=== PATIENT | female | born 1945 | race Caucasian/White ===

== ENCOUNTER → 2018-05-16 15:55 | Outpatient (REF) | payer OTHER, SELFPAY ==
[2018-05-16 20:14] LABS: HCT 38.5 % (36.0-46.0); HGB 12.4 g/dL (12.0-15.5); Mean Corp. HGB Concentration 32.2 g/dL (32.0-36.0); Mean Platelet Volume 11.5 fL (8.0-11.0); Platelet Count 198 x1000/uL (130-400); RBC 4.28 m/cumm (4.00-5.20); RBC Distribution Width 13.3 % (11.7-14.6); White Blood Cell Count 7.28 k/cumm (4.4-10.8)
[2018-05-16 22:05] LABS: ALT 19 U/L (12-78); AST 14 U/L (15-37); Albumin 3.7 g/dL (3.4-5.0); Alkaline Phosphatase 62 U/L (46-116); Anion Gap 9.3 mmol/L (3-11); BUN 13 mg/dL (7-18); Bilirubin, Total 0.4 mg/dL (0.2-1.0); CO2 27.7 mmol/L (21.0-32.0); CREATININE 0.88 mg/dL (0.55-1.02); Calcium 8.8 mg/dL (8.5-10.1); Chloride 105 mmol/L (98-107); Glucose 81 mg/dL (70-100); Potassium 3.8 mmol/L (3.5-5.1); Sodium 142 mmol/L (136-145); TSH (W/Ref FT4) 1.99 uIU/mL (0.358-3.74); Total Protein 6.8 g/dL (6.4-8.2); Vitamin B12 597 pg/mL (193-986)
== END ==
LOC: NCHCN 15:55
PROVIDERS: PCP Family Medicine; Visit Provider Family Medicine
DX: R41.3 Other amnesia (principal)
CPT/HCPCS: 80053; 85027; 82607; 82746; 84443

== ENCOUNTER → 2018-12-18 13:50 | Outpatient (BNVA) | payer OTHER, SELFPAY | PROVIDERS: PCP Family Medicine; Referring Provider Family Medicine; Visit Provider Nurse Practitioner Adult Health | DX: G31.84 Mild cognitive impairment of uncertain or unknown etiology (principal); I10 Essential (primary) hypertension | CPT/HCPCS: 99204; 99215 ==

== ENCOUNTER 2018-12-25 00:42 | Outpatient (CLI) | payer OTHER, SELFPAY ==
--- NOTE | 2018-12-25 15:30 | DI.MRI_ITS ---
SYMPTOM/DIAGNOSIS: NEW MEMORY PROBLEMS, R41.3, OTHER AMNESIA BRAIN MRI: The study was conducted according to the usual protocol. T 2 sagittal, T 2 axial, diffusion weighted axial, T 2 axial hemo, T 1 axial and T 2 FLAIR blade sequences were performed. A few scattered small regions of increased signal are noted in the frontoparietal white matter bilaterally, most consistent with small vessel disease. There is no evidence of a hemorrhage or mass. The ventricles are normal. The normal flow void is demonstrated in the [place] and visualized segments of the cerebral arteries. SUMMARY: No significant interval change when compared with the prior study of 05/18/2012. No evidence of a hemorrhage or mass. There are findings consistent with small vessel disease, nil else.
[2018-12-25 17:28] LABS: TSH 2.38 uIU/mL (0.358-3.74); Vitamin B12 1442 pg/mL (193-986)
== END 2018-12-25 01:02 ==
PROVIDERS: PCP Family Medicine; Visit Provider Nurse Practitioner Adult Health
DX: R41.3 Other amnesia (principal); R41.89 Other symptoms and signs involving cognitive functions and awareness; I67.9 Cerebrovascular disease, unspecified
CPT/HCPCS: 36415; 70551; 82607; 84443

== ENCOUNTER 2019-04-15 16:50 | Outpatient (REF) | payer OTHER, SELFPAY ==
[2019-04-15 18:25] LABS: HCT 38.2 % (36.0-46.0); HGB 12.3 g/dL (12.0-15.5); Mean Corp. HGB Concentration 32.2 g/dL (32.0-36.0); Mean Corpuscular Hemoglobin 29.1 pg (27.0-33.0); Mean Corpuscular Volume 90.5 fL (80-95); Mean Platelet Volume 11.2 fL (8.0-11.0); Platelet Count 196 x1000/uL (130-400); RBC 4.22 m/cumm (4.00-5.20); RBC Distribution Width 13.8 % (11.7-14.6); White Blood Cell Count 7.46 k/cumm (4.4-10.8)
[2019-04-15 18:47] LABS: Anion Gap 8.7 mmol/L (3-11); BUN 18 mg/dL (7-18); CO2 32.3 mmol/L (21.0-32.0); CREATININE 0.96 mg/dL (0.55-1.02); Calcium 9.1 mg/dL (8.5-10.1); Chloride 103 mmol/L (98-107); Estimated GFR 56.66 (mL/min/1.73m2); Ferritin 271 ng/mL (8-388); Glucose 82 mg/dL (70-100); Potassium 3.9 mmol/L (3.5-5.1); Sodium 144 mmol/L (136-145)
== END 2019-04-15 17:10 ==
LOC: NCHCN 16:50
PROVIDERS: PCP Family Medicine; Visit Provider Family Medicine
DX: I10 Essential (primary) hypertension (principal); D64.9 Anemia, unspecified
CPT/HCPCS: 80048; 85027; 82728

== ENCOUNTER 2019-05-08 00:56 | Outpatient (CLI) | payer OTHER, SELFPAY ==
--- NOTE | 2019-05-08 15:50 | DI.MAMMO_ITS ---
SYMPTOM/DIAGNOSIS: [facility] Z00.00 MAMMOGRAM: Mammograms were interpreted according to the usual protocol including computer analysis with CAD system, tomosynthesis and C view imaging. Comparison is made with prior examinations. Breast density category B. No suspicious microcalcifications are seen. No suspicious masses are present. There is a well circumscribed nodule in the lower inner quadrant of the left breast. It has shown slight interval increase in size compared to the prior examination. A spot compression and left breast ultrasound are requested for re-evaluation. IMPRESSION: Additional views of the left breast as described above. Category 0. Breast density category B. MQSA ASSESSMENT OF FINDINGS: Incomplete: Needs additional imaging evaluation. Category 0. Patient will receive a letter notifying them of these results. BI-RADS category B. There are scattered areas of fibroglandular density.
== END 2019-05-08 01:16 ==
PROVIDERS: PCP Family Medicine; Visit Provider Family Medicine
DX: Z12.31 Encounter for screening mammogram for malignant neoplasm of breast (principal); R92.8 Other abnormal and inconclusive findings on diagnostic imaging of breast
CPT/HCPCS: 77063; 77067

== ENCOUNTER 2019-05-24 02:22 | Outpatient (CLI) | payer OTHER, SELFPAY ==
--- NOTE | 2019-05-24 14:53 | DI.COMBO_ITS ---
SYMPTOMS/DIAGNOSIS: F/U ABNORMAL MAMMO, NODULE LEFT LOWER INNER QUADRANT ADDITIONAL MAMMOGRAPHIC VIEWS, LEFT BREAST, AND LEFT BREAST ULTRASOUND: Additional images are interpreted according to the usual protocol including tomosynthesis and 2D imaging. Additional mammographic views of the left breast and left breast ultrasound are interpreted in conjunction. These examinations were obtained to evaluate an enlarging mass of the left breast in approximately the 8 o'clock position. This mass was previously noted on examination of 08/25/2017 and ultrasound at that time showed the mass to be cystic and measuring about 8 mm in greatest diameter. On today's examination, the cystic mass is again identified with well- circumscribed borders and very low level internal echogenicity. No internal vascular flow. Dimensions are about 13 x 9 x 7 mm. CONCLUSION: Findings consistent with benign breast cyst, possibly with high protein content or internal hemorrhage. Follow-up ultrasound and left breast mammogram recommended in six months. Category 3, breast density category B. MQSA ASSESSMENT OF FINDINGS: Probably benign. Six month follow-up recommended. Category 3. Patient will receive a letter notifying them of these results. BI-RADS category B. There are scattered areas of fibroglandular density.
== END 2019-05-24 02:42 ==
PROVIDERS: PCP Family Medicine; Visit Provider Family Medicine
DX: N60.02 Solitary cyst of left breast (principal)
CPT/HCPCS: 76642; 77063; 77067

== ENCOUNTER 2019-10-03 11:27 | Observation (INO) | payer OTHER, SELFPAY ==
[2019-10-03] VITALS (34 sets, daily range): BP systolic 127–154; BP diastolic 41–62; PULSE 43–66; RESP 8–18; TEMP 36.8–37.2; O2SAT 95–99
--- NOTE | 2019-10-03 12:10 | DI.CT_ITS ---
EXAM: CT HEAD - STROKE PROTOCOL CT HEAD - STROKE PROTOCOL CLINICAL HISTORY: L-sided facial droop, L hand weakness.resolved. L-sided facial droop, L hand weakness.resolved TECHNIQUE: Imaging Protocol: Axial computed tomography images with coronal and sagittal reformatted images were created and reviewed COMPARISON: No exams were available for comparison FINDINGS: The ventricular system is normal in appearance. No evidence of acute intracranial hemorrhage, mass effect, or midline shift. The orbital structures are unremarkable. The temporal bone structures appear intact. Calvarium: Normal. Visualized Paranasal sinuses/Mastoids: Clear. IMPRESSION: Normal cranial CT. DATA REPOSITORY: All CT scans at this facility are submitted to the National Radiology Data Registry (NRDR) Dose Index Registry (DIR) with the [employer] (ACR). RADIATION OPTIMIZATION: All CT scans at this facility use at least one of these dose optimization te chniques: automated exposure control; mA and/or kV adjustment per patient size (includes targeted exa ms where dose is matched to clinical indication); or iterative reconstruction.
--- NOTE | 2019-10-03 12:11 | W.ED.GENAD ---
Discharge Plan Disposition Patient Disposition: [facility] INPATIENT Discharge Details Chief Complaint: CVA/TIA Clinical Impression: TIA (transient ischemic attack), Bradycardia Primary Care Provider: Cristiane Rodriguez ED Provider: Iker Muñiz Home Meds and New Rx's Prescriptions: No Action pantoprazole 40 mg tablet,delayed release (DR/EC) 40 mg PO QAM RF: 0 cyanocobalamin (vitamin B-12) 1,000 mcg capsule 1,000 mcg PO DAILY RF: 0 ascorbic acid (vitamin C) 1,000 mg tablet 1 gm PO DAILY RF: 0 calcium carbonate [Calcium 600] 600 mg calcium (1,500 mg) tablet 600 mg PO TID RF: 0 aspirin [Aspir-81] 81 MG tablet,delayed release (DR/EC) 81 mg PO DAILY RF: 0 atenolol 50 MG tablet 50 mg PO DAILY RF: 0 Mina-Citrate 1 EACH tablet 1 ea PO DAILY RF: 0 citalopram [Celexa] 40 MG tablet 40 mg PO DAILY RF: 0 sertraline 100 mg Tablet 100 mg PO DAILY RF: 0 chlorthalidone 50 mg Tablet 50 mg PO DAILY RF: 0 famotidine 20 mg Tablet 40 mg PO DAILY RF: 0 PreserVision AREDS [id number] Tablet 1 tab PO DAILY RF: 0 Tumeric 1,000 mg PO DAILY RF: 0 Medical Decision Making This is a nontoxic-appearing 74-year-old female who presents to the emergency department with symptoms concerning for TIA earlier this morning. She shows sinus bradycardia on the monitor with a pulse rate as low as 45 bpm. Has had a stable blood pressure with systolics in the 150 range. No heart block on EKG. Her labs are negative for anything acute at this time. Head CT read as normal. Case discussed with neurology who also agrees that TIA most likely. Plan is to admit with MRI/MRA head neck possible cardiac echo and prolonged telemetry Leung. Aspirin 81 mg p.o. already given in the field. Case discussed with Dr. Pedor who will admit. HPI General Date/Time Provider Initiated Documentation: 10/03/19 11:38. HPI Narrative: Patient is a 74-year-old female with significant past medical history for hypertension, GERD depression and anxiety who presents to the emergency department with reported left-sided facial droop and left arm weakness most notable at 930 this morning witnessed by her daughter whom she lives with. Symptoms have completely resolved since the onset at 9:30 AM. She states that she was having difficulty with word finding along with weakness in her left hand which resulted in her dropping her cell phone roughly 6-8 times. She denies any symptoms similar to this in the past. She denies any recent chest pain however has had intermittent episodes of a racing heart sensation with lightheadedness. She denies any recent illness. No head or neck trauma. She has full recollection of the event preceding. She does state that over the last several months she has been under substantial stress secondary to having to take care of her who is been ill. She also reports intermittent bouts of word finding/word searching events. Related Data Home Medications Medication Instructions Recorded Confirmed Mina-Citrate 1 ea PO DAILY 01/22/16 10/03/19 aspirin [Aspir-81] 81 mg PO DAILY tab-cap 01/22/16 10/03/19 atenolol 50 mg PO DAILY tab-cap 01/22/16 10/03/19 citalopram [Celexa] 40 mg PO DAILY tab-cap 01/22/16 10/03/19 ascorbic acid (vitamin C) 1,000 mg 1 gm PO DAILY tab 12/18/18 10/03/19 tablet calcium carbonate 600 mg calcium 600 mg PO TID tab 12/18/18 10/03/19 (1,500 mg) tablet cyanocobalamin (vitamin B-12) 1,000 mcg PO DAILY 12/18/18 10/03/19 1,000 mcg capsule pantoprazole 40 mg tablet,delayed 40 mg PO QAM tab 12/18/18 10/03/19 release Tumeric 1,000 mg PO DAILY 10/03/19 10/03/19 chlorthalidone 50 mg PO DAILY 10/03/19 10/03/19 famotidine 40 mg PO DAILY 10/03/19 10/03/19 sertraline 100 mg PO DAILY 10/03/19 10/03/19 vitamins A,C,F-brdr-dgnzxs 1 tab PO DAILY 10/03/19 10/03/19 [PreserVision AREDS] Allergies Allergy/AdvReac Type Severity Reaction Status Date / Time Fish Containing Products Allergy Intermediate Verified 10/03/19 11:43 Penicillins Allergy Intermediate Verified 10/03/19 11:43 lactose AdvReac Intermediate Diarrhea Unverified 10/03/19 11:43 General Stated Complaint: CVA/TIA KYLEE: 2 Review of Systems Constitutional Constitutional: Denies body ache(s), Denies chills, Denies fatigue, Denies frequent falls, Denies headache(s) and Denies lethargy Eyes Eyes: Denies blind spots, Denies blurry vision, Denies change in vision, Denies diplopia, Denies loss of peripheral vision and Denies loss of vision ENT Ears, Nose, Mouth, and Throat: Denies vertigo, Denies dizziness, Denies headache(s) and Denies disequilibrium Cardiovascular Cardiovascular: Denies chest pain, Denies diaphoresis, Denies syncope, Reports rapid heart rate, Denies edema, Denies irregular heart rhythm, Denies claudication, Denies leg edema, Reports lightheadedness, Denies palpitations, Denies dyspnea and Denies orthopnea Respiratory Respiratory: Denies dyspnea Gastrointestinal Gastrointestinal: Denies diarrhea, Denies nausea and Denies vomiting Musculoskeletal Musculoskeletal: Denies abnormal gait, Denies back pain, Denies arthralgias and Denies numbness Integumentary/Breasts Skin/Breast: Denies rash Neurologic Neurologic: Denies abnormal gait, Denies behavioral changes, Denies confusion, Denies vertigo, Denies dizziness, Denies syncope, Denies frequent falls, Denies headache(s), Reports lack of coordination, Reports focal weakness, Denies loss of vision, Denies numbness, Denies convulsions, Denies seizure-like activity, Denies sensory deficit, Denies paresthesias and Denies disequilibrium Psychiatric Psychiatric: Denies behavioral changes and Denies confusion Endocrine Endocrine: Denies fatigue and Denies palpitations Hematologic/Lymphatic Hematologic/Lymphatic: Denies easy bleeding and Denies easy bruising [facility] Medical History Anxiety (Chronic) Depression (Chronic) GERD (gastroesophageal reflux disease) Heart burn Hypertension (Chronic) Surgical History Bladder Surgery Cholecystectomy EGD - MAC (07/12/17) pubovaginal sling Vaginal hysterectomy Family History Mother Colon cancer Social History Smoking/Tobacco Use Status: Former Tobacco Use Drug use: Never Exam Const General: cooperative, healthy appearing, comfortable, no acute distress and well developed Orientation: alert, awake and oriented x3 HENMT Head: normal to inspection, no palpable skull fracture, normocephalic and atraumatic Ears: hearing grossly normal bilaterally General nose exam: external nose normal Face and sinus: normal facial exam Mouth: oral mucosae normal Teeth and gingiva: dentition normal Throat: posterior oropharynx normal Eyes General: appearance normal, both eyes and all related structures Visual Mendoza: normal visual mendoza by confrontation Alignment and Position: alignment normal Periorbital: periorbital findings normal Eyelids: eyelids normal Conjunctivae: conjunctivae normal Pupils: PERRL EOM: EOM intact bilaterally Neck Neck: normal visual inspection, full ROM and no meningeal signs Chest Chest: normal inspection of the chest and normal palpation of entire chest wall Resp Effort & Inspection: normal respiratory effort and able to speak in complete sentences Auscultation: clear to auscultation bilaterally Cardio Rate: regular rate Rhythm: regular rhythm Heart Sounds: S1 normal and S2 normal Bruits: no carotid bruits Pulses: normal peripheral pulses GI Inspection: normal to inspection Palpation: soft Skin General skin exam: no rashes or lesions noted Neuro Cranial Nerves: CN's II-XI intact bilaterally Cognition: normal cognition Speech: speech normal Gait: normal gait Motor: muscle tone normal throughout Sensory Exam: no sensory deficits noted Extrem General: normal to inspection Course Vital Signs Vital signs: Vital Signs Temperature 37 C 10/03/19 11:38 Pulse 54 L 10/03/19 11:38 Respiratory Rate 13 10/03/19 11:38 Blood Pressure 154/58 H 10/03/19 11:38 Pulse Oximetry 97 10/03/19 11:38 Temperature 37 C 10/03/19 11:38 Temperature Source Skin 10/03/19 11:38 Pulse 54 L 10/03/19 11:38 Respiratory Rate 13 10/03/19 11:38 Respiratory Effort Non-Labored 10/03/19 11:38 Blood Pressure 154/58 H 10/03/19 11:38 Blood Pressure Position Sitting 10/03/19 11:38 Pulse Oximetry 97 10/03/19 11:38 Oxygen Delivery Method Room Air 10/03/19 11:38 Oxygen Flow Rate 0 10/03/19 11:38 Pain Level 0 10/03/19 11:38
--- NOTE | 2019-10-03 12:16 | DI.RAD_ITS ---
EXAM: XR CHEST 2V PA LATERAL CLINICAL HISTORY: Left hand/facial weakness TECHNIQUE: COMPARISON: BARIUM SWALLOW UGI 2V CXR from 09/01/2010 FINDINGS: The heart is mildly enlarged. There is a large retrocardiac hiatus hernia. Lungs appear grossly michelle ar and well expanded. No pleural effusion seen. IMPRESSION: No evidence of acute process.
[2019-10-03 13:06] LABS: Abs Immature Grans 0.02 k/cumm (0.0-0.09); Absolute Basophil Count 0.03 k/cumm (0.0-0.2); Absolute Eosinophil Count 0.16 k/cumm (0.0-0.7); Absolute Lymphocyte Count 2.07 k/cumm (1.2-3.4); Absolute Neutrophil Count 3.76 k/cumm (1.2-6.7); Basophils % 0.5; Eosinophils % 2.4; HCT 39.1 % (36.0-46.0); HGB 12.4 g/dL (12.0-15.5); Immature Grans % 0.3; Lymphocytes % 31.2; Mean Corp. HGB Concentration 31.7 g/dL (32.0-36.0); Mean Corpuscular Hemoglobin 28.6 pg (27.0-33.0); Mean Corpuscular Volume 90.3 fL (80-95); Mean Platelet Volume 10.5 fL (8.0-11.0); Neutrophils % 56.6; Platelet Count 209 x1000/uL (130-400); RBC 4.33 m/cumm (4.00-5.20); RBC Distribution Width 13.8 % (11.7-14.6); White Blood Cell Count 6.64 k/cumm (4.4-10.8)
[2019-10-03 13:22] LABS: ALT 13 U/L (14-59); AST 12 U/L (15-37); Albumin 3.6 g/dL (3.4-5.0); Alkaline Phosphatase 52 U/L (46-116); Anion Gap 8.9 mmol/L (3-11); BUN 18 mg/dL (7-18); Bilirubin, Total 0.5 mg/dL (0.2-1.0); CO2 30.1 mmol/L (21.0-32.0); Calcium 8.9 mg/dL (8.5-10.1); Chloride 106 mmol/L (98-107); Glucose 95 mg/dL (74-106); Potassium 3.3 mmol/L (3.5-5.1); Sodium 145 mmol/L (136-145); Total Protein 6.9 g/dL (6.4-8.2)
[2019-10-03 13:27] LABS: Troponin I < 0.05 ng/Ml (<0.06)
--- NOTE | 2019-10-03 14:23 | HPE_ITS ---
Date of service: 10/03/19 Time of Service: 14:23 Assessment and Plan Assessment and plan (1) TIA (transient ischemic attack): Status: Acute Assessment and plan: presentation of L sided facial droop is concerning for TIA, however patient is currently without neuro defictis. Her expressive aphasia is not noticeable on exam and more likely chronic and her baseline. will admit for TIA/stroke workup. will monitor on tele. MRI pending. will cont aspirin and begin empiric statin. lipid panel and tsh pending. (2) Bradycardia: Status: Acute Assessment and plan: mild, and likely secondary to beta gaby. EKG with sinus bradycardia no heart block, arrythmia, or acute ischemia. BP stable. will hold atenolol (3) Hypertension: Status: Chronic Assessment and plan: BP controlled below goal. would allow permissive hypertension for first 24 hrs in case this is acute stroke. will hold atenolol as above. will also hold chlorthalidone (4) GERD (gastroesophageal reflux disease): Status: None Assessment and plan: with hiatal hernia, will cont R[employer] SCI[employer]IST h2 gaby and ppi (5) DVT prophylaxis: Status: Acute Assessment and plan: sub q lovenox History of Present Illness History of Present Illness Chief Complaint: L sided facial droop Narrative: 74 y/o F with cognitive impairment (followed by neurology), GERD, HTN, depression who presents with L sided facial droop beginning around 9:30 am the day of admission. According to patients daughter she has had more word finding difficulty than usual recently however it is unclear how acute this is. patient has no vision change, weakness, change in strength or sensation. She has some chronic dysphagia from her GERD/hiatel hernia but has been eating and drinking and swallowing pills today. Upon arrival to the ED she was bradycardic to the 40s. EKG showed . Troponin was negative. CT head showed no acute abnormalities. CXR mild cardiomegaly and known hiatal hernia. Labs notable only for mild hypokalemia. Glucose normal. TSH pending but was normal in December. Patient has no focal neurologic defictis on arrival. Case discussed between ED and neurology. MRI head/neck recommended. 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 She is under stress because his health is declining. Her daugther Ksenia is present at the time of exam as well. COUNT INCLUDES THE [facility] Medical History Anxiety (Chronic) Depression (Chronic) GERD (gastroesophageal reflux disease) Heart burn Hypertension (Chronic) Surgical History Bladder Surgery Cholecystectomy EGD - MAC (07/12/17) pubovaginal sling Vaginal hysterectomy Family History Mother Colon cancer Social History Smoking/Tobacco Use Status: Former Tobacco Use Drug use: Never Meds Home Medications and Allergies Home Medications Medication Instructions Recorded Confirmed Type Mina-Citrate 1 ea PO DAILY 01/22/16 10/03/19 History aspirin [Aspir-81] 81 mg PO DAILY tab-cap 01/22/16 10/03/19 History atenolol 50 mg PO DAILY tab-cap 01/22/16 10/03/19 History citalopram [Celexa] 40 mg PO DAILY tab-cap 01/22/16 10/03/19 History ascorbic acid (vitamin C) 1,000 mg 1 gm PO DAILY tab 12/18/18 10/03/19 History tablet calcium carbonate 600 mg calcium 600 mg PO TID tab 12/18/18 10/03/19 History (1,500 mg) tablet cyanocobalamin (vitamin B-12) 1,000 mcg PO DAILY 12/18/18 10/03/19 History 1,000 mcg capsule pantoprazole 40 mg tablet,delayed 40 mg PO QAM tab 12/18/18 10/03/19 History release Tumeric 1,000 mg PO DAILY 10/03/19 10/03/19 History chlorthalidone 50 mg PO DAILY 10/03/19 10/03/19 History famotidine 40 mg PO DAILY 10/03/19 10/03/19 History sertraline 100 mg PO DAILY 10/03/19 10/03/19 History vitamins A,C,B-dgtz-tngdak 1 tab PO DAILY 10/03/19 10/03/19 History [PreserVision AREDS] Allergies Allergy/AdvReac Type Severity Reaction Status Date / Time Fish Containing Products Allergy Intermediate Verified 10/03/19 11:43 Penicillins Allergy Intermediate Verified 10/03/19 11:43 lactose AdvReac Intermediate Diarrhea Unverified 10/03/19 11:43 Exam Narrative Exam Narrative: GEN: NAD, appears younger than stated HEENT: NCAT, MMM NECK: no carotid bruits CV: bradycardic, regular, no murmur LUNGS: CTAB. no w/r/r ABS: soft, NT, ND NEURO: CNII-XII intact, EOMI, PERRL, AAOX3, strength 5/5 in bl UE and LE, sensation in UE and LE equal and intact, cerebellar testing is normal Results Labs Result diagrams: 10/03/19 12:59 10/03/19 12:59 Labs: Laboratory Results - last 24 hr 10/03/19 10/03/19 12:59 12:59 WBC 6.64 RBC 4.33 Hgb 12.4 Hct 39.1 MCV 90.3 MCH 28.6 MCHC 31.7 L RDW 13.8 Plt Count 209 MPV 10.5 Immature Gran % 0.3 Neutrophils % 56.6 Lymphocytes % 31.2 Monocytes % 9.0 Eosinophils % 2.4 Basophils % 0.5 Absolute Neutrophils 3.76 Absolute Lymphocytes 2.07 Absolute Monocytes 0.60 Absolute Eosinophils 0.16 Absolute Basophils 0.03 Sodium 145 Potassium 3.3 L Chloride 106 Carbon Dioxide 30.1 Anion Gap 8.9 BUN 18 Creatinine 0.90 Estimated GFR/1.73 m2 >= 60.00 Glucose 95 Calcium 8.9 Magnesium 2.0 Total Bilirubin 0.5 AST 12 L ALT 13 L Alkaline Phosphatase 52 Troponin I < 0.05 Total Protein 6.9 Albumin 3.6 Last Vital Signs Temp 37 C 10/03/19 11:38 Pulse 47 L 10/03/19 13:46 Resp 17 10/03/19 13:50 BP 145/47 H 10/03/19 13:46 Pulse Ox 96 10/03/19 13:50
[2019-10-03 14:26] LABS: Bilirubin Negative (Negative); Blood Trace-intact (Negative); Clarity Clear (Clear); Glucose Negative (Negative); Ketones Negative (Negative); Leukocyte Esterase Negative (Negative); Nitrite Negative (Negative); Specific Gravity 1.015 (1.005-1.025); Urobilinogen 0.2 EU/dL (Up TO 0.2)
[2019-10-03 14:47] LABS: RBC 0-2 HPF (0-2); WBC 0-2 HPF (0-5)
[2019-10-03 14:48] LABS: Bacteria Rare HPF (Negative); C & S Indicated? No; Casts Negative LPF (Negative); Crystals Negative HPF (Negative); Epithelial Cells Rare HPF (Negative); Mucus Trace (Negative)
[2019-10-03 15:17] LABS: TSH 1.43 uIU/mL (0.36-3.74)
--- NOTE | 2019-10-03 15:17 | DI.MRI_ITS ---
EXAM: MR BRAIN WO CLINICAL HISTORY: tia vs stroke,cognitive impairment, r41.3 TECHNIQUE: Multiplanar multisequence MRI was performed. COMPARISON: MR ANGIO BRAIN WO from 10/03/2019 CT HEAD - STROKE PROTOCOL from 10/03/2019 MR ANGIO NECK WO from 10/03/2019 FINDINGS: MR examination of the brain was performed according to the usual protocol. Ventricular system is nor mal in appearance. The orbital and temporal bone structures appear intact. No significant signal ab normality identified on FLAIR images, however there is a small focal area of high signal seen in the temporal lobe cortex of the high sylvian fissure. This corresponds to a focus of ADC map decreased s ignal. The findings are suggestive of a small focal cortical infarction. Susceptibility weighted eagle ges show abnormal signal at this site as well, presumably representing microhemorrhage. 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
--- NOTE | 2019-10-03 15:17 | DI.MRI_ITS ---
EXAM: MR ANGIO NECK WO CLINICAL HISTORY: tia. TECHNIQUE: Multiplanar multisequence MRI was performed. COMPARISON: No exams were available for comparison FINDINGS: MR angiography of the cervical region was performed according to the usual protocol utilizing 2D and 3D imaging. Proximal common carotid arteries not well visualized. Distal common carotid, internal c arotid, and external carotid arteries are unremarkable in appearance with no evidence of aneurysm dis section or stenosis. IMPRESSION: Negative MRA carotid region.
--- NOTE | 2019-10-03 15:17 | DI.MRI_ITS ---
EXAM: MR ANGIO BRAIN WO CLINICAL HISTORY: tia. TECHNIQUE: Multiplanar multisequence MRI was performed. COMPARISON: No exams were available for comparison FINDINGS: MR angiography the [id number] region was performed according to protocol utilizing 2D and 3D im aging. The vertebral and basilar arteries are unremarkable with no evidence of aneurysm stenosis or dissecti on. Internal carotid arteries are unremarkable bilaterally with no evidence of aneurysm stenosis or disse ction. Middle cerebral anterior cerebral and posterior cerebral arteries are unremarkable in appeara nce with no evidence of aneurysm dissection or stenosis. The right anterior cerebral artery is suppl ied across anterior communicating artery. IMPRESSION: Negative MR angiography [id number] region
--- NOTE | 2019-10-03 16:17 | DI.VRAD_ITS ---
PROCEDURE INFORMATION: Exam: MR Angiography Neck Without Contrast Exam date and time: 10/03/2019 4:02 PM Age: 74 years old Clinical indication: Cognitive deficit; Type not specified TECHNIQUE: Imaging protocol: Magnetic resonance angiography of the neck without contrast. 3D rendering: MIP and/or 3D reconstructed images were created by the technologist. COMPARISON: No relevant prior studies available. FINDINGS: Right common carotid artery: Unremarkable. No stenosis. No dissection or occlusion. Right internal carotid artery: Unremarkable extracranial segment. No stenosis. No dissection or occlusion. Right external carotid artery: Unremarkable. No stenosis. No dissection or occlusion of the origin. Right vertebral artery: Unremarkable. No stenosis. No dissection or occlusion. Left common carotid artery: Unremarkable. No stenosis. No dissection or occlusion. Left internal carotid artery: Unremarkable extracranial segment. No stenosis. No dissection or occlusion. Left external carotid artery: Unremarkable. No stenosis. No dissection or occlusion of the origin. Left vertebral artery: Unremarkable. No stenosis. No dissection or occlusion. IMPRESSION: No acute abnormality. COMMENT: Reference per NASCET criteria for degree of stenosis: Mild: less than 50% stenosis. Moderate: 50-69% stenosis. Severe: 70-94% stenosis. Near occlusion: 95-99% stenosis. Dictated and Authenticated by: Juan Rodgers MD. Ordering:BEATRIZ Mathur MD
--- NOTE | 2019-10-03 16:22 | DI.VRAD_ITS ---
PROCEDURE INFORMATION: Exam: MR Angiogram Head Without and With Contrast, Arteries Exam date and time: 10/03/2019 4:02 PM Age: 74 years old Clinical indication: Cognitive deficit; Type not specified TECHNIQUE: Imaging protocol: MR angiogram head without and with intravenous contrast. Exam focused on the arteries. 3D rendering: MIP and/or 3D reconstructed images were created by the technologist. COMPARISON: MR brain wo 12/25/2018 4:59 PM FINDINGS: Right internal carotid artery: Unremarkable. Intracranial segment is patent with no significant stenosis. No aneurysm. Right anterior cerebral artery: Unremarkable. No occlusion or significant stenosis. No aneurysm. Right middle cerebral artery: Unremarkable. No occlusion or significant stenosis. No aneurysm. Right posterior cerebral artery: Unremarkable. No occlusion or significant stenosis. No aneurysm. Right vertebral artery: Unremarkable. No occlusion or significant stenosis. No aneurysm. Left internal carotid artery: Unremarkable. Intracranial segment is patent with no significant stenosis. No aneurysm. Left anterior cerebral artery: Unremarkable. No occlusion or significant stenosis. No aneurysm. Left middle cerebral artery: Unremarkable. No occlusion or significant stenosis. No aneurysm. Left posterior cerebral artery: Unremarkable. No occlusion or significant stenosis. No aneurysm. Left vertebral artery: Unremarkable. No occlusion or significant stenosis. No aneurysm. Basilar artery: Unremarkable. No occlusion or significant stenosis. No aneurysm. IMPRESSION: No acute abnormality. Dictated and Authenticated by: Juan Rodgers MD. Ordering:BEATRIZ Mathur MD
--- NOTE | 2019-10-03 16:30 | DI.VRAD_ITS ---
PROCEDURE INFORMATION: Exam: MR Head Without Contrast Exam date and time: 10/03/2019 4:07 PM Age: 74 years old Clinical indication: Other: Cognitive impairment TECHNIQUE: Imaging protocol: MR of the head without contrast. 3D rendering: MIP and/or 3D reconstructed images were created by the technologist. COMPARISON: MR brain wo 12/25/2018 4:59 PM FINDINGS: Brain: Mild chronic microvascular ischemic changes. Small rounded GRE signal in the right parietal lobe, likely representing chronic microhemorrhage. Ventricles: Normal. No ventriculomegaly. Bones/joints: Unremarkable. Soft tissues: Unremarkable. Sinuses: Normal as visualized. No acute sinusitis. Mastoid air cells: Normal as visualized. No mastoid effusion. Orbits: Unremarkable. IMPRESSION: No acute intracranial abnormality. Dictated and Authenticated by: Juan Rodgers MD. Ordering:BEATRIZ Mathur MD
[2019-10-03] MEDS: Pravastatin 20 MG TAB 80 MG PO (19:46)
[2019-10-03] MEDS: Calcium Carbonate 1.5 GM TAB PO (19:46)
[2019-10-04] VITALS (7 sets, daily range): BP systolic 124–145; BP diastolic 57–73; PULSE 44–54; RESP 16–18; TEMP 36.1–36.6; O2SAT 93–97
[2019-10-04 07:12] LABS: Abs Immature Grans 0.01 k/cumm (0.0-0.09); Absolute Basophil Count 0.04 k/cumm (0.0-0.2); Absolute Eosinophil Count 0.22 k/cumm (0.0-0.7); Absolute Lymphocyte Count 2.79 k/cumm (1.2-3.4); Absolute Monocyte Count 0.68 k/cumm (0.11-0.7); Absolute Neutrophil Count 2.93 k/cumm (1.2-6.7); Basophils % 0.6; Eosinophils % 3.3; HCT 38.5 % (36.0-46.0); HGB 12.2 g/dL (12.0-15.5); Immature Grans % 0.1; Lymphocytes % 41.8; Mean Corp. HGB Concentration 31.7 g/dL (32.0-36.0); Mean Corpuscular Hemoglobin 28.6 pg (27.0-33.0); Mean Corpuscular Volume 90.2 fL (80-95); Mean Platelet Volume 10.6 fL (8.0-11.0); Monocytes % 10.2; Platelet Count 203 x1000/uL (130-400); RBC 4.27 m/cumm (4.00-5.20); RBC Distribution Width 13.8 % (11.7-14.6); White Blood Cell Count 6.67 k/cumm (4.4-10.8)
[2019-10-04 07:20] LABS: Anion Gap 7.3 mmol/L (3-11); BUN 18 mg/dL (7-18); CO2 31.7 mmol/L (21.0-32.0); CREATININE 0.84 mg/dL (0.55-1.02); Calcium 9.3 mg/dL (8.5-10.1); Chloride 104 mmol/L (98-107); Glucose 104 mg/dL (74-106); Potassium 3.1 mmol/L (3.5-5.1); Sodium 143 mmol/L (136-145)
[2019-10-04] MEDS: Chlorthalidone 25 MG TAB 50 MG PO (07:49)
[2019-10-04] MEDS: Cyanocobalamin 500 MCG TAB 1000 MCG PO (07:49)
[2019-10-04] MEDS: Aspirin E.C. 81 MG TABEC PO (07:49)
[2019-10-04] MEDS: Calcium Carbonate 1.5 GM TAB PO ×2 (07:49→14:00)
[2019-10-04] MEDS: Famotidine 20 MG TAB 40 MG PO (07:50)
[2019-10-04] MEDS: Sertraline 50 MG TAB 100 MG PO (07:50)
[2019-10-04] MEDS: Ascorbic Acid 500 MG TAB 1000 MG PO (07:50)
[2019-10-04] MEDS: Pantoprazole 40 MG TABCR PO (07:50)
[2019-10-04] MEDS: Enoxaparin 40 MG/0.4 ML SYR SC (07:51)
[2019-10-04 08:12] LABS: Calculated LDL 131 mg/dL; Cholesterol 212 mg/dL (<200); HDL Cholesterol 42 mg/dL (40-60); Triglyceride 195 mg/dL (<150)
--- NOTE | 2019-10-04 09:48 | IN_ITS ---
Date of service: 10/04/19 Time of Service: 09:04 PT Notes Visit Reasons: TIA VS STROKE Physical Therapy Inpatient Initial Evaluation Date: 10/04/2019 Referring Doctor: Kareen Pedro MD PT Orders: PT CONSULT: Limited ability Precautions: Fall. Standard. Activity as tolerated. Patient Profile/Admitting Diagnosis: Patient is a 74-year-old female who presented to the ED i on 10/03/2019 with chief presentation of left-sided facial droop and left arm weakness with associated word finding difficulties. Patient is diagnosed with transient ischemic attack, bradycardia, hypertension, and GERD. Per update from Dr. 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 PMHX: Medical History Anxiety (Chronic) Depression (Chronic) GERD (gastroesophageal reflux disease) Heart burn Hypertension (Chronic) Surgical History Bladder Surgery Cholecystectomy EGD - MAC (07/12/17) pubovaginal sling Vaginal hysterectomy Social History/Home Situation: Marjorie lives with and a daughter in a 2 floor house with 4 steps to enter with a wide rails on both sides. She has 3 steps onto a landing with 8 steps that leads to another landing and then finally another 3 steps that leads onto the second floor of the house were their bedroom is. Patient is independent with all aspects of mobility ADL performance without the use of an assistive ambulatory device nor adaptive equipment. 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 Although she says that home health aides come twice a week for 45 minutes each time to provide assistance with bathing her , she continues to do all the other chores in the house as well as bringing in wood from outside to maintain heat in the house. Equipment Owned/DME: Patient has a walker but she emphasizes that she has not used this Subjective: Patient is agreeable to a PT consult. She expresses how her caregiving duties for her are beginning to take its toll on her. She says that she has decided to be more accepting of [facility] and that her daughter Ksenia would make sure that this happens. She denies headache, chest pain, and dizziness throughout physical therapy consult and treatment today. Objective: General Observation: Telemetry monitoring in place. IV access still in place in the right UE. Mental Status: Alert and oriented x 4 Pain: 0/10 ROM: Right Upper Extremity: Shoulder Flexion WFL. Shoulder abduction WFL. Elbow flexion WFL. Wrist flexion WFL. Opening and closing of hand WFL. Left Upper Extremity: Shoulder Flexion WFL. Shoulder abduction WFL. Elbow flexion WFL. Wrist flexion WFL. Opening and closing of hand WFL. Right Lower Extremity: Hip flexion WFL. Hip abduction WFL. Knee flexion WFL. Ankle dorsiflexion WFL. Ankle plantarflexion WFL. Left Lower Extremity: Hip flexion WFL. Hip abduction WFL. Knee flexion WFL. Ankle dorsiflexion WFL. Ankle plantarflexion WFL. Strength: Right Upper Extremity: Shoulder flexors 5/5. Shoulder abductors 5/5. Elbow flexors 5/5. Elbow extensors 5/5. [employer] Mitigation Officer strong. Left Upper Extremity: Shoulder flexors 5/5. Shoulder abductors 5/5. Elbow flexors 5/5. Elbow extensors 5/5. Hazard Mitigation Officer not as strong as the right. Right Lower Extremity: Hip flexors 5/5. Hip abductors 5/5. Knee flexors 5/5. Knee extensors 5/5. Ankle dorsiflexors 5/5. Ankle plantarflexors 5/5. Left Lower Extremity:Hip flexors 5/5. Hip abductors 5/5. Knee flexors 5/5. Knee extensors 5/5. Ankle dorsiflexors 5/5. Ankle plantarflexors 5/5. Sensation: Intact as to pain and pressure on bilateral lower extremities. Bed Mobility/Transfers: Rolling independent independent Supine to sit independent Sit to supine independent Sit to stand independent Stand to sit independent Bed to chair independent Chair to bed independent Gait: Patient was able to tolerate level surface ambulation of 270 feet without an assistive ambulatory device with reciprocal gait pattern. No loss of balance seen. No complaints of headache, chest pain, and dizziness throughout activity. Patient states that her victorino has stayed the same as before hospital admission. Balance: Static Sitting: Normal Dynamic Sitting: Normal Static Standing: Normal Dynamic Standing: Good Special Tests: Mobility Limitations Standardized Measure [facility] 6 clicks Basic Mobility Inpatient Short Form: Raw Score: 24 CMS Score: 0% deficit 4-Stage Balance Test: Patient was able to assume and maintain all 4 positions of putting feet together, semi-tandem, full-time tandem, and one-legged stance. She initially had difficulty with semi-tandem with the left foot leading but she was able to safely do so after the second try. Informed Consent/Education: Patient instructed in purpose of PT consult and plan of care. Assessment: Patient is a 74-year-old female who presented to the ED i on 10/03/2019 with chief presentation of left-sided facial droop and left arm weakness with associated word finding difficulties. Patient is diagnosed with transient ischemic attack, bradycardia, hypertension, and GERD. Per update from Dr. 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 Patient has a good support system in place among her two daughters and son. She may need supervision to manage steps at home to ensure safety. Patient presents with clinical signs and symptoms consistent with current/admitting diagnoses that have resulted to mobility limitations, gait instability, generalized weakness, and impairment of motor control as demonstrated by the following impairment level findings: 1. Asymmetric roller hand with the left mildly weak but remains functional 2. Impaired activity tolerance Impairments are contributing to the following functional limitations: 1. Supervision with stair negotiation Patient is [place] a 87445 moderate complexity based on the following: History: Patient is a 74-year-old female who presented to the ED i on 10/03/2019 with chief presentation of left-sided facial droop and left arm weakness with associated word finding difficulties. Patient is diagnosed with transient ischemic attack, bradycardia, hypertension, and GERD. Per update from Dr. 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 Examination: Demonstrable impairment in strength, balance, and range of motion with underlying impairments and functional limitations as documented above Presentation:Evolving Decision Makin moderate complexity Goals: N/A. PT consult only. Plan of Care/Treatment Plan: N/A. PT consult only. DISCHARGE RECOMMENDATIONS: Patient will benefit from increased frequency and duration of help by HH aides for her in order to decrease burden of care for patient. May be worth doing just a HH PT evaluation for home safety recommendations, family/caregiver education and training for safety, and reassessment to manage 14 steps to the second floor. TREATMENT CODE/TIME: 76412 x 32 minutes beginning at 9:04 AM. Thank you very much for this referral. Dior Jackson PT, DPT, CLT [facility] [place], [place]
--- NOTE | 2019-10-04 11:00 | PGE_ITS ---
Date of Service Date of service: 10/04/19 Time of Service: 11:00 Subjective Subjective Interval history since last seen: The patient was NOT seen by me. This is a chart note only! Ms. Orellana is a 74 year-old woman with hypertension, depression, and increased stress who is anti-platelet naive and admitted with transient L face and arm weakness x1 hour. She has undergone the following work-up: -CT: no acute findings. I reviewed this personally. -MRI brain: small linear area of acute ischemia in the awa-medial right temporal lobe. Mild chronic small vessel disease. I reviewed this personally. -MRA head and neck: no major findings though I note athero in the bilateral sigmoid carotids, L>R. I reviewed this personally. -LDL 131 Stroke etiology likely small vessel disease, however, cardiac embolus remains in the differential. She has been started on aspirin. Given small stroke size and resolution of symptoms. I recommend: -Plavix 300mg now and 75mg daily x30 days along with aspirin 81mg daily for secondary stroke prevention. At 30 days, continue aspirin alone. -Agree with atorvastatin 40mg HS for stroke prevention. -Needs TTE, 30 extended heart monitor, and A1c. Please call with any questions or concerns. She should follow-up in the neurology clinic. Objective Objective Clinical Data: Abnormal lab results 10/03/19 10/03/19 10/03/19 Range/Units 12:59 12:59 14:05 MCHC 31.7 L (32.0-36.0) g/dL Potassium 3.3 L (3.5-5.1) mmol/L AST 12 L (15-37) U/L ALT 13 L (14-59) U/L Urine Blood Trace-intact H (Negative) 10/04/19 10/04/19 Range/Units 06:22 06:22 MCHC 31.7 L (32.0-36.0) g/dL Potassium 3.1 L (3.5-5.1) mmol/L AST (15-37) U/L ALT (14-59) U/L Urine Blood (Negative) Vital Signs Temperature 36.3 C L 10/04/19 07:35 Temperature Source Tympanic 10/04/19 07:35 Pulse 44 L 10/04/19 08:18 Pulse Rhythm Regular 10/04/19 08:42 Pulse 49 L 10/03/19 15:01 Respiratory Rate 18 10/04/19 07:35 Respiratory Effort Non-Labored 10/04/19 08:42 Respiratory Depth Normal 10/04/19 08:42 Respiratory Pattern Normal 10/04/19 08:42 Blood Pressure 128/57 L 10/04/19 07:35 Blood Pressure Mean 74 10/03/19 15:01 Blood Pressure Position Sitting 10/03/19 11:38 Pulse Oximetry 95 10/04/19 07:35 Oxygen Delivery Method Room Air 10/04/19 07:35 Oxygen Flow Rate 0 10/04/19 07:35 Pain Level 0 10/04/19 02:38 Intake & Output 10/03/19 10/03/19 10/04/19 11:59 23:59 11:59 Intake Total 720 / 720 Output Total 350 / 350 Balance 720 / 720 -350 / -350 Weight 63.6 kg 63.6 kg Intake: Oral 720 / 720 Output: Urine 350 / 350 Other: Urine Color Yellow Yellow Urine Appearance Clear Urine Odor None None Comment took hat out of toilet, unable to ascertain volume. Voiding Methods Toilet Laboratory Results WBC 6.67 k/cumm (4.4-10.8) 10/04/19 06:22 RBC 4.27 m/cumm (4.00-5.20) 10/04/19 06:22 Hgb 12.2 g/dL (12.0-15.5) 10/04/19 06:22 Hct 38.5 % (36.0-46.0) 10/04/19 06:22 MCV 90.2 fL (80-95) 10/04/19 06:22 MCH 28.6 pg (27.0-33.0) 10/04/19 06:22 MCHC 31.7 g/dL (32.0-36.0) L 10/04/19 06:22 RDW 13.8 % (11.7-14.6) 10/04/19 06:22 Plt Count 203 x1000/uL (130-400) 10/04/19 06:22 MPV 10.6 fL (8.0-11.0) 10/04/19 06:22 Immature Gran % 0.1 10/04/19 06:22 Neutrophils % 44.0 10/04/19 06:22 Lymphocytes % 41.8 10/04/19 06:22 Monocytes % 10.2 10/04/19 06:22 Eosinophils % 3.3 10/04/19 06:22 Basophils % 0.6 10/04/19 06:22 Absolute Neutrophils 2.93 k/cumm (1.2-6.7) 10/04/19 06:22 Absolute Lymphocytes 2.79 k/cumm (1.2-3.4) 10/04/19 06:22 Absolute Monocytes 0.68 k/cumm (0.11-0.7) 10/04/19 06:22 Absolute Eosinophils 0.22 k/cumm (0.0-0.7) 10/04/19 06:22 Absolute Basophils 0.04 k/cumm (0.0-0.2) 10/04/19 06:22 Sodium 143 mmol/L (136-145) 10/04/19 06:22 Potassium 3.1 mmol/L (3.5-5.1) L 10/04/19 06:22 Chloride 104 mmol/L (98-107) 10/04/19 06:22 Carbon Dioxide 31.7 mmol/L (21.0-32.0) 10/04/19 06:22 Anion Gap 7.3 mmol/L (3-11) 10/04/19 06:22 BUN 18 mg/dL (7-18) 10/04/19 06:22 Creatinine 0.84 mg/dL (0.55-1.02) 10/04/19 06:22 Estimated GFR/1.73 m2 >= 60.00 (mL/min/1.73m2) 10/04/19 06:22 Glucose 104 mg/dL (74-106) 10/04/19 06:22 Calcium 9.3 mg/dL (8.5-10.1) 10/04/19 06:22 Magnesium 2.0 mg/dL (1.8-2.4) 10/03/19 12:59 Total Bilirubin 0.5 mg/dL (0.2-1.0) 10/03/19 12:59 AST 12 U/L (15-37) L 10/03/19 12:59 ALT 13 U/L (14-59) L 10/03/19 12:59 Alkaline Phosphatase 52 U/L (46-116) 10/03/19 12:59 Troponin I < 0.05 ng/Ml (<0.06) 10/03/19 12:59 Total Protein 6.9 g/dL (6.4-8.2) 10/03/19 12:59 Albumin 3.6 g/dL (3.4-5.0) 10/03/19 12:59 Triglycerides 195 mg/dL (<150) 10/04/19 06:22 Total Cholesterol 212 mg/dL (<200) 10/04/19 06:22 LDL Cholesterol, Calc 131 mg/dL 10/04/19 06:22 HDL Cholesterol 42 mg/dL (40-60) 10/04/19 06:22 TSH 1.43 uIU/mL (0.36-3.74) 10/03/19 12:59 Urine Color Yellow (Yellow) 10/03/19 14:05 Urine Clarity Clear (Clear) 10/03/19 14:05 Urine pH 7.0 (5-8) 10/03/19 14:05 Ur Specific [place] 1.015 (1.005-1.025) 10/03/19 14:05 Urine Protein Negative mg/dL (Negative) 10/03/19 14:05 Urine Ketones Negative mg/dL (Negative) 10/03/19 14:05 Urine Blood Trace-intact (Negative) H 10/03/19 14:05 Urine Nitrite Negative (Negative) 10/03/19 14:05 Urine Bilirubin Negative (Negative) 10/03/19 14:05 Urine Urobilinogen 0.2 EU/dL (Up TO 0.2) 10/03/19 14:05 Ur Leukocyte Esterase Negative (Negative) 10/03/19 14:05 Urine RBC 0-2 HPF (0-2) 10/03/19 14:05 Urine WBC 0-2 HPF (0-5) 10/03/19 14:05 Ur Epithelial Cells Rare HPF (Negative) 10/03/19 14:05 Urine Crystals Negative HPF (Negative) 10/03/19 14:05 Urine Bacteria Rare HPF (Negative) 10/03/19 14:05 Urine Casts Negative LPF (Negative) 10/03/19 14:05 Urine Mucus Trace (Negative) 10/03/19 14:05 Ur Culture Indicated? No 10/03/19 14:05 Urine Glucose Negative mg/dL (Negative) 10/03/19 14:05
[2019-10-04] MEDS: Clopidogrel 300 MG TAB PO (11:39)
--- NOTE | 2019-10-04 12:23 | W.NUTCONSULT ---
Date of service: 10/04/19 Time of Service: 12:23 Nutritional Consult ASSESSMENT: 74 year old female admitted in ER with Left sided facial droop s/p stroke. PMH: dysphagia from GERD, HTN, cog impairment. Following and tolerating Regular Diet at this time and meeting nutrient/fluid needs. BMI indicates overweight status. Not considered at nutritiona risk at this time. MONITORING AND EVALUATION: will monitor po intake and weight trends and intervene as warranted. Time Spent in Nutritional Counseling and Treatment: 0 time spent face to face
--- NOTE | 2019-10-04 12:25 | DI.US_ITS ---
APPROVED REPORT EXAM: Comprehensive 2D, Doppler, and color-flow Echocardiogram Patient Location: In-Patient Armhole Presser: Bernarda Siddiqui RDCS (AE) Rhythm: Bradycardia Indications: CVA possibly cardioembolic Conclusion Normal LV size and wall motion EF is 55-60% Moderately dilated left atrium Mild aortic valve sclerosis with mild to moderate oertic regurgitation Moderate to severe mitral and tricuspid regurgitation Wall motion Left Ventricle The left ventricle is normal size. The left ventricular systolic function is normal. There is normal left ventricular wall thickness. Regional wall motion is normal. elevated filling pressures. LVEF is estimated to be 55-60%. Right Ventricle The right ventricle is normal size. Right ventricular systolic function is grossly normal. Atria Left atrium is moderately dilated. The right atrium size is normal. Aortic Valve Aortic valve is trileaflet. Mild aortic valve sclerosis. There is sclerosis without stenosis. Mild to moderate aortic regurgitation. 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 mitral annular calcification. Mode rate to severe mitral regurgitation directed eccentrically posterior Tricuspid Valve The tricuspid valve leaflets are thickened , but open well. Moderate to severe tricuspid regurgitatio n. Pulmonic Valve Pulmonic valve is grossly normal in structure. Moderate pulmonic regurgitation. Great Vessels Aortic root is normal in size. IVC is normal in size and collapses >50% with inspiration. Pericardium No pericardial effusion. 2D Dimensions IVSd 1.00 cm F: 0.6-1.0 LV EDV A2C 54.70 mL PWd 0.90 cm F: 0.6 - 1.0 LV EDV A4C 72.70 mL LVDd 4.70 cm F: 3.8 - 5.2 LA Volume Index A2C 34.89 mL/m2 LVDs 2.90 cm F: 2.2 - 3.5 LA Volume Index A4C 59.61 mL/m2 Aortic Root 2.75 cm F: 2.7 - 3.3 LA Volume Index Biplane 46.09 mL/m2 RA Area A4C 15.89 cm2 LA Area A4C 26.35 cm2 LVOT 1.90 cm (M/F) 1.5-2.5 LA Area A2C 19.95 cm2 Ascending Aorta 2.69 cm F: 2.3 - 3.1 EF AP4 68.09 % LVEF (Teich) 68.04 % EF AP2 53.38 % LVEF (Mendoza's) 56.63 % F: 54 - 74 EF BP 56.63 % LV Volume 51.24 mL F: 46 - 106 LV Volume Index 31.62 mL/m2 F: 29 - 61 FS 37.90 % LV Diastology E/A Ratio 2.2 MED E' 0.06 (>0.07 m/s) LV E/e MED 15.95 (<14) LAT E' 0.08 (>0.1 m/s) LV E/e LAT 13.25 (<14) Pulm Vein s 0.43 m/s PV S/D Ratio 0.40 Pulm Vein d 1.08 m/s Pulm Vein a 0.27 m/s Aortic Valve LVOT Area 2.88 cm2 LVOT Vmax 0.91 m/s LVOT Mean Bj. 0.72 m/s LVOT Peak Gr. 3.3 mmHg AoV Area Vmax 0.00 m/s LVOT Mean Gr. 2.2 mmHg AoV Area/ BSA (Vmax) 0.90 cm2/m2 LVOT VTI 0.233 m GINA Mean Bj. 0.00 m/s AoV Vmax 1.78 (0.5-1.3 m/s) GINA Mean Bj. Index 1.06 cm2/m2 AoV Mean Bj. 1.20 m/s AoV Peak Grad 12.7 mmHg AI PHT 455.65 msec AoV Mean Grad 6.3 (<5 mmHg) AoV VTI 0.433 (0.18-0.25 m) VTI Ratio 0.56 AV Regurg Decel. 1571.22 msec AoV Area VTI 1.67 (2.5-4.5 cm2) AoV Area/ BSA (VTI) 1.03 cm/m2 Mitral Valve MV E Max Bj. 1.01 (0.4-1.3 m/s) MV A Velocity 0.45 (0.4-1.3 m/s) E/A Ratio 2.16 Pulmonary Valve PV Peak Velocity 0.99 (0.5-1.5 m/s) AL End VMAX 122.22 cm/s Tricuspid Valve TR P. Velocity 3.03 m/s TV Regurg Vmax 3.03 m/s RAP Estimate 3.00 mmHg RVSP 39.75 mmHg TR P. Gradient 36.75 mmHg
[2019-10-04] MEDS: Normal Saline Flush 10 ML SYR IVP (14:01)
--- NOTE | 2019-10-04 15:50 | CMPROGNOTE_ITS ---
Care Management Progress Note Marjorie was preparing for discharge when CM met with her. CM reviewed referrals for discharge including orders for PT through [facility]: Zoey Allred, and [facility]: Robyn Cadet. Marjorie reported that she did not require a FWW at this time, but PT encouraged a safety eval for her home and ongoing PT due to having 13 steps to enter her home. CM faxed referral to [facility] and will fax orders when available.
--- NOTE | 2019-10-04 16:19 | CHAPLAIN ---
Marjorie, was sitting up in a chair and said she is from [place], originally from [place], and expects to be going home later today. She's waiting to call her to pick her up. Marjorie was pleasant and easily engaged in a conversation.
--- NOTE | 2019-10-04 17:29 | DSE_ITS ---
Date of service: 10/04/19 Time of Service: 17:30 DS: Diagnosis Discharge Diagnosis (1) Cerebrovascular accident: Status: Chronic Asessment and Plan: Right temporal lobe infarct, 2 x 8 mm. No neurologic sequelae. Will be on Plavix x1 month with aspirin, then aspirin alone. Started on statin therapy. (2) Bradycardia: Status: Acute Asessment and Plan: Bradycardic down to the 40s. She was not symptomatic with this. We held her atenolol and discontinued atenolol at discharge. She will be on a 30-day event recorder. (3) Hypertension: Status: Chronic Asessment and Plan: Continue on chlorthalidone. (4) GERD (gastroesophageal reflux disease): Status: None Asessment and Plan: Continue present meds. Discharge Plan Disposition Patient Disposition: HOME Condition: Good Discharge Details Chief Complaint: CVA/TIA Clinical Impression: TIA (transient ischemic attack), Bradycardia Reason For Visit: Right temporal lobe infarct Admit Date/Time: 10/03/19 14:20 Admit Provider: Kareen Pedro Attending Provider: Kareen Pedro Primary Care Provider: Cristiane Rodriguez ED Provider: Iker Muñiz Hospital Course Hospital Course: This is a 74-year-old woman who presented with sudden onset of left facial droop at 9:30 AM on the day of admission. She describes having difficulty with ambulation and balance. She said she could not hang onto her cell phone with her right hand. By the time her daughter got to her side she thought most of the deficits had resolved. In the emergency room she was bradycardic in the 40s, troponin was negative, head CT normal, chest x-ray cardiomegaly. She had no focal neurologic deficits. She was admitted to [facility] on telemetry. Patient displayed no further signs of a stroke. She underwent MRI of the head MRA of the head and neck. She was found to have a 2 x 8 mm infarct in the temporal lobe on the right. Dr. Hannah Daley was consulted by phone. She was able to review the films. She recommended Plavix 300 mg x 1 followed by Plavix 75 mg daily for 1 month. Continue aspirin therapy. She started on a statin. She has an echocardiogram result pending. She is discharged with a 30- day event monitor. Further follow-up as an outpatient with Dr. Daley. Home Meds and New Rx's Prescriptions: New clopidogrel [Plavix] 75 mg Tablet 75 mg PO DAILY Qty: 30 RF: 0 pravastatin 20 mg Tablet 40 mg PO QPM Qty: 60 RF: 3 potassium chloride 20 mEq tablet extended release 20 meq PO DAILY Qty: 30 RF: 0 Continued pantoprazole 40 mg tablet,delayed release (DR/EC) 40 mg PO QAM RF: 0 cyanocobalamin (vitamin B-12) 1,000 mcg capsule 1,000 mcg PO DAILY RF: 0 ascorbic acid (vitamin C) 1,000 mg tablet 1 gm PO DAILY RF: 0 calcium carbonate [Calcium 600] 600 mg calcium (1,500 mg) tablet 600 mg PO TID RF: 0 aspirin [Aspir-81] 81 MG tablet,delayed release (DR/EC) 81 mg PO DAILY RF: 0 Mina-Citrate 1 EACH tablet 1 ea PO DAILY RF: 0 citalopram [Celexa] 40 MG tablet 40 mg PO DAILY RF: 0 sertraline 100 mg Tablet 100 mg PO DAILY RF: 0 chlorthalidone 50 mg Tablet 50 mg PO DAILY RF: 0 famotidine 20 mg Tablet 40 mg PO DAILY RF: 0 PreserVision AREDS [id number] flix-xu-mebr Tablet 1 tab PO DAILY RF: 0 Tumeric 1,000 mg PO DAILY RF: 0 Discontinued atenolol 50 MG tablet 50 mg PO DAILY RF: 0 Discharge Instructions Instructions: Right Hemispheric Stroke (DC), Effects of a Stroke (DC) Stand Alone Forms: Nursing Discharge Form Activity:: Activity as Tolerated Equipment/Supplies:: No Equipment Needed Diet:: As Tolerated Discharge Orders Discharge Orders: Discharge Order (Routine); Ordered 10/04/19 Ordered By: Kaden Silva Discharge Data Discharge Date/Time-TO BE ENTERED AT DEPARTURE: 10/04/19 17:34 DS: Summary Status at Discharge Functional status at discharge: independent ambulation Overall status at discharge: patient is back to baseline Mental Status: mental status grossly normal Speech and Movement: speech and movement normal Mood: congruent mood Affect: normal affect Time Spent with Patient providing and/or coordinating discharge services: Greater than 30 minutes Exam Narrative Exam Narrative: On exam she is sitting up in the chair in no apparent distress. She showed no facial asymmetry. Her speech was clear and coherent. She can move upper and lower extremities without apparent decrement of function. Manual dexterity appeared to be good. Psych Mental Status: mental status grossly normal Speech and Movement: speech and movement normal Mood: congruent mood Affect: normal affect DS: Data Vitals/I&O Vitals and I&O: Vital Signs Temperature 36.4 C L 10/04/19 15:40 Temperature Source Temporal Artery Scan 10/04/19 15:40 Pulse 54 L 10/04/19 16:57 Pulse Rhythm Regular 10/04/19 08:42 Pulse 49 L 10/03/19 15:01 Respiratory Rate 17 10/04/19 15:40 Respiratory Effort Non-Labored 10/04/19 08:42 Respiratory Depth Normal 10/04/19 08:42 Respiratory Pattern Normal 10/04/19 08:42 Blood Pressure 132/59 L 10/04/19 15:40 Blood Pressure Mean 74 10/03/19 15:01 Blood Pressure Position Sitting 10/03/19 11:38 Pulse Oximetry 96 10/04/19 15:40 Oxygen Delivery Method Room Air 10/04/19 15:40 Oxygen Flow Rate 0 10/04/19 15:40 Pain Level 0 10/04/19 15:40 Intake & Output 10/03/19 10/04/19 10/04/19 23:59 11:59 23:59 Intake Total 720 / 720 10 Output Total 350 / 350 Balance 720 / 720 -350 / -340 10 / -340 Weight 63.6 kg Intake: IV Oral 720 / 720 Output: Urine 350 / 350 Other: Urine Color Yellow Yellow Urine Appearance Clear Urine Odor None None Comment took hat out of toilet, unable to ascertain volume. pt voiding independently in the toilet Voiding Methods Toilet Data Completed and Pending Labs on day of discharge: Labs from last 24 hours 10/04/19 10/04/19 06:22 06:22 WBC 6.67 RBC 4.27 Hgb 12.2 Hct 38.5 MCV 90.2 MCH 28.6 MCHC 31.7 L RDW 13.8 Plt Count 203 MPV 10.6 Immature Gran % 0.1 Neutrophils % 44.0 Lymphocytes % 41.8 Monocytes % 10.2 Eosinophils % 3.3 Basophils % 0.6 Absolute Neutrophils 2.93 Absolute Lymphocytes 2.79 Absolute Monocytes 0.68 Absolute Eosinophils 0.22 Absolute Basophils 0.04 Sodium 143 Potassium 3.1 L Chloride 104 Carbon Dioxide 31.7 Anion Gap 7.3 BUN 18 Creatinine 0.84 Estimated GFR/1.73 m2 >= 60.00 Glucose 104 Calcium 9.3 Triglycerides 195 Total Cholesterol 212 LDL Cholesterol, Calc 131 HDL Cholesterol 42 EXAM: MR BRAIN WO CLINICAL HISTORY: tia vs stroke,cognitive impairment, r41.3 TECHNIQUE: Multiplanar multisequence MRI was performed. COMPARISON: MR ANGIO BRAIN WO from 10/03/2019 CT HEAD - STROKE PROTOCOL from 10/03/2019 MR ANGIO NECK WO from 10/03/2019 FINDINGS: MR examination of the brain was performed according to the usual protocol. Ventricular system is normal in appearance. The orbital and temporal bone structures appear intact. No significant signal abnormality identified on FLAIR images, however there is a small focal area of high signal seen in the temporal lobe cortex of the high sylvian fissure. This corresponds to a focus of ADC map decreased signal. The findings are suggestive of a small focal cortical infarction. Susceptibility weighted images show abnormal signal at this site as well, presumably representing microhemorrhage. IMPRESSION: Findings suggesting tiny cortical infarction of temporal lobe medial cortex in the high sylvian fissure on the right. Ordered By: Kareen Pedro M.D. CC: EXAM: MR ANGIO BRAIN WO CLINICAL HISTORY: tia. TECHNIQUE: Multiplanar multisequence MRI was performed. COMPARISON: No exams were available for comparison FINDINGS: MR angiography the [id number]-[id number]-[id number] region was performed according to protocol utilizing 2D and 3D imaging. The vertebral and basilar arteries are unremarkable with no evidence of aneurysm stenosis or dissection. Internal carotid arteries are unremarkable bilaterally with no evidence of aneurysm stenosis or dissection. Middle cerebral anterior cerebral and rails developer ior cerebral arteries are unremarkable in appearance with no evidence of aneurysm dissection or stenosis. The right anterior cerebral artery is supplied across anterior communicating artery. IMPRESSION: Negative MR angiography [id number] region [facility] Medical History Anxiety (Chronic) Depression (Chronic) GERD (gastroesophageal reflux disease) Heart burn Hypertension (Chronic) Surgical History Bladder Surgery Cholecystectomy EGD - MAC (07/12/17) pubovaginal sling Vaginal hysterectomy Family History Mother Colon cancer Social History Smoking/Tobacco Use Status: Former Tobacco Use Drug use: Never
--- NOTE | 2019-10-07 14:24 | PDOC.HHF2F ---
Home Health Certification Home Health Certification: 1. Encounter Date and Reason I certify that PARVEEN CEDENO was seen by Kaden Silva on 10/07/19 and that I had a [id number] encounter with this patient that meets the physician face to face encounter requirements. 2. Clinical Findings Supporting Skilled Need and Homebound Status I certify that home health services are medically necessary, include either intermittent mcfp and/or physical/speech therapy, and that this patient is homebound in that absences from the home require considerable and taxing effort and are infrequent or of short duration, or are attributable to the need to receive medical care. [X] (a) Attached documentation from encounter provides clinical findings supporting skilled need and homebound status (including what assistance patient requires to leave the home). The encounter with the patient was in whole, or in part, for the following medical condition, which is the primary reason for home health care: Right temporal lobe infarct Care Home: Started on new medication, Plavix, in addition to aspirin therapy. Monitor for signs and symptoms of bleeding. Physical Therapy: Right-sided CVA. Symptoms included clumsiness and difficulty walking which have improved. Continue to monitor for gait instability. Speech Therapy: Homebound: Patient requires assistance to leave the home. 3. Certification and Authentication I certify that I composed the above information based on my clinical judgement relating to this patient's medical condition and, if applicable, clinical findings communicated to me by the NPP or inpatient physician who performed the Home Health Referral. All further orders will be obtained through Dr. Rodriguez (Community Based Physician - PCP)
--- NOTE | 2019-11-05 08:17 | W.CARDEVENT ---
Date of service: 11/05/19 Time of Service: 08:17 Cardiac Event Recorder Cardiac Event Note: There is a 2-day Holter monitor ordered for the indication of chest twinges no this is a 1 month cardiac event recorder ordered for the indication of TIA. ?The patient was in normal sinus rhythm for 88% of the recording. ?The patient had multiple episodes of atrial fibrillation as well as atrial flutter. Maximal heart rate while in atrial fibrillation was 160. ?There was one episode of supraventricular tachycardia. ?There were rare (less than 1%) single ventricular ectopic beats. ?There were no episodes of ventricular tachycardia, pauses greater than 3 seconds or evidence of high degree heart block. ?Patient triggered events were associated with sinus rhythm and sinus bradycardia.
== END 2019-10-04 17:34 | disposition home or self-care (01) ==
LOC: ER 15:21 → MS 16:29
PROVIDERS: Admitting Provider Internal Medicine; Emergency Provider Physician Assistant; PCP Family Medicine; Visit Provider Family Medicine
DX: I63.89 Other cerebral infarction (principal); R29.810 Facial weakness; G81.94 Hemiplegia, unspecified affecting left nondominant side; R00.1 Bradycardia, unspecified; I08.3 Combined rheumatic disorders of mitral, aortic and tricuspid valves; F41.8 Other specified anxiety disorders; I10 Essential (primary) hypertension; Z23 Encounter for immunization
CPT/HCPCS: 36415; 70544; 70547; 80048; 80053; 80061; 93005; 93270; 93306; 97162; 99221; 99239; 99285; J1650; NC; 70450; 70551; 71046; 81003; 81015; 83735; 84443; 84484; 85025; 93010; 99217; 99218; G0378

== ENCOUNTER 2019-11-05 08:17 | Outpatient (CLI) | payer OTHER, SELFPAY | END 2019-11-05 08:37 | PROVIDERS: PCP Family Medicine; Referring Provider Family Medicine; Visit Provider Internal Medicine Cardiovascular Disease | DX: I48.91 Unspecified atrial fibrillation (principal) | CPT/HCPCS: 93228 ==

== ENCOUNTER 2019-11-06 10:30 | Emergency (ER) | payer OTHER, SELFPAY ==
[2019-11-06] VITALS (30 sets, daily range): BP systolic 106–143; BP diastolic 44–96; PULSE 56–99; RESP 11–30; TEMP 37.1; O2SAT 81–100
--- NOTE | 2019-11-06 10:47 | W.ED.GENAD ---
Discharge Plan Disposition Patient Disposition: HOME Condition: Stable Discharge Details Chief Complaint: Chest Pain Clinical Impression: Numbness, Thyroid nodule, CVA (cerebral vascular accident), Hypokalemia, Dyspnea Primary Care Provider: Cristiane Rodriguez ED Provider: Bhavna Uribe Home Meds and New Rx's Prescriptions: New Xarelto 20 mg tablet 20 mg PO QPM Qty: 6 RF: 0 Continued pantoprazole 40 mg tablet,delayed release (DR/EC) 40 mg PO QAM RF: 0 cyanocobalamin (vitamin B-12) 1,000 mcg capsule 1,000 mcg PO DAILY RF: 0 ascorbic acid (vitamin C) 1,000 mg tablet 1 gm PO DAILY RF: 0 calcium carbonate [Calcium 600] 600 mg calcium (1,500 mg) tablet 600 mg PO DAILY RF: 0 aspirin [Aspir-81] 81 MG tablet,delayed release (DR/EC) 81 mg PO DAILY RF: 0 ferrous sulfate [Feosol] 325 mg (65 mg iron) tablet 650 mg PO DAILY RF: 0 nitroglycerin [Nitrostat] 0.4 mg tablet, sublingual 0.4 mg SL Q5M PRNRF: 0 sertraline 100 mg Tablet 100 mg PO DAILY RF: 0 chlorthalidone 50 mg Tablet 50 mg PO DAILY RF: 0 PreserVision AREDS [id number] [id number]-[id number] Tablet 1 tab PO DAILY RF: 0 pravastatin 20 mg Tablet 40 mg PO QPM Qty: 60 RF: 3 Discontinued clopidogrel [Plavix] 75 mg Tablet 75 mg PO DAILY Qty: 30 RF: 0 No Action potassium chloride 20 mEq tablet extended release 20 meq PO DAILY RF: 0 turmeric 400 mg capsule 400 mg PO DAILY RF: 0 atenolol 50 mg tablet 50 mg PO DAILY Qty: 90 RF: 5 famotidine 20 mg tablet 20 mg PO DAILY RF: 0 Discharge Instructions Instructions: Rivaroxaban (By mouth), Hypokalemia (ED), Thyroid Nodules (ED), Paresthesia (ED), Dyspnea (ED), Stroke (GEN) Additional Instructions: Please return immediately to the emergency department if you develop any new or worsening symptoms, if your condition does not improve as expected, or if you become otherwise concerned. It is extremely important that you call soon as possible to make an appointment to be seen in follow-up for this visit by your primary care doctor, your neurologist, and a filament maker. Referrals: Cristiane Rodriguez MD [Primary Care Provider] - Winston Rajput MD [MD CONSULTING PHYSICIAN] - Hannah Daley MD [ [facility] STAFF PHYSICIAN] - Discharge Data Discharge Date/Time-TO BE ENTERED AT DEPARTURE: 11/06/19 16:26 Medical Decision Making Marjorie Bird is a 74 y/o woman with history of hypertension, GERD, CVA 10/04/2019 who presented to the emergency department with sensation of heart racing, left hand tingling, shortness of breath/chest tightness, and vertigo that began at 9: 40 this morning. On exam patient appears anxious but not in pain. There is no respiratory distress. Lungs are clear to auscultation bilaterally. No posterior calf tenderness or lower extremity edema. Patient reporting sensation of heart fluttering/racing with sinus rhythm 70s-80s on the monitor, intermittent episodes of ectopy. Concern for CVA, PE, ACS, metabolic/lyte disturbance, other. I discussed patient presentation with Dr. Daley, who previously had consulted on patient in September 2019. Dr. Daley recommended MRI brain without contrast, if negative, no indication for admission for neurologic pathology, recommends beginning Eliquis in case of negative MRI for A. fib/flutter diagnosed recently with Holter monitor. Plan for EKG, screening labs, MRI brain, telemetry. Will monitor and reassess. Labs reviewed, positive for hypokalemia, elevated d-dimer, elevated BNP. MRI brain shows possible new infarct. I discussed these new results with Dr. Daley, who reviewed images, states that she abnormality on MRI likely represents artifact, she recommends to continue with plan for anticoagulation. Patient with elevated d-dimer, plan for CTA chest. CT chest shows thyroid nodule, no acute emergent process. Patient reports feeling much better on reassessment. She does not feel anxious any longer, has no symptoms, feels very well and states that she is ready for discharge home. Patient no longer appears anxious. Unclear etiology of her earlier symptoms at this time, but given her report of no symptoms at this time, her diagnostic results, and her benign exam, plan for discharge home with outpatient follow-up at this time. I discussed patient presentation results with patient's PCP Dr. Rosas, who was very familiar with patient and has plans for patient to be anticoagulated for A. fib/flutter found on Holter monitor recently. Barrier to anticoagulation up to this point has been cost, Dr. Rosas requests that patient be prescribed 7 days of rivaroxaban from the emergency department, patient to sign up with [facility] pharmacy, where she will then receive her anticoagulation from. Dr. Rosas will follow as an outpatient. Potassium and rivaroxaban given, patient to continue taking her potassium at home as usual. I had a lengthy discussion with the patient and her family regarding this plan, which they are amenable to. I also discussed with patient and family abnormal lab results, possible new CVA on MRI, incidental finding of thyroid nodule, need for outpatient follow-up. I had a lengthy discussion with Patient regarding return to emergency department precautions, home care, and importance of outpatient follow-up. Pt verbalizes understanding of the plan and is amenable. Patient discharged to home with clear plan for outpatient follow-up. All questions were answered. Disposition decision was made weighing the risks and benefits of hospitalization versus outpatient treatment, the risk for further decompensation, and the patient's wishes. Medical Records Medical records reviewed: Yes I reviewed the patient's medical records. Imaging Data Radiologic Study: Attestation: I personally reviewed and interpreted this imaging study as follows: Radiologist's impression: EXAM: MR BRAIN WO CLINICAL HISTORY: vertigo, left hand weakness. TECHNIQUE: Multiplanar multisequence MRI was performed. COMPARISON: MR ANGIO BRAIN WO from 10/03/2019 MR BRAIN WO from 10/03/2019 MR ANGIO NECK WO from 10/03/2019 FINDINGS: There is a focus of restricted diffusion on the right at the junction between the temporal and occipital lobes lateral to the atria of the right lateral ventricle. This may represent a subacute/acute infarct. No acute intracranial hemorrhage is seen. The ventricles and sulci are consistent with the patient's age. There are scattered areas of T2 hyperintense signal in the brain consistent with small vessel ischemic disease. There is a flow void in the [id number]. There is no acute midline shift or mass effect. Visualized paranasal sinuses are clear. IMPRESSION: Small focus of restricted diffusion on the right lateral to the atria of the lateral ventricle. This may represent a subacute/acute infarct. EXAM: CT CHEST PE CTA CLINICAL HISTORY: SOB, CHEST TIGHTNESS. TECHNIQUE: Imaging Protocol: Axial CT angiography was performed with multislice acquisition and multiplanar and/or 3D reconstructions. CONTRAST MATERIAL: Intravenous: Omnipaque 350 Contrast volume:61 mL COMPARISON: No exams were available for comparison FINDINGS: Pulmonary Arteries: No evidence of filling defect to suggest pulmonary emboli. Tracheobronchial tree: Patent where visualized. Mediastinum and Marnie: No dominant adenopathy or fluid collection. There is a 2 cm hypodense nodule posterior and to the right of the trachea at the level of the thyroid gland. This may represent a thyroid nodule. It does appear to exert a mass effect on the trachea. Pulmonary parenchyma: No consolidation or dominant measurable mass. No architectural distortion. Bilateral dependent atelectasis. Pleura: No effusion or pneumothorax. Heart: The heart is not dilated. Marked coronary artery calcification. No significant pericardial effusion. No evidence of right heart strain. Aorta: Atherosclerosis. No aneurysm or dissection. Upper abdomen: Large hiatal hernia. Bones: Degenerative changes in the spine. IMPRESSION: 1. No evidence of pulmonary embolus, thoracic aortic dissection or aneurysm. 2. 2 cm hypodense nodule, which appears to arise from the right thyroid gland and appears to have a mass effect on the trachea. Thyroid ultrasound should be considered for further evaluation. 3. Findings were discussed with the Emergency Department on the date of the examination. Lab Data Lab results reviewed: Yes I reviewed the patient's lab results. Labs: Laboratory Tests Range/Units 11/06/19 11/06/19 11/06/19 10:47 10:47 10:47 WBC (4.4-10.8) k/cumm 7.44 RBC (4.00-5.20) m/cumm 5.10 Hgb (12.0-15.5) g/dL 14.7 Hct (36.0-46.0) % 45.2 MCV (80-95) fL 88.6 MCH (27.0-33.0) pg 28.8 MCHC (32.0-36.0) g/dL 32.5 RDW (11.7-14.6) % 13.4 Plt Count (130-400) x1000/uL 261 MPV (8.0-11.0) fL 10.2 Immature Gran % % 0.1 Neutrophils % 50.3 Lymphocytes % 39.8 Monocytes % 7.8 Eosinophils % 1.5 Basophils % 0.5 Absolute Neutrophils (1.2-6.7) k/cumm 3.74 Absolute Lymphocytes (1.2-3.4) k/cumm 2.96 Absolute Monocytes (0.11-0.7) k/cumm 0.58 Absolute Eosinophils (0.0-0.7) k/cumm 0.11 Absolute Basophils (0.0-0.2) k/cumm 0.04 D-Dimer (<500) ng/mlFEU 786 H Sodium (136-145) mmol/L 143 Potassium (3.5-5.1) mmol/L 3.0 L Chloride (98-107) mmol/L 102 Carbon Dioxide (21.0-32.0) mmol/L 31.3 Anion Gap (3-11) mmol/L 9.7 BUN (7-18) mg/dL 15 Creatinine (0.55-1.02) mg/dL 0.92 Estimated GFR/1.73 m2 (mL/min/1.73m2) 59.51 Glucose (74-106) mg/dL 100 Calcium (8.5-10.1) mg/dL 9.3 Magnesium (1.8-2.4) mg/dL 1.8 Total Bilirubin (0.2-1.0) mg/dL 0.6 AST (15-37) U/L 19 ALT (14-59) U/L 17 Alkaline Phosphatase (46-116) U/L 69 Troponin I (<0.06) ng/Ml < 0.05 NT-Pro-B Natriuret Pep (<300) pg/mL 1965 H Total Protein (6.4-8.2) g/dL 7.7 Albumin (3.4-5.0) g/dL 4.0 TSH (0.36-3.74) uIU/mL Range/Units 11/06/19 11/06/19 10:47 14:20 WBC (4.4-10.8) k/cumm RBC (4.00-5.20) m/cumm Hgb (12.0-15.5) g/dL Hct (36.0-46.0) % MCV (80-95) fL MCH (27.0-33.0) pg MCHC (32.0-36.0) g/dL RDW (11.7-14.6) % Plt Count (130-400) x1000/uL MPV (8.0-11.0) fL Immature Gran % % Neutrophils % Lymphocytes % Monocytes % Eosinophils % Basophils % Absolute Neutrophils (1.2-6.7) k/cumm Absolute Lymphocytes (1.2-3.4) k/cumm Absolute Monocytes (0.11-0.7) k/cumm Absolute Eosinophils (0.0-0.7) k/cumm Absolute Basophils (0.0-0.2) k/cumm D-Dimer (<500) ng/mlFEU Sodium (136-145) mmol/L Potassium (3.5-5.1) mmol/L Chloride (98-107) mmol/L Carbon Dioxide (21.0-32.0) mmol/L Anion Gap (3-11) mmol/L BUN (7-18) mg/dL Creatinine (0.55-1.02) mg/dL Estimated GFR/1.73 m2 (mL/min/1.73m2) Glucose (74-106) mg/dL Calcium (8.5-10.1) mg/dL Magnesium (1.8-2.4) mg/dL Total Bilirubin (0.2-1.0) mg/dL AST (15-37) U/L ALT (14-59) U/L Alkaline Phosphatase (46-116) U/L Troponin I (<0.06) ng/Ml < 0.05 NT-Pro-B Natriuret Pep (<300) pg/mL Total Protein (6.4-8.2) g/dL Albumin (3.4-5.0) g/dL TSH (0.36-3.74) uIU/mL 3.07 ECG Data Attestation: I personally reviewed and interpreted this ECG (s) as follows: Interpretation: EKG shows sinus rhythm at 78, frequent PACs, normal axis, nonspecific ST changes, no STEMI, nondiagnostic EKG HPI General Mode of arrival: ambulatory. Date/Time Provider Initiated Documentation: 11/06/19 10:44. Limitations to Documentation: no limitations. Information obtained by: patient, family, RN notes reviewed and old records reviewed. HPI Narrative: Marjorie Bird is a 74-year-old woman with a history of GERD, hypertension, CVA presenting to the emergency department with palpitations. Per patient and record review, she was seen here in September with similar symptoms. In September patient presented with dysarthria, left hand weakness that had resolved also with palpitations, she was found to have tiny chronic infarct with small hemorrhagic conversion on MRI. Patient was discharged home in September with cardiac monitoring. She was found to have atrial flutter on cardiac monitor technician recently. Patient was discharged home from her CVA hospitalization on aspirin and Plavix. Patient reports that she stopped taking her Plavix 11/04 for dental procedure that she had yesterday, and did not take her aspirin yesterday for dental procedure. Patient is accompanied by her daughter who also provide the history: They report that this morning patient had a sensation that her heart was racing. She also noticed that her left hand was tingly. Patient reports that she has felt dizzy since onset of her symptoms, which began at approximately 9: 40. Patient describes a sensation of motion when she describes her dizziness, as opposed to a sensation of feeling as if she is going to faint. Patient reports that she has also had associated feeling of shortness of breath/chest tightness since onset of her symptoms. Per patient's daughter, patient has been intermittently having very mild similar symptoms intermittently over the past month since diagnosis of CVA, but this is worse today. Patient denies any recent illness, no fevers, cough, vomiting, rash. Patient reports intermittent diarrhea that is chronic and unchanged. She has been eating and drinking as usual. Related Data Home Medications Medication Instructions Recorded Confirmed aspirin [Aspir-81] 81 mg PO DAILY tab-cap 01/22/16 11/08/19 ascorbic acid (vitamin C) 1,000 mg 1 gm PO DAILY tab 12/18/18 11/08/19 tablet calcium carbonate 600 mg calcium 600 mg PO DAILY tab 12/18/18 11/08/19 (1,500 mg) tablet cyanocobalamin (vitamin B-12) 1,000 mcg PO DAILY 12/18/18 11/08/19 1,000 mcg capsule pantoprazole 40 mg tablet,delayed 40 mg PO QAM tab 12/18/18 11/08/19 release PreserVision AREDS 1 tab PO DAILY 10/03/19 11/08/19 chlorthalidone 50 mg PO DAILY 10/03/19 11/08/19 sertraline 100 mg PO DAILY 10/03/19 11/08/19 pravastatin 40 mg PO QPM #60 tab 10/04/19 11/08/19 ferrous sulfate 325 mg (65 mg 650 mg PO DAILY tab 11/05/19 11/08/19 iron) tablet nitroglycerin 0.4 mg sublingual 0.4 mg SL Q5M PRN 11/05/19 11/08/19 tablet rivaroxaban [Xarelto] 20 mg PO QPM #6 tab 11/06/19 11/08/19 atenolol 50 mg tablet 50 mg PO DAILY #90 tab 11/08/19 11/08/19 famotidine 20 mg tablet 20 mg PO DAILY tab 11/08/19 11/08/19 potassium chloride 20 mEq 20 meq PO DAILY tab 11/08/19 tablet,extended release turmeric 400 mg capsule 400 mg PO DAILY cap 11/08/19 11/08/19 Previous Rx's Medication Instructions Recorded pravastatin 40 mg PO QPM #60 tab 10/04/19 rivaroxaban [Xarelto] 20 mg PO QPM #6 tab 11/06/19 atenolol 50 mg tablet 50 mg PO DAILY #90 tab 11/08/19 Allergies Allergy/AdvReac Type Severity Reaction Status Date / Time Fish Containing Products Allergy Intermediate Verified 11/08/19 10:56 Penicillins Allergy Intermediate Verified 11/08/19 10:56 lactose AdvReac Intermediate Diarrhea Unverified 11/08/19 10:56 seafood Allergy Severe Uncoded 11/08/19 10:56 General Stated Complaint: Chest Pain KYLEE: 2 Review of Systems Narrative: Constitutional: denies fevers Eyes: denies eye pain ENT: denies ear pain, dental pain, sore throat Cardiovascular: denies chest pain, edema, reports chest tightness Respiratory: denies cough, reports shortness of breath GI: denies abdominal pain, vomiting, diarrhea : denies flank pain MSK: denies back pain, neck pain, arthralgias, myalgias Skin: denies rash Neuro: denies headaches, weakness, reports vertigo, paresthesias left hand [facility] Medical History Anemia (Chronic) Anxiety (Chronic) Aortic valve regurgitation (Acute) Depression (Chronic) GERD (gastroesophageal reflux disease) Heart burn History of dysthymic disorder (Acute) Hyperplastic colonic polyp (Acute) Hypertension (Chronic) Lactose intolerance (Acute) Memory impairment (Acute) Mitral valve regurgitation (Chronic) Pulmonary valve regurgitation (Acute) Restless leg syndrome (Acute) Social History Smoking/Tobacco Use Status: Former Tobacco Use Quit Date: 10/16/99 Tobacco: How many years used: 30 Drug use: Never What type of physical activity do you participate in: none Exam Narrative Exam Narrative: Constitutional: well and [id number], pleasant, conversing normally HENT: head atraumatic/normocephalic/normal inspection, mucous membranes moist, TMs normal bilaterally Eyes: conjunctiva normal, sclera normal, pupils 3mm b/l equal round reactive to light and accommodation, extraocular movements intact without nystagmus Neck: no stridor, normal ROM, trachea midline Chest: normal inspection Resp: normal work of breathing, LCTAB Cardio: normal rate, normal rhythm, no murmur appreciated GI: abdomen soft, non-tender, non-distended Back: normal inspection, no rash Skin: warm, dry, normal color, no rash Neuro: alert, not altered, cranial nerves II through XII intact, motor 5 out of 5 throughout, normal sensation throughout, slowed but otherwise normal [id number] bilaterally, normal [id number] bilaterally, normal tone, no pronator drift Ext: No lower extremity edema, no posterior calf tenderness to palpation Psych: Mildly anxious mood, normal affect, normal behavior Course Vital Signs Vital signs: Vital Signs Temperature 37.1 C 11/06/19 10:32 Pulse 78 11/06/19 10:32 Respiratory Rate 11/06/19 10:32 Pulse Oximetry 100 11/06/19 10:32 Temperature 37.1 C 11/06/19 10:32 Temperature Source Skin 11/06/19 10:32 Pulse 78 11/06/19 10:32 Respiratory Rate 20 11/06/19 10:32 Respiratory Effort 11/06/19 10:38 Respiratory Depth Normal 11/06/19 10:38 Respiratory Pattern Normal 11/06/19 10:38 Blood Pressure Position Supine 11/06/19 10:32 Pulse Oximetry 100 11/06/19 10:32 Oxygen Delivery Method Room Air 01/22/20 10:32 Oxygen Flow Rate 0 11/06/19 10:32 Pain Level 0 11/06/19 10:32 Comment 11/06/19 10:32
[2019-11-06 10:57] LABS: Abs Immature Grans 0.01 k/cumm (0.0-0.09); Absolute Basophil Count 0.04 k/cumm (0.0-0.2); Absolute Eosinophil Count 0.11 k/cumm (0.0-0.7); Absolute Lymphocyte Count 2.96 k/cumm (1.2-3.4); Absolute Monocyte Count 0.58 k/cumm (0.11-0.7); Absolute Neutrophil Count 3.74 k/cumm (1.2-6.7); Basophils % 0.5; Eosinophils % 1.5; HCT 45.2 % (36.0-46.0); HGB 14.7 g/dL (12.0-15.5); Immature Grans % 0.1 %; Lymphocytes % 39.8; Mean Corp. HGB Concentration 32.5 g/dL (32.0-36.0); Mean Corpuscular Hemoglobin 28.8 pg (27.0-33.0); Mean Corpuscular Volume 88.6 fL (80-95); Mean Platelet Volume 10.2 fL (8.0-11.0); Monocytes % 7.8; Neutrophils % 50.3; Platelet Count 261 x1000/uL (130-400); RBC Distribution Width 13.4 % (11.7-14.6); White Blood Cell Count 7.44 k/cumm (4.4-10.8)
--- NOTE | 2019-11-06 10:58 | DI.RAD_ITS ---
EXAM: XR PORTABLE CHEST AP INDICATION: SOB. COMPARISON: XR CHEST 2V PA LATERAL from 10/03/2019 TECHNIQUE: 2D digital imaging was performed. FINDINGS: The heart size is within normal limits. Pulmonary vasculature is within normal limits. There is aga in seen a large hiatal hernia. Lungs are clear. No pleural effusion or pneumothorax is present. Th ere is again seen a right convex scoliosis of the spine. IMPRESSION: No acute pulmonary process.
[2019-11-06 11:17] LABS: ALT 17 U/L (14-59); AST 19 U/L (15-37); Alkaline Phosphatase 69 U/L (46-116); Anion Gap 9.7 mmol/L (3-11); BUN 15 mg/dL (7-18); Bilirubin, Total 0.6 mg/dL (0.2-1.0); CO2 31.3 mmol/L (21.0-32.0); CREATININE 0.92 mg/dL (0.55-1.02); Calcium 9.3 mg/dL (8.5-10.1); Chloride 102 mmol/L (98-107); Estimated GFR 59.51 (mL/min/1.73m2); Glucose 100 mg/dL (74-106); Magnesium 1.8 mg/dL (1.8-2.4); NT-proBNP 1965 pg/mL (<300); Sodium 143 mmol/L (136-145); Total Protein 7.7 g/dL (6.4-8.2)
[2019-11-06 11:18] LABS: TSH (W/Ref FT4) 3.07 uIU/mL (0.36-3.74); Troponin I < 0.05 ng/Ml (<0.06)
[2019-11-06 11:29] LABS: D-Dimer 786 ng/mlFEU (<500)
--- NOTE | 2019-11-06 12:09 | DI.MRI_ITS ---
EXAM: MR BRAIN WO CLINICAL HISTORY: vertigo, left hand weakness. TECHNIQUE: Multiplanar multisequence MRI was performed. COMPARISON: MR ANGIO BRAIN WO from 10/03/2019 MR BRAIN WO from 10/03/2019 MR ANGIO NECK WO from 10/03/2019 FINDINGS: There is a focus of restricted diffusion on the right at the junction between the temporal and occipi kiel lobes lateral to the atria of the right lateral ventricle. This may represent a subacute/acute i nfarct. No acute intracranial hemorrhage is seen. The ventricles and sulci are consistent with the patient's age. There are scattered areas of T2 hyperintense signal in the brain consistent with smal l vessel ischemic disease. There is a flow void in the Rjujhc-xf-Lrffxi. There is no acute midline shift or mass effect. Visualized paranasal sinuses are clear. IMPRESSION: Small focus of restricted diffusion on the right lateral to the atria of the lateral ventricle. This may represent a subacute/acute infarct. Findings were discussed with the emergency department on the date of the examination.
--- NOTE | 2019-11-06 13:45 | DI.CT_ITS ---
EXAM: CT CHEST PE CTA CLINICAL HISTORY: SOB, CHEST TIGHTNESS. TECHNIQUE: Imaging Protocol: Axial CT angiography was performed with multislice acquisition and mul tiplanar and/or 3D reconstructions. CONTRAST MATERIAL: Intravenous: Omnipaque 350 Contrast volume:61 mL COMPARISON: No exams were available for comparison FINDINGS: Pulmonary Arteries: No evidence of filling defect to suggest pulmonary emboli. Tracheobronchial tree: Patent where visualized. Mediastinum and Marnie: No dominant adenopathy or fluid collection. There is a 2 cm hypodense nodule po sterior and to the right of the trachea at the level of the thyroid gland. This may represent a thyr oid nodule. It does appear to exert a mass effect on the trachea. Pulmonary parenchyma: No consolidation or dominant measurable mass. No architectural distortion. Bila teral dependent atelectasis. Pleura: No effusion or pneumothorax. Heart: The heart is not dilated. Marked coronary artery calcification. No significant pericardial ef fusion. No evidence of right heart strain. Aorta: Atherosclerosis. No aneurysm or dissection. Upper abdomen: Large hiatal hernia. Bones: Degenerative changes in the spine. IMPRESSION: 1. No evidence of pulmonary embolus, thoracic aortic dissection or aneurysm. 2. 2 cm hypodense nodule, which appears to arise from the right thyroid gland and appears to have a m ass effect on the trachea. Thyroid ultrasound should be considered for further evaluation. 3. Findings were discussed with the Emergency Department on the date of the examination. DATA REPOSITORY: All CT scans at this facility are submitted to the National Radiology Data Registry (NRDR) Dose Index Registry (DIR) with the [employer] (A[employer]). RADIATION OPTIMIZATION: All CT scans at this facility use at least one of these dose optimization te chniques: automated exposure control; mA and/or kV adjustment per patient size (includes targeted exa ms where dose is matched to clinical indication); or iterative reconstruction.
[2019-11-06] MEDS: Omnipaque 350 MG/ML 100 ML BTL 61 ML IJ (13:55)
[2019-11-06] MEDS: Normal Saline - Diluent 50 ML VIAL IV (13:57)
[2019-11-06 14:58] LABS: Troponin I < 0.05 ng/Ml (<0.06)
[2019-11-06] MEDS: Potassium Chloride 20 MEQ TABCR 40 MEQ PO (16:13)
[2019-11-06] MEDS: Rivaroxaban 10 MG TABLET 20 MG PO (16:14)
== END 2019-11-06 16:26 | disposition home or self-care (01) ==
PROVIDERS: Emergency Provider Student in an Organized Health Care Education/Training Program; PCP Family Medicine
DX: E04.1 Nontoxic single thyroid nodule (principal); R20.0 Anesthesia of skin; I63.9 Cerebral infarction, unspecified; E87.6 Hypokalemia; I10 Essential (primary) hypertension
CPT/HCPCS: 71275; 80053; 93005; 99285; 70551; 71045; 83735; 83880; 84443; 84484; 85025; 85379; 93010; J3490

== ENCOUNTER 2019-11-08 09:10 | Outpatient (CLI) | payer OTHER, SELFPAY | END 2019-11-08 09:30 | PROVIDERS: PCP Family Medicine; Visit Provider Internal Medicine Cardiovascular Disease | DX: I08.0 Rheumatic disorders of both mitral and aortic valves (principal); I48.0 Paroxysmal atrial fibrillation; I63.9 Cerebral infarction, unspecified; I10 Essential (primary) hypertension | CPT/HCPCS: 99205; 99215; 93005; 93010 ==

== ENCOUNTER → 2019-11-19 12:43 | Outpatient (BNVA) | payer OTHER, SELFPAY | PROVIDERS: PCP Family Medicine; Referring Provider Family Medicine; Visit Provider Psychiatry & Neurology Neurology | DX: I63.9 Cerebral infarction, unspecified (principal); I48.91 Unspecified atrial fibrillation; R19.5 Other fecal abnormalities | CPT/HCPCS: 99215 ==

== ENCOUNTER 2019-12-04 02:13 | Outpatient (CLI) | payer OTHER, SELFPAY ==
--- NOTE | 2019-12-04 14:59 | DI.MAMMO_ITS ---
EXAM: MG MAMMO DIAGNOSTIC UNI AND US BREAST LT COMPLETE CLINICAL HISTORY: ABNORMAL MAMMO R92.8, 6 MO FU. TECHNIQUE: Craniocaudal and mediolateral oblique Full Field Digital Mammography views of the left br east with Computer Aided Diagnosis followed by Tomosynthesis and left breast ultrasound. COMPARISON: Priors available for comparison. FINDINGS: Mammography/Tomosynthesis: Masses/Architectural Distortion: Stable 8 mm nodule in the lower inner quadrant of the left breast. Microcalcifictions: No suspicious pleomorphic-type are seen. Skin Thickening/Nipple Retraction: None. Left breast US: Echotexture: Normal appearance of the glandular tissue. Shadowing: No suspicious foci. Cyst: Stable 1.3 x 0.6 x 1.3 cm cyst at the 8 o'clock position of the left breast. Solid lesions: None seen. Ductal dilation: None. IMPRESSION: 1. No evidence of malignancy is noted. 2. Unless there is more urgent need, follow-up screening mammography is recommended, as per [employer] guidelines. BI-RADS Cat 2 - Benign Findings Breast Density - Category B - Scattered areas of fibroglandular density Findings were discussed with the patient on the date of the examination. A negative radiographic report should not delay biopsy if a dominant or clinically suspicious mass is present. Up to ten percent of cancers are not identified on mammography. A negative report may reinforce clinical impression. Adenosis and dense breasts may obscure an underlying neoplasm. False positive reports average 6 to 10%. Patient will receive a letter notifying them of these results.
== END 2019-12-04 02:33 ==
PROVIDERS: PCP Family Medicine; Visit Provider Family Medicine
DX: Z12.31 Encounter for screening mammogram for malignant neoplasm of breast (principal); R92.8 Other abnormal and inconclusive findings on diagnostic imaging of breast; N63.24 Unspecified lump in the left breast, lower inner quadrant; N60.02 Solitary cyst of left breast
CPT/HCPCS: 76642; 77061; 77065; G0279

== ENCOUNTER 2019-12-04 14:39 | Outpatient (REF) | payer OTHER, SELFPAY ==
[2019-12-04 20:27] LABS: HGB 11.9 g/dL (12.0-15.5); Mean Corp. HGB Concentration 31.3 g/dL (32.0-36.0); Mean Corpuscular Volume 92.7 fL (80-95); Mean Platelet Volume 11.4 fL (8.0-11.0); Platelet Count 214 x1000/uL (130-400); RBC Distribution Width 13.7 % (11.7-14.6); White Blood Cell Count 6.99 k/cumm (4.4-10.8)
== END 2019-12-04 14:59 ==
LOC: NCHCN 14:39
PROVIDERS: PCP Family Medicine; Visit Provider Family Medicine
DX: D64.9 Anemia, unspecified (principal)
CPT/HCPCS: 85027

== ENCOUNTER 2019-12-11 14:47 | Emergency (ER) | payer OTHER, SELFPAY ==
[2019-12-11 14:57] VITALS: BP 158/52; PULSE 48; RESP 16; TEMP 36.7; O2SAT 96
--- NOTE | 2019-12-11 14:58 | ED.GENADUL_ITS ---
Discharge Plan Disposition Patient Disposition: HOME Condition: Good Discharge Details Chief Complaint: Chest Pain Clinical Impression: Chest pressure, Hiatal hernia Primary Care Provider: Cristiane Rodriguez ED Provider: Norbert Quinn Home Meds and New Rx's Prescriptions: No Action pantoprazole 40 mg tablet,delayed release (DR/EC) 40 mg PO QAM RF: 0 cyanocobalamin (vitamin B-12) 1,000 mcg capsule 1,000 mcg PO DAILY RF: 0 ascorbic acid (vitamin C) 1,000 mg tablet 1 gm PO DAILY RF: 0 calcium carbonate [Calcium 600] 600 mg calcium (1,500 mg) tablet 600 mg PO DAILY RF: 0 potassium chloride 20 mEq tablet extended release 20 meq PO DAILY RF: 0 atenolol 50 mg tablet 50 mg PO DAILY Qty: 90 RF: 5 turmeric 400 mg capsule 1,000 mg PO DAILY RF: 0 aspirin [Aspir-81] 81 MG tablet,delayed release (DR/EC) 81 mg PO DAILY RF: 0 ferrous sulfate [Feosol] 325 mg (65 mg iron) tablet 650 mg PO DAILY RF: 0 nitroglycerin [Nitrostat] 0.4 mg tablet, sublingual 0.4 mg SL Q5M PRNRF: 0 sertraline 100 mg Tablet 100 mg PO DAILY RF: 0 chlorthalidone 50 mg Tablet 50 mg PO DAILY RF: 0 PreserVision AREDS [id number] Tablet 1 tab PO DAILY RF: 0 pravastatin 20 mg Tablet 40 mg PO QPM Qty: 60 RF: 3 famotidine 20 mg tablet 20 mg PO DAILY RF: 0 Xarelto 20 mg tablet 20 mg PO QPM Qty: 6 RF: 0 Discharge Instructions Instructions: Chest Pain (ED) Additional Instructions: At this time your symptoms appearing consistent with a heart abnormality, but if you have any return of your symptoms, it is important to return for reevaluation. Your hiatal hernia may certainly be causing a bit of your symptoms, I would recommend trying to switch to a more liquid-based diet for the next 1 to 2 weeks to see if this changes her symptomatology. If you notice any worsening of your symptoms, or any new symptoms such as vomiting, diarrhea, fever, chills, shortness of breath, chest pain, numbness, weakness, or fainting , please return immediately to the emergency department for reevaluation. Please follow up with your primary care provider as soon as possible for reassessment and reevaluation. As always, it was a pleasure participating in your medical care today. 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 fib on Holter monitor, currently on Xarelto, presents today for evaluation of chest pressure. The patient states that last night she had to put her dog down whom she has had for years. This was extremely challenging for her. Shortly thereafter the patient began to feel mild amount of chest pressure, which is slightly uncomfortable. It is in the left side of her chest. No radiation to the arms or neck. She denies any new shortness of breath, or exertional dyspnea. Symptoms are improved when the patient sits and clears her mind and begins to relax mentally. She denies any exertional component otherwise. She denies any associated numbness or tingling. She denies any tearing or ripping sensation in her chest. She denies any significant chest pain. She denies any other complaints at this time. Physical exam is notably unremarkable aside for small amount of reproducible left-sided chest wall tenderness which she states is the same pain and pressure that she is otherwise feeling. Vital signs are stable. Patient states explicitly that she feels her symptoms are secondary to anxiety from the of her dog, not related to her heart. She uses her anticoagulation as directed. Symptoms appearing consistent with dissection or PE. Anxiety is high on the differential especially with the patient's recent events, however due to her history of cardiac risk factors we will perform a cardiac work-up to evaluate for any significant abnormality. Bedside limited echo shows no evidence of pericardial effusion or hypokinesis. We will continue to monitor closely, give a trial of nitroglycerin reassess. 4:01 PM Patient's laboratory work-up has returned, troponin normal, EKG unchanged. Normal electrolytes, no significant abnormality in regards to renal function, lipase normal. Chest x-ray per radiology shows no significant abnormalities aside from notable hiatal hernia which is unchanged. The patient's symptoms alleviated completely on its own, she refused the nitroglycerin as she had no pain or discomfort. The patient states that she feels great and would like to go home. At this time I do feel that her signs and symptoms are inconsistent with ACS, especially with the longevity of the symptoms, and the relational component with the of her dog. Especially with the lack of abnormalities on cardiac evaluation. In addition to this I do feel that her hiatal hernia may certainly be a component of the cause of her pressure that she is feeling as it is fairly notable. We did discuss potential dietary changes. She has seen a surgeon in the past, and has elected to avoid surgery. I have extensively reviewed the treatment plan and discharge instructions with the patient and their family. I have addressed all patient concerns at this time. The patient and family was made aware of what symptoms to monitor for that would warrant a return to the emergency department. Discussed the plan with the patient and family, they demonstrate verbal understanding and agreement with our assessment and plan at this time. EKG 14: 57 Rate 48, intervals normal, sinus bradycardia, no significant ST elevations or de pressions, inverted T wave is present in V1. No evidence of STEMI. Prior EKG from 11/08/2019 demonstrates no evidence of acute change. No evidence of significant changes whatsoever. FINDINGS: A large hiatal hernia with an air-fluid level is seen. The cardiac silhouette is somewhat obscured. Heart appears mildly enlarged. Visualized portions of the lungs appear clear. Scoliosis and degenerative changes are noted in the spine. IMPRESSION: Large hiatal hernia. No acute abnormality. HPI General Date/Time Provider Initiated Documentation: 12/11/19 14:56 . 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 fib on Holter monitor, currently on Xarelto, presents today for evaluation of chest pressure. The patient states that last night she had to put her dog down whom she has had for years. This was extremely challenging for her. Shortly thereafter the patient began to feel mild amount of chest pressure, which is slightly uncomfortable. It is in the left side of her chest. No radiation to the arms or neck. She denies any new shortness of breath, or exertional dyspnea. Symptoms are improved when the patient sits and clears her mind and begins to relax mentally. She denies any exertional component otherwise. She denies any associated numbness or tingling. She denies any tearing or ripping sensation in her chest. She denies any significant chest pain. She denies any other complaints at this time. Related Data Home Medications Medication Instructions Recorded Confirmed aspirin [Aspir-81] 81 mg PO DAILY tab-cap 01/22/16 11/19/19 ascorbic acid (vitamin C) 1,000 mg 1 gm PO DAILY tab 12/18/18 11/19/19 tablet calcium carbonate 600 mg calcium 600 mg PO DAILY tab 12/18/18 11/19/19 (1,500 mg) tablet cyanocobalamin (vitamin B-12) 1,000 mcg PO DAILY 12/18/18 11/19/19 1,000 mcg capsule pantoprazole 40 mg tablet,delayed 40 mg PO QAM tab 12/18/18 11/19/19 release PreserVision AREDS 1 tab PO DAILY 10/03/19 11/19/19 chlorthalidone 50 mg PO DAILY 10/03/19 11/19/19 sertraline 100 mg PO DAILY 10/03/19 11/19/19 pravastatin 40 mg PO QPM #60 tab 10/04/19 11/19/19 ferrous sulfate 325 mg (65 mg 650 mg PO DAILY tab 11/05/19 11/19/19 iron) tablet nitroglycerin 0.4 mg sublingual 0.4 mg SL Q5M PRN 11/05/19 11/19/19 tablet rivaroxaban [Xarelto] 20 mg PO QPM #6 tab 11/06/19 11/19/19 atenolol 50 mg tablet 50 mg PO DAILY #90 tab 11/08/19 11/19/19 famotidine 20 mg tablet 20 mg PO DAILY tab 11/08/19 11/19/19 potassium chloride 20 mEq 20 meq PO DAILY tab 11/08/19 11/19/19 tablet,extended release turmeric 400 mg capsule 1,000 mg PO DAILY cap 11/19/19 11/19/19 Previous Rx's Medication Instructions Recorded pravastatin 40 mg PO QPM #60 tab 10/04/19 rivaroxaban [Xarelto] 20 mg PO QPM #6 tab 11/06/19 atenolol 50 mg tablet 50 mg PO DAILY #90 tab 11/08/19 Allergies Allergy/AdvReac Type Severity Reaction Status Date / Time Fish Containing Products Allergy Intermediate Verified 12/11/19 15:01 Penicillins Allergy Intermediate Verified 12/11/19 15:01 lactose AdvReac Intermediate Diarrhea Unverified 12/11/19 15:01 seafood Allergy Severe Uncoded 12/11/19 15:01 General KYLEE: 2 Review of Systems All systems reviewed & are unremarkable except as noted in HPI and below PFSH Social History (Updated 11/19/19 @ 12:56 by Lola Medrano LPN) Smoking/Tobacco Use Status: Former Tobacco Use Quit Date: 10/16/99 Tobacco: How many years used: 30 Alcohol Intake: current Alcohol Intake frequency: holidays/special occasions only Drug use: Never Household members: spouse Housing: house Number of Children: 4 What is your relationship status?: Panel score (0-1 are the most socially isolated patients): 1 What type of physical activity do you participate in: none Seatbelt use: always Do you feel safe at home: Yes Do you feel safe in your relationship?: Yes Exam Narrative Exam Narrative: 1.Const: Well-nourished, Well-developed, appearing stated age 2.Eyes: PERRL, no conjunctival injection, and symmetrical lids. 3.ENT: Atraumatic external nose and ears. Moist MM. Neck: Symmetric, trachea midline, No thyromegaly. 4.CVS: +S1/S2, No murmurs or gallops. Peripheral pulses 2+ and equal in all extremities. Brisk capillary refill in all extremities. Mild reproducibility of her chest pain is present with palpation of the left sternal border. 5.RESP: Unlabored respiratory effort. Clear to auscultation bilaterally. No wheezes rales or rhonchi 6.GI: Soft, Nontender/Nondistended, No hepatosplenomegaly. No guarding or rebound. 7.MSK: Normocephalic/Atraumatic, Extremities w/o deformity or ttp No cyanosis or clubbing, Normal movement of all extremities 8.Skin: Warm, Dry. No rashes or lesions. 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 Sensation grossly intact, no focal neurologic deficits. 10.Psych: (AAO) x3. Appropriate mood and affect
--- NOTE | 2019-12-11 15:00 | DI.RAD_ITS ---
EXAM: XR CHEST 2V PA LATERAL INDICATION: left sided chest pain. COMPARISON: CT CHEST PE CTA from 11/06/2019 XR PORTABLE CHEST AP from 11/06/2019 TECHNIQUE: 2D digital imaging was performed. FINDINGS: A large hiatal hernia with an air-fluid level is seen. The cardiac silhouette is somewhat obscured. Heart appears mildly enlarged. Visualized portions of the lungs appear clear. Scoliosis and degen erative changes are noted in the spine. IMPRESSION: Large hiatal hernia. No acute abnormality. DATA REPOSITORY: RADIATION DOSE DELIVERED:
[2019-12-11 15:33] LABS: Abs Immature Grans 0.01 k/cumm (0.0-0.09); Absolute Basophil Count 0.02 k/cumm (0.0-0.2); Absolute Eosinophil Count 0.14 k/cumm (0.0-0.7); Absolute Monocyte Count 0.53 k/cumm (0.11-0.7); Absolute Neutrophil Count 3.54 k/cumm (1.2-6.7); Basophils % 0.3; Eosinophils % 2.2; HCT 37.8 % (36.0-46.0); HGB 12.1 g/dL (12.0-15.5); Immature Grans % 0.2 %; Lymphocytes % 34.2; Mean Corpuscular Hemoglobin 28.9 pg (27.0-33.0); Mean Corpuscular Volume 90.4 fL (80-95); Mean Platelet Volume 10.6 fL (8.0-11.0); Monocytes % 8.2; Neutrophils % 54.9; Platelet Count 208 x1000/uL (130-400); RBC 4.18 m/cumm (4.00-5.20); RBC Distribution Width 13.5 % (11.7-14.6); White Blood Cell Count 6.44 k/cumm (4.4-10.8)
[2019-12-11 15:44] LABS: INR 1.1 (0.9-1.1); PTT Activated 25.1 sec (21.0-31.4); Prothrombin Time 10.9 sec (9.3-11.0)
[2019-12-11 15:46] LABS: ALT 15 U/L (14-59); AST 14 U/L (15-37); Albumin 3.8 g/dL (3.4-5.0); Alkaline Phosphatase 49 U/L (46-116); Anion Gap 7.6 mmol/L (3-11); BUN 20 mg/dL (7-18); Bilirubin, Total 0.4 mg/dL (0.2-1.0); CO2 30.4 mmol/L (21.0-32.0); CREATININE 1.14 mg/dL (0.55-1.02); Calcium 8.8 mg/dL (8.5-10.1); Chloride 105 mmol/L (98-107); Estimated GFR 46.47 (mL/min/1.73m2); Glucose 87 mg/dL (74-106); Lipase 80 U/L (73-393); Potassium 3.4 mmol/L (3.5-5.1); Sodium 143 mmol/L (136-145); Total Protein 6.9 g/dL (6.4-8.2)
[2019-12-11 15:47] LABS: Troponin I < 0.05 ng/Ml (<0.06)
[2019-12-11] MEDS: Acetaminophen 500 MG TAB 1000 MG PO (15:50)
== END 2019-12-11 16:20 | disposition home or self-care (01) ==
LOC: ER 16:42
PROVIDERS: Emergency Provider Student in an Organized Health Care Education/Training Program; PCP Family Medicine
DX: R07.89 Other chest pain (principal); K44.9 Diaphragmatic hernia without obstruction or gangrene; I10 Essential (primary) hypertension; K21.9 Gastro-esophageal reflux disease without esophagitis; I48.91 Unspecified atrial fibrillation; Z79.01 Long term (current) use of anticoagulants
CPT/HCPCS: 36415; 80053; 83690; 93005; 99285; 71046; 84484; 85025; 85610; 85730; 93010

== ENCOUNTER → 2020-02-11 13:39 | Outpatient (BNVA) | payer OTHER, SELFPAY | PROVIDERS: PCP Family Medicine; Referring Provider Family Medicine; Visit Provider Internal Medicine Cardiovascular Disease | DX: R69 Illness, unspecified (principal) ==

== ENCOUNTER 2020-03-11 14:02 | Emergency (ER) | payer OTHER, SELFPAY ==
[2020-03-11 14:10] VITALS: BP 127/81; PULSE 64; RESP 14; TEMP 37; O2SAT 95
--- NOTE | 2020-03-11 14:30 | DI.RAD_ITS ---
EXAM: XR CHEST 2V PA LATERAL CLINICAL HISTORY: ? sycope TECHNIQUE: 2D digital imaging was performed. COMPARISON: No exams were available for comparison FINDINGS: HEART: Enlarged, unchanged. Aorta is normal in diameter. PULMONARY VASCULATURE: Normal. LUNGS: Clear. PLEURAL SPACE: No pleural effusion or pneumothorax. BONE:Dextroscoliosis and degenerative changes.. OTHER FINDINGS:Large hiatal hernia with air-fluid level. IMPRESSION: No acute pulmonary findings. Large hiatal hernia. DATA REPOSITORY: RADIATION DOSE DELIVERED:
--- NOTE | 2020-03-11 14:41 | DI.CT_ITS ---
EXAM: CT HEAD WO CLINICAL HISTORY: fall on blood thinners. TECHNIQUE: Imaging Protocol: Axial computed tomography images with coronal and sagittal reformatted images were created and reviewed COMPARISON: No exams were available for comparison FINDINGS: Ventricles and Extra axial spaces: Normal in size and morphology for the patient's age. Hemorrhage: None. Cerebral parenchyma: Normal. Midline shift: None. Brainstem/Cerebellum: Normal. Calvarium: Normal. Visualized Paranasal sinuses/Mastoids: Clear. Soft Tissues: Left parietal scalp hematoma.. IMPRESSION: No acute intracranial process. RADIATION DOSE DELIVERED: 669.44mGy.cm Total DLP DATA REPOSITORY: All CT scans at this facility are submitted to the National Radiology Data Registry (NRDR) Dose Index Registry (DIR) with the [employer] (A[employer]). RADIATION OPTIMIZATION: All CT scans at this facility use at least one of these dose optimization te chniques: automated exposure control; mA and/or kV adjustment per patient size (includes targeted exa ms where dose is matched to clinical indication); or iterative reconstruction.
--- NOTE | 2020-03-11 14:59 | ED.GENADUL_ITS ---
Discharge Plan Disposition Patient Disposition: HOME Condition: Stable Discharge Details Chief Complaint: Trauma Clinical Impression: Closed head injury, Near syncope Primary Care Provider: Cristiane Rodriguez ED Provider: Janice Covarrubias Home Meds and New Rx's Prescriptions: Continued pantoprazole 40 mg tablet,delayed release (DR/EC) 40 mg PO QAM RF: 0 cyanocobalamin (vitamin B-12) 1,000 mcg capsule 1,000 mcg PO DAILY RF: 0 ascorbic acid (vitamin C) 1,000 mg tablet 1 gm PO DAILY RF: 0 calcium carbonate [Calcium 600] 600 mg calcium (1,500 mg) tablet 600 mg PO DAILY RF: 0 potassium chloride 20 mEq tablet extended release 20 meq PO DAILY RF: 0 atenolol 50 mg tablet 50 mg PO DAILY Qty: 90 RF: 5 turmeric 400 mg capsule 1,000 mg PO DAILY RF: 0 aspirin [Aspir-81] 81 MG tablet,delayed release (DR/EC) 81 mg PO DAILY RF: 0 ferrous sulfate [Feosol] 325 mg (65 mg iron) tablet 650 mg PO DAILY RF: 0 nitroglycerin [Nitrostat] 0.4 mg tablet, sublingual 0.4 mg SL Q5M PRNRF: 0 sertraline 100 mg Tablet 100 mg PO DAILY RF: 0 chlorthalidone 50 mg Tablet 50 mg PO DAILY RF: 0 PreserVision AREDS [id number] Tablet 1 tab PO DAILY RF: 0 pravastatin 20 mg Tablet 40 mg PO QPM Qty: 60 RF: 3 famotidine 20 mg tablet 20 mg PO DAILY RF: 0 Xarelto 20 mg tablet 20 mg PO QPM Qty: 6 RF: 0 Discharge Instructions Instructions: Head Injury (ED), Near Syncope (ED) Additional Instructions: Follow up with primary care provider in 3-5 days. Return to ED sooner if any worsening headache, visual disturbances, chest pain or shortness of breath or concerns. Increase oral fluids. It is concerning that she fell and are on blood thinners. Also the near syncope episodes are also concerning. If you start feeling any worse at all do not hesitate to return to the ED. Referrals: Cristiane Rodriguez MD [Primary Care Provider] - Discharge Data Discharge Date/Time-TO BE ENTERED AT DEPARTURE: 03/11/20 17:25 Medical Decision Making <KARINA Shaw - Last Filed: 03/13/20 00:37> Is a 75-year-old patient presenting the emergency room after a head injury 2 days ago. Patient reports she had a dream that she fell out of bed and patient awoke in the morning on the ground with obvious hematoma to the left aspect of her head. Patient reports no other obvious sites of pain. Patient denies headache or dizziness. Patient does report she is on a blood thinner. Patient did report a symptomatic episode when she was taking a shower yesterday during which she was in the shower and became lightheaded felt as if she was going to pass out and did have a single episode of dry heaving. Otherwise she has been able to eat and drink without difficulty. Patient denies numbness tingling or weakness of extremities. HPI for details regarding the remainder of patient's history. We will plan to check head CT, EKG as well as labs. We will plan to rehydrate. On exam patient does have mild bruising to the left side of her scalp as well as her face. No facial pain with palpation or concern of facial fracture. Patient's breath sounds are clear, benign abdominal exam. No significant distal edema present. Patient has no midline neck tenderness. Full range of motion of neck. Saint Patient's labs reveal no significant leukocytosis or anemia. Patient's electrolytes reveal mild increase in creatinine, concern for possible dehydration. Glucose normal. LFTs normal, mild increase in alk phos. EKG reveals a heart rate of 52. No significant ST depression. Discussed with Dr. Blue. Head CT FINDINGS: Ventricles and Extra axial spaces: Normal in size and morphology for the patient's age. Hemorrhage: None. Cerebral parenchyma: Normal. Midline shift: None. Brainstem/Cerebellum: Normal. Calvarium: Normal. Visualized Paranasal sinuses/Mastoids: Clear. Soft Tissues: Left parietal scalp hematoma.. IMPRESSION: No acute intracranial process. Patient signed out pending urinalysis, completion of IV fluid and reevaluation. <Janice Covarrubias - Last Filed: 03/11/20 22:01> 1618: Care assumed from outgoing provider KARINA Solo, patient is receiving IV fluids which are infusing without difficulty at this time. She is alert and oriented, she is not complaining of any pain at this time, no headache. When asked how patient is doing she states I feel great. Discussed plan of care and pending labs, verbalized understanding. 1705: Urinalysis has returned which shows moderate RBCs no evidence of UTI no leukocytes no nitrites. Patient is requesting to be discharged. She is received approximately 800 cc normal saline. She has a benign neuro exam, she does have family to go home to. At this time she is not having any chest pain no shortness of breath. She is alert and oriented x3 I do feel it is safe for her to be discharged home. Her d-dimer was slightly elevated at 598 but with age-adjusted d-dimer this is not elevated. Discussed home care and strict return instructions with patient, verbalized understanding. 1715: Spoke with patient's daughter regarding plan to discharge patient home, verbalized understanding given strict return instructions for worsening headache, visual disturbances any concerns to return to the ER. HPI <KARINA Shaw - Last Filed: 03/13/20 00:37> General Date/Time Provider Initiated Documentation: 03/11/20 14:12 . HPI Narrative: This is a 75-year-old patient presenting to the emergency room after a fall or syncopal episode 2 days ago. Patient reports she awoke in the morning on the floor. She had a dream that she fell out of her bed. Patient reports she may have gotten up to go to the bathroom and had a syncopal episode but does not recall falling. Patient reports she had no significant pain when she awoke. Patient is on a blood thinner and has clear evidence of striking her head as she has a hematoma noted to the left scalp. Patient has ecchymosis toward her eye and her face. Denies any facial pain. Denies any vision change. Denies blurred vision or double vision. Patient denies any tenderness. Denies neck pain. Patient denies paresthesia of arms or legs. Patient reports she has been feeling well for the last few days with the exception of yesterday when showering she felt presyncopal and had an episode of dry heaving. She did not have a syncopal episode. Patient denies any chest pain. She does report mild shortness of breath which is her baseline. Patient denies any distal edema. Patient denies any back pain. Denies any abdominal pain. Has been eating and drinking without difficulty. No other concerns or complaints at this time. Patient does have a history of aortic valve regurgitation, history of A. fib, history of stroke due to embolism, history of hypertension, history of bradycardia. History of anxiety and depression. Denies any changes in daily medications. Patient denies dizziness. Denies rash. Denies fever, chills, cough, upper respiratory symptoms. Related Data Home Medications Medication Instructions Recorded Confirmed aspirin [Aspir-81] 81 mg PO DAILY tab-cap 01/22/16 03/11/20 ascorbic acid (vitamin C) 1,000 mg 1 gm PO DAILY tab 12/18/18 03/11/20 tablet calcium carbonate 600 mg calcium 600 mg PO DAILY tab 12/18/18 03/11/20 (1,500 mg) tablet cyanocobalamin (vitamin B-12) 1,000 mcg PO DAILY 12/18/18 03/11/20 1,000 mcg capsule pantoprazole 40 mg tablet,delayed 40 mg PO QAM tab 12/18/18 03/11/20 release PreserVision AREDS 1 tab PO DAILY 10/03/19 03/11/20 chlorthalidone 50 mg PO DAILY 10/03/19 03/11/20 sertraline 100 mg PO DAILY 10/03/19 03/11/20 pravastatin 40 mg PO QPM #60 tab 10/04/19 03/11/20 ferrous sulfate 325 mg (65 mg 650 mg PO DAILY tab 11/05/19 03/11/20 iron) tablet nitroglycerin 0.4 mg sublingual 0.4 mg SL Q5M PRN 11/05/19 03/11/20 tablet Xarelto 20 mg PO QPM #6 tab 11/06/19 03/11/20 atenolol 50 mg tablet 50 mg PO DAILY #90 tab 11/08/19 03/11/20 famotidine 20 mg tablet 20 mg PO DAILY tab 11/08/19 03/11/20 potassium chloride 20 mEq 20 meq PO DAILY tab 11/08/19 03/11/20 tablet,extended release turmeric 400 mg capsule 1,000 mg PO DAILY cap 11/19/19 03/11/20 Previous Rx's Medication Instructions Recorded pravastatin 40 mg PO QPM #60 tab 10/04/19 Xarelto 20 mg PO QPM #6 tab 11/06/19 atenolol 50 mg tablet 50 mg PO DAILY #90 tab 11/08/19 Allergies Allergy/AdvReac Type Severity Reaction Status Date / Time Fish Containing Products Allergy Intermediate Verified 03/11/20 14:13 Penicillins Allergy Intermediate Verified 03/11/20 14:13 lactose AdvReac Intermediate Diarrhea Unverified 03/11/20 14:13 seafood Allergy Severe Uncoded 03/11/20 14:13 General Stated Complaint: Trauma KYLEE: 3 Review of Systems <KARINA Shaw - Last Filed: 03/13/20 00:37> All systems reviewed & are unremarkable except as noted in HPI and below PFSH <KARINA Shaw - Last Filed: 03/13/20 00:37> Medical History Anemia (Chronic) Anxiety (Chronic) Aortic valve regurgitation (Acute) Depression (Chronic) GERD (gastroesophageal reflux disease) Heart burn History of dysthymic disorder (Acute) Hyperplastic colonic polyp (Acute) Hypertension (Chronic) Lactose intolerance (Acute) Memory impairment (Acute) Mitral valve regurgitation (Chronic) Pulmonary valve regurgitation (Acute) Restless leg syndrome (Acute) Social History Smoking/Tobacco Use Status: Former Tobacco Use Quit Date: 10/16/99 Tobacco: How many years used: 30 Alcohol Intake: current Alcohol Intake frequency: holidays/special occasions only Drug use: Never Substance use type: does not use Household members: spouse Housing: house Number of Children: 4 What is your relationship status?: Panel score (0-1 are the most socially isolated patients): 1 What type of physical activity do you participate in: none Seatbelt use: always Do you feel safe at home: Yes Do you feel safe in your relationship?: Yes Exam <KARINA Shaw - Last Filed: 03/13/20 00:37> Narrative Exam Narrative: CONST: Healthy appearing patient, in no acute distress. Well hydrated. Alert and oriented x3. HENMT: Head nomocephalic, normal to inspection. . Hearing grossly normal. External ear canal no erythema or swelling. TM normal bilaterally. Nose normal to inspection. No rhinnorhea. Normal facial exam. Oral mucosa normal. Tounge normal. Dentition normal. Normal posterior oropharynx. Uvula midline. Patient does have bruising near the left adventism, mid facial bruising without palpable tenderness. Full range of motion of jaw. No trismus. EYES: General normal appearance. Alignment normal. Eyelids normal. Conjunctiva normal. Sclera normal. PERRL. NECK: Normal visual inspection. FROM. No lymphadenopathy. Trachea midline. No Midline tenderness. CHEST: Normal insepection of the chest. RESP: Normal respiratory effort. Speaking full sentences. No cough. No wheezing. No retractions. Clear to auscaltation. Breath sound equal and present bilaterally. CARDIO: No JVD. Normal PMI. Regular Rate. Regular Rhythm. Normal peripheral pulses. GI: Normal inspection of abdomen. No distension. Soft. Nontender. Bowel sounds present in all 4 quadrants. No rebound. No gaurding. MUSCULOSKELETAL: Normal Gait. FROM of all extremities. Distal neurovascularly intact. Sensation intact distally. SKIN: Normal. Dry. No rashes. NEURO: Alert and awake. Speech clear. Alert and oriented x 3. Speech is clear. Cranial nerves intact as tested III - XI. Normal [id number] test. No pronator drift. Normal heel-mendez test. No Nystagmus. Gait normal. Strength intact in all extremities. Sensation intact in all extremities. PSYCH: Normal affect. Cooperative. Course <KARINA Shaw - Last Filed: 03/13/20 00:37> Vital Signs Vital signs: Vital Signs Temperature 37.0 C 03/11/20 14:10 Pulse 64 03/11/20 14:10 Respiratory Rate 14 03/11/20 14:10 Blood Pressure 127/81 03/11/20 14:10 Pulse Oximetry 95 03/11/20 14:10 Temperature 37.0 C 03/11/20 14:10 Temperature Source Skin 03/11/20 14:10 Pulse 64 03/11/20 14:10 Respiratory Rate 14 03/11/20 14:10 Blood Pressure 127/81 03/11/20 14:10 Blood Pressure Position Sitting 03/11/20 14:10 Pulse Oximetry 95 03/11/20 14:10 Oxygen Delivery Method Room Air 03/11/20 14:10 Oxygen Flow Rate 0 03/11/20 14:10 Pain Level 0 03/11/20 14:10 Sign Out <KARINA Shaw - Last Filed: 03/13/20 00:37> Sign Out Data: Sign Out Comment: Patient signed out pending hydration, urinalysis, reevaluation and discharge Last updated by Shirley Rosado PA at 03/11/20 16:10
[2020-03-11] MEDS: Normal Saline 1,000 ML 1000 ML IV (15:23)
[2020-03-11 15:34] LABS: Abs Immature Grans 0.02 k/cumm (0.0-0.09); Absolute Basophil Count 0.03 k/cumm (0.0-0.2); Absolute Eosinophil Count 0.11 k/cumm (0.0-0.7); Absolute Lymphocyte Count 2.61 k/cumm (1.2-3.4); Absolute Monocyte Count 0.64 k/cumm (0.11-0.7); Absolute Neutrophil Count 4.87 k/cumm (1.2-6.7); Basophils % 0.4; Eosinophils % 1.3; HCT 40.4 % (36.0-46.0); HGB 13.2 g/dL (12.0-15.5); Immature Grans % 0.2 %; Lymphocytes % 31.5; Mean Corp. HGB Concentration 32.7 g/dL (32.0-36.0); Mean Corpuscular Hemoglobin 28.9 pg (27.0-33.0); Mean Corpuscular Volume 88.4 fL (80-95); Mean Platelet Volume 10.2 fL (8.0-11.0); Monocytes % 7.7; Neutrophils % 58.9; Platelet Count 198 x1000/uL (130-400); RBC 4.57 m/cumm (4.00-5.20); RBC Distribution Width 13.9 % (11.7-14.6); White Blood Cell Count 8.28 k/cumm (4.4-10.8)
[2020-03-11 15:49] LABS: Albumin 3.7 g/dL (3.4-5.0); Alkaline Phosphatase 124 U/L (46-116); Anion Gap 5.7 mmol/L (3-11); BUN 22 mg/dL (7-18); Bilirubin, Total 2.5 mg/dL (0.2-1.0); CO2 30.3 mmol/L (21.0-32.0); CREATININE 1.27 mg/dL (0.55-1.02); Calcium 9.1 mg/dL (8.5-10.1); Chloride 104 mmol/L (98-107); Estimated GFR 40.91 (mL/min/1.73m2); Glucose 125 mg/dL (74-106); Potassium 3.7 mmol/L (3.5-5.1); Sodium 140 mmol/L (136-145); Total Protein 7.9 g/dL (6.4-8.2)
[2020-03-11 15:51] LABS: Troponin I < 0.05 ng/mL (<0.06)
[2020-03-11 16:00] LABS: ALT 21 U/L (14-59); AST 15 U/L (15-37)
[2020-03-11 16:28] LABS: Bilirubin Negative (Negative); Blood Moderate (Negative); Clarity Clear (Clear); Glucose Negative (Negative); Ketones Negative (Negative); Leukocyte Esterase Negative (Negative); Nitrite Negative (Negative); Specific Gravity >= 1.030 (1.005-1.025); Urobilinogen 0.2 EU/dL (Up TO 0.2)
[2020-03-11 16:49] LABS: D-Dimer 598 ng/mlFEU (<500)
[2020-03-11 16:59] LABS: Bacteria Moderate HPF (Negative); Crystals Few Amorphous HPF (Negative); Epithelial Cells Negative HPF (Negative); Mucus Moderate (Negative); Other Cells Negative (Negative); RBC 20-50 HPF (0-2)
[2020-03-11 17:00] LABS: C & S Indicated? Yes
[2020-03-11 17:24] VITALS: PULSE 58; O2SAT 99
== END 2020-03-11 17:25 | disposition home or self-care (01) ==
PROVIDERS: Physician Assistant; Emergency Provider Registered Nurse Emergency; PCP Family Medicine
DX: S09.90XA Unspecified injury of head, initial encounter (principal); S00.03XA Contusion of scalp, initial encounter; S00.83XA Contusion of other part of head, initial encounter; W19.XXXA Unspecified fall, initial encounter; Z79.01 Long term (current) use of anticoagulants; I48.91 Unspecified atrial fibrillation; I10 Essential (primary) hypertension
CPT/HCPCS: 36415; 36416; 80053; 82962; 93005; 96360; 96361; 99284; 70450; 71046; 81003; 81015; 84484; 85025; 85379; 87086; 93010; 99285

== ENCOUNTER → 2020-05-21 13:41 | Outpatient (BNVA) | payer OTHER, SELFPAY | PROVIDERS: PCP Family Medicine; Referring Provider Family Medicine; Visit Provider Internal Medicine Cardiovascular Disease | DX: I10 Essential (primary) hypertension; I48.0 Paroxysmal atrial fibrillation; I08.0 Rheumatic disorders of both mitral and aortic valves | CPT/HCPCS: 99443; 99213 ==

== ENCOUNTER 2020-06-19 17:17 | Outpatient (REF) | payer OTHER, SELFPAY ==
[2020-06-19 20:02] LABS: Clarity Sl Cloudy (Clear)
[2020-06-19 20:25] LABS: Bacteria Packed HPF (Negative); C & S Indicated? Yes; Crystals Negative HPF (Negative); Epithelial Cells Few HPF (Negative); Mucus Negative (Negative); WBC >50 HPF (0-5)
== END 2020-06-19 17:37 ==
LOC: NCHCN 17:17
PROVIDERS: PCP Family Medicine; Visit Provider Family Medicine
DX: R39.9 Unspecified symptoms and signs involving the genitourinary system (principal)
CPT/HCPCS: 87077; 81003; 81015; 87086; 87186

== ENCOUNTER → 2020-07-16 10:53 | Outpatient (BNVA) | payer OTHER, SELFPAY | PROVIDERS: PCP Family Medicine; Referring Provider Family Medicine; Visit Provider Internal Medicine Cardiovascular Disease | DX: I48.0 Paroxysmal atrial fibrillation; I10 Essential (primary) hypertension; I08.0 Rheumatic disorders of both mitral and aortic valves | CPT/HCPCS: 99214; 99442 ==

== ENCOUNTER 2020-10-14 16:09 | Outpatient (REF) | payer OTHER, SELFPAY ==
[2020-10-14 19:58] LABS: HCT 37.2 % (36.0-46.0); HGB 11.4 g/dL (11.2-15.7); MCHC 30.6 % (32.0-36.0); MCV 91.4 fL (80-95); MPV 11.2 fL (8.0-11.0); Platelet Count 249 10^3/uL (130-400); RBC 4.07 10^6/uL (3.93-5.22); RDW 13.1 % (11.7-14.6); RDW-SD 42.9 fL; WBC 7.77 10^3/uL (4.4-10.8)
[2020-10-14 20:27] LABS: Anion Gap 7.5 mmol/L (3-11); BUN 20 mg/dL (7-18); CO2 30.5 mmol/L (21.0-32.0); CREATININE 1.11 mg/dL (0.55-1.02); Calcium 9.1 mg/dL (8.5-10.1); Chloride 105 mmol/L (98-107); Estimated GFR 47.79 (mL/min/1.73m2); Ferritin 92 ng/mL (8-252); Glucose 86 mg/dL (74-106); Potassium 3.6 mmol/L (3.5-5.1); Sodium 143 mmol/L (136-145)
== END 2020-10-14 16:29 ==
LOC: NCHCN 16:09
PROVIDERS: PCP Family Medicine; Visit Provider Family Medicine
DX: D64.9 Anemia, unspecified (principal); I10 Essential (primary) hypertension; I48.0 Paroxysmal atrial fibrillation
CPT/HCPCS: 80048; 85027; 82728

== ENCOUNTER → 2020-10-20 11:15 | Outpatient (BNVA) | payer OTHER, SELFPAY | PROVIDERS: PCP Family Medicine; Referring Provider Family Medicine; Visit Provider Internal Medicine Cardiovascular Disease | DX: I48.0 Paroxysmal atrial fibrillation (principal); I08.3 Combined rheumatic disorders of mitral, aortic and tricuspid valves; I10 Essential (primary) hypertension | CPT/HCPCS: 99214; 99442 ==

== ENCOUNTER 2021-02-04 02:10 | Outpatient (CLI) | payer OTHER, SELFPAY ==
--- NOTE | 2021-02-04 | DI.DEXA_ITS ---
EXAM: XR DEXA BONE DENSITY W/WO GIOVANNY CLINICAL HISTORY: SCREENING FOR OSTEOPOROSIS IN POSTMENOPAUSAL WOMAN,Z78.0 TECHNIQUE: Routine DEXA evaluation of the lumbar spine, hip, or forearm. COMPARISON: No exams were available for comparison FINDINGS: Performed on a Hologic unit. Lateral image: No compression fracture evident. Lumbar Spine total T-score: 0.5 Hip total T-score:0.9 Independent reading at the femoral neck yields a T-score of 0.0 Forearm total T-score: -0 point IMPRESSION: Bone mineral density measures in the normal range. Fracture risk is low. Note: Any spine fracture indicates 5x risk for subsequent spine fracture and 2x risk for subsequent h ip fracture. World Health Organization criteria for BMD interpretation classify patients: Normal...... T- Score at or above -1.0 Osteopenic... T- Score between -1.0 and -2.5 Osteoporosis... T-Score at or below -2.5
--- NOTE | 2021-02-04 | DI.MAMMO_ITS ---
EXAM: MG MAMMO SCREENING CLINICAL HISTORY: SCREENING, Z12.31. TECHNIQUE: Bilateral full field digital CC and MLO mammographic images were obtained with 3D tomosyn thesis and utilizing computer aided detection (CAD). COMPARISON: Prior mammograms dating back to 2010, the most recent being November 2019. Prior ultrasound November 2019 was reviewed. FINDINGS: No new significant radiograph findings in the right breast. The left breast previously described well-defined nodule located inferiorly has slightly further incr eased in size. Remains well-defined. Benign-appearing microcalcifications are again noted in the breasts. There are no new malignant-appe aring microcalcification groups in either breast There is no significant architectural distortion nor skin thickening-retraction. IMPRESSION: 1. No radiographic evidence of malignancy in the right breast. 2. Increasing size left breast nodule. Although this was shown to be a cyst on prior ultrasound exam recommend repeat ultrasound examination to ensure that it remains completely cystic and without luis d components. BI-RADS Category 0 - Assessment Incomplete: Need additional imaging evaluation Breast Density - Category B - Scattered areas of fibroglandular density Breast density Category C or D implies that the patient has dense breast tissue. Dense breast tissue can make it harder to find cancer on a mammogram. Dense breast tissue is also associated with an incr eased risk of breast cancer. This information about the result of the mammogram report was provided to the patient to raise their awareness. Use this report when you speak with the patient about their risks for breast cancer, which includes their family history. At that time, you may recommend additional screening tests (Ultrasoun d or MRI) as these tests may add significant information. A negative radiographic report should not delay biopsy if a dominant or clinically suspicious mass is present. Up to ten percent of cancers are not identified on mammography. A negative report may reinforce clinical impression. Adenosis and dense breasts may obscure an underlying neoplasm. False positive reports average 6 to 10%. Patient will receive a letter notifying them of these results.
== END 2021-02-04 02:30 ==
PROVIDERS: PCP Family Medicine; Visit Provider Family Medicine
DX: Z12.31 Encounter for screening mammogram for malignant neoplasm of breast (principal); R92.8 Other abnormal and inconclusive findings on diagnostic imaging of breast; Z13.820 Encounter for screening for osteoporosis; Z78.0 Asymptomatic menopausal state
CPT/HCPCS: 77063; 77067; 77080

== ENCOUNTER 2021-05-31 14:56 | Outpatient (REF) | payer OTHER, SELFPAY ==
[2021-05-31 19:14] LABS: Anion Gap 9.3 mmol/L (3-11); BUN 16 mg/dL (7-18); CO2 30.7 mmol/L (21.0-32.0); CREATININE 1.2 mg/dL (0.55-1.02); Calcium 9.7 mg/dL (8.5-10.1); Chloride 105 mmol/L (98-107); Estimated GFR 43.56 (mL/min/1.73m2); Glucose 105 mg/dL (74-106); Potassium 3.9 mmol/L (3.5-5.1); Sodium 145 mmol/L (136-145)
== END 2021-05-31 14:57 | disposition home or self-care (01) ==
LOC: NCHCN 14:56
PROVIDERS: PCP Family Medicine; Visit Provider Family Medicine
DX: I10 Essential (primary) hypertension (principal)
CPT/HCPCS: 80048

== ENCOUNTER → 2021-06-15 12:57 | Outpatient (BNVA) | payer OTHER, SELFPAY | PROVIDERS: PCP Family Medicine; Referring Provider Family Medicine; Visit Provider Internal Medicine Cardiovascular Disease | DX: I48.0 Paroxysmal atrial fibrillation (principal); I35.1 Nonrheumatic aortic (valve) insufficiency; I10 Essential (primary) hypertension | CPT/HCPCS: 99214; 99213 ==

== ENCOUNTER 2021-11-23 14:37 | Outpatient (REF) | payer MEDICARE, SELFPAY ==
[2021-11-23 17:11] LABS: HCT 40.2 % (36.0-46.0); HGB 12.2 g/dL (11.2-15.7); MCH 28.2 pg (27.0-33.0); MCHC 30.3 % (32.0-36.0); MCV 93.1 fL (80-95); MPV 10.4 fL (8.0-11.0); Platelet Count 227 10^3/uL (130-400); RBC 4.32 10^6/uL (3.93-5.22); RDW 13.6 % (11.7-14.6); RDW-SD 46.8 fL; WBC 6.95 10^3/uL (4.4-10.8)
[2021-11-23 17:25] LABS: Anion Gap 8.9 mmol/L (3-11); BUN 15 mg/dL (7-18); CO2 30.1 mmol/L (21.0-32.0); Calcium 9.2 mg/dL (8.5-10.1); Calculated LDL 70 mg/dL (<100); Chloride 106 mmol/L (98-107); Cholesterol 148 mg/dL (<200); Estimated GFR 53.76 (mL/min/1.73m2); Glucose 90 mg/dL (74-106); HDL Cholesterol 61 mg/dL (40-60); Potassium 3.8 mmol/L (3.5-5.1); Sodium 145 mmol/L (136-145); Triglyceride 85 mg/dL (<150)
== END 2021-11-23 14:38 | disposition home or self-care (01) ==
LOC: NCHCN 14:37
PROVIDERS: PCP Family Medicine; Visit Provider Family Medicine
DX: I48.0 Paroxysmal atrial fibrillation (principal); I34.0 Nonrheumatic mitral (valve) insufficiency; I10 Essential (primary) hypertension
CPT/HCPCS: 80048; 80061; 85027

== ENCOUNTER → 2021-12-13 14:24 | Outpatient (BNVA) | payer MEDICARE, SELFPAY | PROVIDERS: PCP Family Medicine; Visit Provider Internal Medicine Cardiovascular Disease | DX: I48.21 Permanent atrial fibrillation (principal); I35.1 Nonrheumatic aortic (valve) insufficiency; I63.9 Cerebral infarction, unspecified | CPT/HCPCS: 99214; 99213 ==

== ENCOUNTER → 2021-12-28 14:20 | Outpatient (BNVA) | payer MEDICARE, SELFPAY | PROVIDERS: PCP Family Medicine; Referring Provider Family Medicine; Visit Provider Surgery | DX: R13.10 Dysphagia, unspecified (principal) | CPT/HCPCS: 99202; 99214 ==

== ENCOUNTER 2022-02-09 02:40 | Outpatient (CLI) | payer MEDICARE, SELFPAY ==
--- NOTE | 2022-02-09 13:56 | DI.US_ITS ---
APPROVED REPORT EXAM: Comprehensive 2D, Doppler, and color-flow Echocardiogram Patient Location: Out-Patient Neonatal Intensive Care Unit Nurse: Evie Pastor RDCS (AE) Indications: Aortic Regurgitation, Pre op , CVA Other Information Study Quality: Adequate Conclusion Normal left ventricular wall thickness and chamber size. Estimated ejection fraction is 55 to 60%. Wall motion is normal Normal right ventricular size and systolic function Both atria are mildly dilated The aortic valve is trileaflet and sclerotic with mild regurgitation. There is no aortic stenosis Normal mitral valve with mild to moderate regurgitation Normal tricuspid valve with mild regurgitation. Estimated right ventricular systolic pressure is 33 mmHg Normal pulmonic valve with mild regurgitation Wall motion Left Ventricle The left ventricle is normal size. The left ventricular systolic function is normal. The left ventric ular ejection fraction is within the normal range. There is normal left ventricular wall thickness. T here is normal LV segmental wall motion. There is no ventricular septal defect visualized. LVEF is 56 %. Right Ventricle The right ventricle is normal size. The right ventricular systolic function is normal. The RVSP is 33 .4mmHg. Atria Left atrium is mildly dilated. Right atrium is mildly dilated. The interatrial septum is intact with no evidence for an atrial septal defect. Aortic Valve The Aortic valve is sclerotic. Aortic valve is trileaflet. There is no aortic valvular stenosis. Mild aortic regurgitation. Mitral Valve The mitral valve is normal in structure. No evidence of mitral valve stenosis. Mild to moderate miriam l regurgitation. Tricuspid Valve The tricuspid valve is normal in structure. There is no tricuspid valve stenosis. Mild tricuspid regu rgitation. Pulmonic Valve The pulmonary valve is normal in structure. There is no pulmonic valvular stenosis. Mild pulmonic reg urgitation. Great Vessels The aortic root is normal in size. The ascending aorta is normal in size. The IVC collapses <50% with inspiration. Pericardium There is no pericardial effusion. 2D Dimensions IVSD d PLAX 0.70 cm F: 0.6-1.0 LV Vol A2C d MOD 72.7 mL LVPW d PLAX 0.70 cm F: 0.6 - 1.0 LV Vol A4C d MOD 68.4 mL LVID d PLAX 4.17 cm F: 3.8 - 5.2 LA vol/ BSA A4C s A-L 45.8 mL/m2 LVDs 3.00 cm F: 2.2 - 3.5 LA Area A4C s MOD 22.39 cm2 Ao Root d 2.73 cm F: 2.7 - 3.3 LV EF A4C MOD 57.6 % RA Area A4C 23.24 cm2 LV EF A2C MOD 55.7 % RA Vol/ BSA A4C s A-L 43.9 mL/m2 LV EF Biplane MOD 57.1 % Ao Asc Diam d 2.90 cm F: 2.3 - 3.1 SV 41.52 mL LV EF Teichholz 54.7 % SV Index 26.40 mL/m2 LVEF (Mendoza's) 57.11 % F: 54 - 74 LV Volume 59.46 mL F: 46 - 106 LV Volume Index 37.87 mL/m2 F: 29 - 61 LV Vol Biplane MOD 72.7 mL FS 28.05 % M-Mode TAPSE 1.24 cm (M/F) >1.7 LV Diastology MV E' medial 0.091 (>0.07 m/s) MV E Vmax 1.03 (0.4-1.3 m/s) LV E/e MED 11.20 (<14) MV E' lateral 0.116 (>0.1 m/s) LV E/e LAT 8.85 (<14) MV E/E' medial 11.25 MV E/E' lateral 8.87 Aortic Valve LVOT Area 2.98 cm2 AoV Area Vmax 2.02 cm2 LVOT Vmax 0.88 m/s AoV Area/ BSA (Vmax) 1.28 cm2/m2 LVOT Mean Bj. 0.60 m/s GINA Mean Bj. 1.86 cm2 LVOT Peak Grad 3.1 mmHg GINA Mean Bj. Index 1.18 cm2/m2 LVOT Mean Grad 1.7 mmHg AR DT 1317 msec LVOT VTI 0.176 m AR PHT 382 msec LVOT Diam s 1.90 cm AoV Vmax 1.30 m/s Velocity Ratio 0.67 AoV Mean Bj. 0.96 m/s AoV Peak Grad 6.7 mmHg LVOT SV 52.42 mL AoV Mean Grad 4.1 mmHg AoV VTI 0.254 m AoV Area VTI 2.06 cm2 AoV Area/ BSA (VTI) 1.31 cm/m2 Mitral Valve MV DT 198 (160-240 msec) MR Vmax 4.06 m/s MV PHT 57 msec MR VTI 1.322 m MV Area PHT 3.84 cm2 MR Peak Grad 65.9 mmHg MV VTI 0.180 m MR Mean Grad 45.5 mmHg MV VTI Annulus 0.182 m MV Area VTI 2.95 (4.0-6.0 cm2) Pulmonary Valve PV Vmax 0.86 (0.5-1.5 m/s) RVOT Peak Gr. 2.37 mmHg PV Peak Grad 3.0 mmHg RVOT Mean Gr. 1.15 mmHg PV Mean Grad 1.6 mmHg RVOT VTI 0.145 m PV VTI 0.174 m RVOT Vmax 0.77 m/s Tricuspid Valve TR Peak Grad 25.3 mmHg TR Vmax 2.52 m/s RA Pressure 8.00 mmHg RVSP (TR) 33.4 mmHg
== END 2022-02-09 03:00 ==
PROVIDERS: PCP Family Medicine; Visit Provider Surgery
DX: I63.9 Cerebral infarction, unspecified (principal)
CPT/HCPCS: 93306

== ENCOUNTER 2022-02-25 01:27 | Outpatient (CLI) | payer MEDICARE, SELFPAY | END 2022-02-25 01:28 | disposition home or self-care (01) | LOC: LBO 01:27 | PROVIDERS: PCP Family Medicine; Visit Provider Surgery ==

== ENCOUNTER → 2022-04-08 13:20 | Outpatient (BNVA) | payer MEDICARE, SELFPAY | PROVIDERS: PCP Family Medicine; Referring Provider Family Medicine; Visit Provider Physical Therapy Assistant | DX: R13.10 Dysphagia, unspecified (principal); Z01.818 Encounter for other preprocedural examination ==

== ENCOUNTER 2022-04-11 03:13 | Outpatient (CLI) | payer MEDICARE, SELFPAY ==
[2022-04-11 11:23] LABS: Source Nasal/Nares
[2022-04-11 14:01] LABS: COVID-19 PCR Negative (Negative)
== END 2022-04-11 03:14 | disposition home or self-care (01) ==
LOC: LBO 03:13
PROVIDERS: PCP Family Medicine; Visit Provider Surgery
DX: Z20.822 Contact with and (suspected) exposure to COVID-19 (principal); Z01.818 Encounter for other preprocedural examination
CPT/HCPCS: 87635; U0005

== ENCOUNTER 2022-04-13 07:33 | Day surgery (SDC) | payer MEDICARE, SELFPAY ==
--- NOTE | 2022-04-13 06:23 | W.ANESPRE ---
General Info Date of Service Date Performed: 04/13/22 Height: 5 ft 1.5 in Weight: 58.513 kg Body Mass Index (BMI): 24.0 Surgical Procedure: Operation Date: 04/13/22 08:50 Proposed Procedure Side Surgeon p Gastroscopy Arely Hayes MD Meds Allergies and Home Medications Allergies Allergy/AdvReac Type Severity Reaction Status Date / Time Fish Containing Products Allergy Intermediate Verified 04/13/22 08:06 Penicillins Allergy Intermediate Verified 04/13/22 08:06 lactose AdvReac Intermediate Diarrhea Verified 04/13/22 08:06 seafood Allergy Severe Uncoded 04/13/22 08:06 Home Medication Medication Instructions Recorded aspirin 81 mg tablet,delayed 81 mg PO DAILY 01/22/16 release (Aspir-) ascorbic acid (vitamin C) 1,000 mg 1 gm PO DAILY 12/18/18 tablet calcium carbonate 600 mg calcium 600 mg PO DAILY 12/18/18 (1,500 mg) tablet (Calcium) cyanocobalamin (vitamin B-12) 1,000 mcg PO DAILY 12/18/18 1,000 mcg capsule pantoprazole 40 mg tablet,delayed 40 mg PO QAM 12/18/18 release vitamins A,C,R-newq-qzcxcu 7,160 1 tab PO DAILY 10/03/19 unit-113 mg-100 unit tablet (PreserVision AREDS) pravastatin 20 mg tablet 40 mg PO QPM #60 tabs 10/04/19 ferrous sulfate 325 mg (65 mg 650 mg PO DAILY 11/05/19 iron) tablet (Feosol) nitroglycerin 0.4 mg sublingual 0.4 mg sublingual Q5M PRN 11/05/19 tablet (Nitrostat) rivaroxaban 20 mg tablet (Xarelto) 20 mg PO QPM #6 tabs 11/06/19 atenolol 50 mg tablet 50 mg PO DAILY #90 tabs 11/08/19 famotidine 20 mg tablet 20 mg PO DAILY 11/08/19 potassium chloride 20 mEq 20 meq PO DAILY 11/08/19 tablet,extended release turmeric 400 mg capsule 1,000 mg PO DAILY 11/19/19 chlorthalidone 50 mg tablet 25 mg PO DAILY 10/20/20 escitalopram oxalate 10 mg tablet 10 mg PO DAILY 06/15/21 Current Visit Medications: Current Medications Generic Name Dose Route Start Last Admin Trade Name Freq PRN Reason Stop Dose Admin Ringer's Solution 1,000 mls @ 80 mls/hr 04/13/22 06:00 IV 05/12/22 23:59 [facility]ION [facility] IV Miscellaneous Supplies 1 each 04/13/22 06:00 Iv Access IV 05/12/22 23:59 DIRECTED GILSON Sodium Chloride 0 ml 04/13/22 06:00 Normal Saline Flush 10 Ml Syr IV 05/12/22 23:59 PRN PRN Sodium Chloride 0 ml 04/13/22 06:00 Normal Saline 10 Ml Vial IJ 05/12/22 23:59 DIRECTED PRN Sterile Water 0 ml 04/13/22 06:00 Water,Injection,Sterile 10 Ml Vial IJ 05/12/22 23:59 DIRECTED PRN PFSH Active Problems Active Problems: Problem Status Onset Code Dysphagia R13.10 Atrial fibrillation I48.91 Stroke due to embolism I63.9 Aortic valve regurgitation I35.1 Cerebrovascular accident I63.9 Bradycardia R00.1 Medical History Medical History Anemia Anxiety Aortic valve regurgitation Chest pressure Dark stools Depression Heart burn Hiatal hernia History of dysthymic disorder Hyperplastic colonic polyp Hypertension Lactose intolerance Memory impairment Mitral valve regurgitation Pulmonary valve regurgitation Restless leg syndrome Surgical History Surgical History (Updated 04/13/22 @ 08:11 by Quyen De Luna) Bladder Surgery Cholecystectomy EGD - MAC (07/12/17) Hx of colonoscopy pubovaginal sling Vaginal hysterectomy Tobacco Smoking/Tobacco Use Status: Former Tobacco Use Alcohol Alcohol Intake: current Alcohol intake frequency: holidays/special occasions only Substance Use Substance use: Never Substance use type: does not use Vital Signs and Lab Results Vital Signs Most Recent Vital Signs in EMR: Temp Pulse Resp BP Pulse Ox 36.0 C L 73 20 112/62 100 04/13/22 08:13 04/13/22 08:13 04/13/22 08:13 04/13/22 08:13 04/13/22 08:13 Lab Results Blood Type / Crossmatch: No Data to Display Complete Blood Count: No Data to Display Complete Metabolic Panel: No Data to Display Liver Function Panel: No Data to Display Coagulation Panel: No Data to Display Cardiac Panel: No Data to Display Arterial Blood Gas: No Data to Display Venous Blood Gas: No Data to Display Pancreas Panel: No Data to Display Thyroid Panel: No Data to Display Infectious Disease: Coronavirus (COVID-19)(PCR) Negative (Negative) 04/11/22 09:15 Coronavirus 2019 Source Nasal/Nares 04/11/22 09:15 Blood Cultures: No Data to Display Toxicology Panel: No Data to Display Imaging and Studies Imaging and Studies Study information below may be from another EMR and interpreted by another provider. Please see original notes in EMR for more complete details. Stress Test Summary: 2016: LVEF 65%, no defects. Echocardiogram Summary: 02/04: LVEF 55-60%, mild - mod MR, moder AR. mild TR. RVSP 33 mmhg. mild PA . Anesthesia Assessment and Plan Anesthesia History Personal History: No History of Anesthesia Complications Family History: No Family History of Anesthesia Complications Exercise Tolerance Exercise Tolerance: Metabolic Equivalents>4 Cardiac & Pulmonary Exam Cardiac Exam: Normal S1/S2 Heart Sounds Pulmonary Exam: Clear Bilateral Breath Sounds Implantable Cardiac Device Does patient have a Pacemaker or an ICD?: No Airway Exam Known Difficult Airway: No Mallampati Class: 2 Mouth Opening: Narrow (< 3cm) Thyromental Distance: Less than 3 cm Neck Range of Motion: Full ROM Neck Circumference: Normal Teeth Condition: Generalized Poor Dentition (Multiple missing ) ASA Classification ASA Score: ASA 3 Emergency Case?: No NPO Status NPO Status: NPO Clears >2 hours, Solids >8 hours Anesthesia Plan Resuscitation Status: Full Code Anesthesia Technique: General Anesthesia Airway Planned: Natural Airway Monitors Used: Standard Monitors Preoperative Comments:: 77 yo female with dysphagia here for EGD. Sig PMHx: afib, CVA (2019), dysphagia, anxiety/depression, RLS, former smoker, occ EtOH. Previous Anes: -EGD with fent 50/prop 50, gtt at 100 viki sat 88%.
--- NOTE | 2022-04-13 06:30 | ENDO_ITS ---
Date of service: 04/13/22 Time of Service: 09:07 Endoscopy Report DATE OF PROCEDURE: 04/13/22 PRE-OP DIAGNOSIS: dysphagia POST-OP DIAGNOSIS: other (large Hiatal hernia and inflammation) PROCEDURE: EGD with biopsies SURGEON: Arely Hayes ANESTHESIA TYPE: General:No Airway ESTIMATED BLOOD LOSS: 3 PATHOLOGY: other (antrum, cardi and GE junction) COMPLICATIONS: None DISPOSITION: same day INDICATIONS: Patient's symptoms of dysphagia continue.? Patient states she has tried all types of medical management including elevating the head of her bed, not laying down flat after meals and trying to eat smaller bites without any improvement in her symptoms.? Patient states the symptoms are associated with both solid food and her pills.? Patient has continued to lose weight and is down an additional 4 kg since last seen in December. -Discussed Upper endoscopy procedure and the need to be NPO after midnight the night prior. Discussed possible complications of the procedure to include bleeding, pain, perforation, missed small lesion/polyp/ulcers, sore throat, aspiration and adverse reaction to the medications or sedation. Questions were answered to patient?s satisfaction. No guarantees were implied or given.? FINDINGS: Large Hiatal hernia Inflammation PROCEDURE DESCRIPTION: After informed consent was obtained the patient was take to the procedure room and placed in a supine position. Monitors were applied and a time out was done. The patients name, date of , procedure type, allergies to medicatio ns and metal in their body was reviewed. A bite block was placed and the patient was sedated. Once sedated and comfortable the gastroscope was advanced through the oropharynx which was grossly normal into the esophagus. The proximal and mid- esophagus were normal. In the distal esophagus there was no noted. The scope was advanced into the stomach and through the pylorus into the 3rd portion of the duodenum. The duodenum was noted to be normal. The stomach appeared to be rotated due to the large Hiatal Hernia. The scope was retracted back into the stomach and biopsies were done to rule out H. pylori. There were no ulcers. The scope was retroflexed. The cardia and fundus were noted to inflammation. Biopsies were done. There was a large hiatal hernia noted. The scope was retra cted back into the esophagus and biopsies were done of the GE junction to rule out Rodriguez's. The Z line was regular. The GE junction was at 35 cm. The scope was removed and the patient was woken up and taken back to [facility] in stable condition.
--- NOTE | 2022-04-13 06:32 | W.PM.DSUDISC ---
Discharge Plan Disposition Patient Disposition: HOME Condition: Good Discharge Details Reason For Visit: Dysphagia Attending Provider: Arely Hayes Primary Care Provider: Cristiane Rodriguez Home Meds and New Rx's Prescriptions: Continued pantoprazole 40 mg tablet,delayed release (DR/EC) 40 mg PO QAM cyanocobalamin (vitamin B-12) 1,000 mcg capsule 1,000 mcg PO DAILY ascorbic acid (vitamin C) 1,000 mg tablet 1 gm PO DAILY calcium carbonate [Calcium 600] 600 mg calcium (1,500 mg) tablet 600 mg PO DAILY escitalopram oxalate 10 mg tablet 10 mg PO DAILY potassium chloride 20 mEq tablet extended release 20 meq PO DAILY atenolol 50 mg tablet 50 mg PO DAILY Qty: 90 5RF turmeric 400 mg capsule 1,000 mg PO DAILY aspirin [Aspir-81] 81 MG tablet,delayed release (DR/EC) 81 mg PO DAILY ferrous sulfate [Feosol] 325 mg (65 mg iron) tablet 650 mg PO DAILY nitroglycerin [Nitrostat] 0.4 mg tablet, sublingual 0.4 mg SL Q5M PRN PreserVision AREDS 7,160-113-100 [id number] Tablet 1 tab PO DAILY pravastatin 20 mg Tablet 40 mg PO QPM Qty: 60 3RF famotidine 20 mg tablet 20 mg PO DAILY chlorthalidone 50 mg tablet 25 mg PO DAILY Xarelto 20 mg tablet 20 mg PO QPM Qty: 6 0RF Rx Instructions: must administer with evening meal Discharge Instructions Instructions: Hiatal Hernia (DC), Diet for Stomach Ulcers and Gastritis (ED), GERD (Gastroesophageal Reflux Disease) (DC) Additional Instructions: Findings: Inflammation in the stomach Hiatal hernia Follow up: continue with medications as prescribed for now Please call if you develop: fevers >101.5 Nausea or Vomiting Abdominal pain that is not transient Rectal bleeding that is more then a tbsp A hard abdomen and inability to pass gas DAY SURGERY UNIT POST ENDOSCOPY INSTRUCTIONS Instructions for everyone who is given Anesthesia: For your safety, please do the following for the next 24 Hours: a. Do not drive or operate dangerous equipment b. Do not drink alcohol beverages or use any recreational drugs for the first 24 hours or while taking pain medications. The medications in your body may have a reaction that can be dangerous. c. Do not make any important decisions or sign any important papers 1. Generally there are no restrictions on your activity after a day or so has gone by, but you may feel a bit fatigued for a few days. 2. After you arrive home you may have a light meal and return to a normal diet as you can tolerate it without feeling sick to your stomach. 3. After surgery, you may feel pain or discomfort. This should be only transient, but if it persists please contact your doctor. 4. If there are any questions regarding the findings of your procedure, please feel free to contact your doctor. 6. If you are unable to contact your doctor with a problem, contact the hospital at [phone]. 7. Continue all your regular medications unless directed otherwise. I understand the above instructions and have no questions. Signature of Patient or Responsible Adult Escort Date/Time Name of Responsible Adult Escort Signature of Nurse Date/Time Activity:: Activity as Tolerated Diet:: As Tolerated Discharge Orders Discharge Orders: Discharge Order (Routine); Ordered 04/13/22 Ordered By: Arely Hayes
[2022-04-13 08:13] VITALS: BP 112/62; PULSE 73; RESP 20; TEMP 36; O2SAT 100
[2022-04-13 08:27] VITALS: BMI 24.0
[2022-04-13] MEDS: Lactated Ringers 1,000 ML 80 ML IV (08:30)
--- NOTE | 2022-04-13 08:53 | STOM_PTH ---
PATIENT: Marjorie Bird LOC: [facility] U#:[id number] AGE/SX: 77/F ROOM: RE04/13/[address]: Arely Hayes MD : [id number] BED: DIS: 04/13/2022 SPEC #: [id number] RECD: 04/13/22 12:45 STATUS: BEAU REQ #: [id number] NAVIN: 04/13/22 08:[address]: Arely Hayes DEPT: Surgical Specimen RECD BY: Niurka Mario ENTERED: 04/13/22 12:46 SP TYPE: STOMACH OTHR DR: Cristiane Rodriguez Tissues: 1 - STOMACH BIOPSY 2 - STOMACH BIOPSY 3 - ESOPHAGUS BIOPSY Procedures: GROSS AND MICRO LEVEL 4 Comments: [id number]
[2022-04-13 09:12] VITALS: BP 93/58; PULSE 78; RESP 20; TEMP 36.3; O2SAT 98
--- NOTE | 2022-04-13 09:14 | W.ANESPOSTOP ---
Postoperative Evaluation Date, Time and Location Date Performed: 04/13/22 Time Performed: 09:14 Patient Location: Day Surgery Unit Vital Signs Most Recent Imported Vital Signs: Most Recent Vital Signs Temp Pulse Resp BP Pulse Ox 36.3 C L 78 20 93/58 L 98 04/13/22 09:12 04/13/22 09:12 04/13/22 09:12 04/13/22 09:12 04/13/22 09:12 Pain Score Most Recent Pain Score: Most Recent Pain Score Pain Level 0 04/13/22 09:12 Assessment Mental Status: Awake (Alert & Oriented to Patient Baseline) Airway and Respiratory Function: Patent airway with normal (patient baseline) respiratory exam Cardiovascular Function: Hemodynamically Stable Hydration Status: Adequately Hydrated Nausea & Vomiting: No Nausea or Vomiting Pain: Pt. Denies Any Pain Peripheral Nerve Block: Patient did not receive a nerve block
[2022-04-13 09:35] VITALS: BP 121/59; PULSE 83; RESP 20; TEMP 36.5; O2SAT 98
== END 2022-04-13 10:10 | disposition home or self-care (01) ==
PROVIDERS: PCP Family Medicine; Visit Provider Surgery
PROC: 0DJ68ZZ Inspection of Stomach, Via Natural or Artificial Opening Endoscopic (ICD-10-PCS; CPT 43235; principal; 2022-04-13 08:45)
DX: R13.10 Dysphagia, unspecified (principal); K44.9 Diaphragmatic hernia without obstruction or gangrene; K29.70 Gastritis, unspecified, without bleeding; K31.89 Other diseases of stomach and duodenum; K22.89 Other specified disease of esophagus
CPT/HCPCS: 43239; 88305; J2704

== ENCOUNTER → 2022-05-26 00:47 | Outpatient (CLI) | payer MEDICARE, SELFPAY ==
--- NOTE | 2022-05-26 13:05 | DI.MAMMO_ITS ---
Exam(s) MAMMO SCREENING EXAM: MAMMO SCREENING CLINICAL HISTORY: SCREENING, Z12.31. TECHNIQUE: Bilateral full field digital CC and MLO mammographic images were obtained with 3D tomosyn thesis and utilizing computer aided detection (CAD). COMPARISON: Prior mammograms were reviewed, the most recent being January 2021. FINDINGS: No new significant radiograph findings in the right breast. The previously described nodule in the medial aspect the left breast is again noted, remaining well-d efined and unchanged from prior study of January 2021 and shown to be a benign cyst on prior ultrasound . There are no new spiculated masses nor malignant appearing microcalcification groups. There is no significant architectural distortion nor skin thickening-retraction. IMPRESSION: Stable benign findings. No radiographic evidence of malignancy. BI-RADS Category 2 - Benign Findings Breast Density - Category B - Scattered areas of fibroglandular density Breast density Category C or D implies that the patient has dense breast tissue. Dense breast tissue can make it harder to find cancer on a mammogram. Dense breast tissue is also associated with an incr eased risk of breast cancer. This information about the result of the mammogram report was provided to the patient to raise their awareness. Use this report when you speak with the patient about their risks for breast cancer, which includes their family history. At that time, you may recommend additional screening tests (Ultrasoun d or MRI) as these tests may add significant information. A negative radiographic report should not delay biopsy if a dominant or clinically suspicious mass is present. Up to ten percent of cancers are not identified on mammography. A negative report may reinforce clinical impression. Adenosis and dense breasts may obscure an underlying neoplasm. False positive reports average 6 to 10%. Patient will receive a letter notifying them of these results.
== END ==
PROVIDERS: PCP Family Medicine; Visit Provider Family Medicine
DX: Z12.31 Encounter for screening mammogram for malignant neoplasm of breast (principal)
CPT/HCPCS: 77063; 77067

== ENCOUNTER → 2022-08-16 09:57 | Outpatient (BNVA) | payer MEDICARE, SELFPAY | PROVIDERS: PCP Family Medicine; Visit Provider Internal Medicine Cardiovascular Disease | DX: I48.21 Permanent atrial fibrillation (principal); I35.1 Nonrheumatic aortic (valve) insufficiency; I34.0 Nonrheumatic mitral (valve) insufficiency; I10 Essential (primary) hypertension; I63.9 Cerebral infarction, unspecified | CPT/HCPCS: 93005; 99214 ==

== ENCOUNTER 2022-08-16 10:02 | Outpatient (CLI) | payer MEDICARE, SELFPAY ==
--- NOTE | 2022-08-16 10:00 | RT.EKG_ITS ---
APPROVED REPORT Exam: Resting ECG Reason for Exam: A fib Patient Location: O HR:83 bpm ECG Measurements Heart Rate 83 AXIS [place] [id number] P [id number] QRSd 89 QRS 31 QT 386 T 42 QTc 454 Conclusion Atrial fibrillation...? atrial activity Nonspecific repol abnormality, lateral leads...ST dep, T neg, I aVL V5 V6 Poor R wave progression
== END 2022-08-16 10:03 | disposition home or self-care (01) ==
LOC: DI.CARD 10:03
PROVIDERS: PCP Family Medicine; Visit Provider Internal Medicine Cardiovascular Disease
DX: I48.91 Unspecified atrial fibrillation (principal)
CPT/HCPCS: 93010

== ENCOUNTER 2022-12-14 18:10 | Outpatient (REF) | payer MEDICARE, SELFPAY ==
[2022-12-14 20:07] LABS: HCT 39.7 % (36.0-46.0); HGB 12.7 g/dL (11.2-15.7); MCH 28.9 pg (27.0-33.0); MCV 90 fL (80-95); MPV 10.1 fL (8.0-11.0); Platelet Count 201 10^3/uL (130-400); RBC 4.39 10^6/uL (3.93-5.22); RDW 13.1 % (11.7-14.6); WBC 7.27 10^3/uL (4.4-10.8)
[2022-12-14 20:39] LABS: Anion Gap 9.4 mmol/L (3-11); BUN 17 mg/dL (7-18); CO2 29.6 mmol/L (21.0-32.0); Calcium 9.3 mg/dL (8.5-10.1); Chloride 105 mmol/L (98-107); Estimated GFR 57.66 (mL/min/1.73m2); Ferritin 331 ng/mL (8-252); Glucose 81 mg/dL (74-106); Potassium 3.3 mmol/L (3.5-5.1); Sodium 144 mmol/L (136-145)
== END 2022-12-14 18:11 | disposition home or self-care (01) ==
LOC: NCHCN 18:10
PROVIDERS: PCP Family Medicine; Visit Provider Family Medicine
DX: D64.9 Anemia, unspecified (principal)
CPT/HCPCS: 80048; 85027; 82728

== ENCOUNTER 2023-01-25 13:36 | Emergency (ER) | payer MEDICARE, SELFPAY ==
[2023-01-25 13:46] VITALS: BP 132/62; PULSE 86; RESP 18; O2SAT 96
--- NOTE | 2023-01-25 14:45 | DI.RAD_ITS ---
Exam(s) XR HIP RT COMPLETE AP PELVIS EXAM: XR HIP RT COMPLETE AP PELVIS CLINICAL HISTORY: hip pain. TECHNIQUE: 2D digital imaging was performed. COMPARISON: No exams were available for comparison FINDINGS: 3 views No evidence of pelvic nor hip fracture. No hip joint space narrowing. Bone density is age-appropria te. No osseous lesions. SI joints unremarkable. IMPRESSION: No acute osseous findings in the pelvis and hips. DATA REPOSITORY: RADIATION DOSE DELIVERED:
--- NOTE | 2023-01-25 14:45 | DI.RAD_ITS ---
Exam(s) XR LUMBAR SPINE COMPLETE EXAM: XR LUMBAR SPINE COMPLETE CLINICAL HISTORY: lumbar spine pain. TECHNIQUE: 2D digital imaging was performed. COMPARISON: CR XR DEXA BONE DENSITY W/WO GIOVANNY from 02/04/2021 FINDINGS: 3 views No evidence of acute fracture or listhesis. Degenerative scoliosis noted convex right. Disc space n arrowing asymmetric right-sided L3-4 and L4-5 levels. Multilevel facet degenerative changes. SI finesse nts appear unremarkable. IMPRESSION: Scoliosis. No obvious acute fractures in the lumbar vertebrae. DATA REPOSITORY: RADIATION DOSE DELIVERED:
--- NOTE | 2023-01-25 14:56 | ED.GENADUL_ITS ---
Discharge Plan Disposition Patient Disposition: Home Discharge Details Clinical Impression: Lumbar radiculopathy Primary Care Provider: Cristiane Rodriguez ED Provider: Niurka Velazquez Home Meds and New Rx's Prescriptions: New prednisone 20 mg tablet 40 mg PO ONCE Qty: 10 0RF Continued pantoprazole 40 mg tablet,delayed release (DR/EC) 40 mg PO QAM cyanocobalamin (vitamin B-12) 1,000 mcg capsule 1,000 mcg PO DAILY ascorbic acid (vitamin C) 1,000 mg tablet 1 gm PO DAILY calcium carbonate [Calcium 600] 600 mg calcium (1,500 mg) tablet 600 mg PO DAILY escitalopram oxalate 10 mg tablet 10 mg PO DAILY potassium chloride 20 mEq tablet extended release 20 meq PO DAILY atenolol 50 mg tablet 50 mg PO DAILY Qty: 90 5RF turmeric 400 mg capsule 1,000 mg PO DAILY aspirin [Aspir-81] 81 MG tablet,delayed release (DR/EC) 81 mg PO DAILY ferrous sulfate [Feosol] 325 mg (65 mg iron) tablet 650 mg PO DAILY nitroglycerin [Nitrostat] 0.4 mg tablet, sublingual 0.4 mg SL Q5M PRN PreserVision AREDS [id number] Tablet 1 tab PO DAILY pravastatin 20 mg Tablet 40 mg PO QPM Qty: 60 3RF famotidine 20 mg tablet 20 mg PO DAILY chlorthalidone 50 mg tablet 25 mg PO DAILY Xarelto 20 mg tablet 20 mg PO QPM Qty: 6 0RF Rx Instructions: must administer with evening meal Discharge Instructions Additional Instructions: Please follow-up with your primary care physician for repeat assessment, with persistent symptoms he may need an MRI of your lumbar spine at the discretion of your doctor course Please take the prednisone as prescribed and continue to supplement with Tylenol, stay away from ibuprofen as you are on Xarelto Please return earlier should you have changes in bowel or bladder, chest pain or shortness of breath, abdominal pain, or should you have new or worsening complaints including fever And like for you to follow-up with your doctor this week for reassessment Referrals: Cristiane Rodriguez MD [Primary Care Provider] - 1 day Discharge Data Discharge Date/Time-TO BE ENTERED AT DEPARTURE: 01/25/23 16:03 Medical Decision Making 77-year-old female presents with hip pain with radiation into her leg, denies any abdominal pain, no concerning exam findings for retroperitoneal bleed or abdominal aortic complication, We will order prednisone, x-rays of lumbar spine and hip, she may need outpatient MRI, I will prescribe prednisone as she is on Xarelto HPI General Date/Time Provider Initiated Documentation: 01/25/23 14:04 . HPI Narrative: This 77-year-old female presents with report of back pain, specifically in the right sacroiliac region, she states that she had an episode around [place] time that resolved on its own but this pain has been worsening and occasionally she feels like her leg might give out secondary to discomfort and paresthesias. She has had some mendez paresthesia which has been worsening over the course of the past week. She denies any changes in bowel or bladder, she denies illicit drug use. She denies any groin numbness, she states the pain is exacerbated with ambulation. Related Data Home Medications Medication Instructions Recorded Confirmed aspirin 81 mg tablet,delayed 81 mg PO DAILY 01/22/16 01/25/23 release (Aspir-) ascorbic acid (vitamin C) 1,000 mg 1 gm PO DAILY 12/18/18 01/25/23 tablet calcium carbonate 600 mg calcium 600 mg PO DAILY 12/18/18 01/25/23 (1,500 mg) tablet (Calcium) cyanocobalamin (vitamin B-12) 1,000 mcg PO DAILY 12/18/18 01/25/23 1,000 mcg capsule pantoprazole 40 mg tablet,delayed 40 mg PO QAM 12/18/18 01/25/23 release vitamins A,C,Z-umsu-bsjqfv 2,148 1 tab PO DAILY 10/03/19 01/25/23 mcg-113 mg-45 mg-17.4 mg tablet (PreserVision AREDS) pravastatin 20 mg tablet 40 mg PO QPM #60 tabs 10/04/19 01/25/23 ferrous sulfate 325 mg (65 mg 650 mg PO DAILY 11/05/19 01/25/23 iron) tablet (Feosol) nitroglycerin 0.4 mg sublingual 0.4 mg sublingual Q5M PRN 11/05/19 01/25/23 tablet (Nitrostat) rivaroxaban 20 mg tablet (Xarelto) 20 mg PO QPM #6 tabs 11/06/19 01/25/23 atenolol 50 mg tablet 50 mg PO DAILY #90 tabs 11/08/19 01/25/23 famotidine 20 mg tablet 20 mg PO DAILY 11/08/19 01/25/23 potassium chloride 20 mEq 20 meq PO DAILY 11/08/19 01/25/23 tablet,extended release turmeric 400 mg capsule 1,000 mg PO DAILY 11/19/19 01/25/23 chlorthalidone 50 mg tablet 25 mg PO DAILY 10/20/20 01/25/23 escitalopram oxalate 10 mg tablet 10 mg PO DAILY 06/15/21 01/25/23 prednisone 20 mg tablet 40 mg PO ONCE #10 tabs 01/25/23 Previous Rx's Medication Instructions Recorded pravastatin 20 mg tablet 40 mg PO QPM #60 tabs 10/04/19 rivaroxaban 20 mg tablet (Xarelto) 20 mg PO QPM #6 tabs 11/06/19 atenolol 50 mg tablet 50 mg PO DAILY #90 tabs 11/08/19 prednisone 20 mg tablet 40 mg PO ONCE #10 tabs 01/25/23 Allergies Allergy/AdvReac Type Severity Reaction Status Date / Time Fish Containing Products Allergy Intermediate Verified 01/25/23 13:49 Penicillins Allergy Intermediate Verified 01/25/23 13:49 lactose AdvReac Intermediate Diarrhea Verified 01/25/23 13:49 seafood Allergy Severe Uncoded 01/25/23 13:49 General Stated Complaint: Nk/Back Pain KYLEE: 4 PFSH All Active Problems (Updated 01/25/23 @ 15:29 by KARINA Dominguez) Lumbar radiculopathy (Acute) Gastritis (Acute) Bradycardia (Acute) Cerebrovascular accident (Chronic) Aortic valve regurgitation (Acute) Stroke due to embolism (Acute) Atrial fibrillation (Chronic) Dysphagia (Acute) Medical History Anemia Anxiety Aortic valve regurgitation Chest pressure Dark stools Depression Heart burn Hiatal hernia History of dysthymic disorder Hyperplastic colonic polyp Hypertension Lactose intolerance Memory impairment Mitral valve regurgitation Pulmonary valve regurgitation Restless leg syndrome Surgical History Bladder Surgery Cholecystectomy EGD - MAC (07/12/17) 04/2022 Hx of colonoscopy pubovaginal sling Vaginal hysterectomy Family History Mother Colon cancer Social History Smoking/Tobacco Use Status: Former Tobacco Use Quit Date: 10/16/99 Tobacco: How many years used: 30 Smoking risk assessment performed?: Yes Alcohol Intake: current Alcohol Intake frequency: holidays/special occasions only Alcohol type: wine Drug use: Never Substance use type: does not use Details: last alcohol about two years ago Household members: spouse Housing: house Number of Children: 4 What is your relationship status?: Panel score (0-1 are the most socially isolated patients): 1 What type of physical activity do you participate in: none Seatbelt use: always Do you feel safe at home: Yes Do you feel safe in your relationship?: Yes Exam Narrative Exam Narrative: Patient Is Alert and oriented, pleasant in demeanor, normal respiratory rate, normal cardiac rate, no abdominal tenderness or CVA tenderness appreciated on exam, no Crawley Weathers sign, no abdominal bruit or pulsatile mass, neurovascularly intact, tenderness to palpation to right sacroiliac region, no rebound or guarding negative straight leg raise, neurovascularly intact distally she can Const General: cooperative, comfortable and no acute distress Resp Effort & Inspection: normal respiratory effort Cardio Rate: regular rate GI Other: no abdominal bruit or pulsatile mass Back/Spine/Pelvis Back: no CVA tenderness Back/spine/pelvis image: 1. tenderness with palpation Skin General skin exam: no rashes or lesions noted Neuro General: patient alert and patient oriented x3 Other: Strength and sensation intact distally, DTRs intact bilateral lower extremities, negative straight leg raise, negative Babinski Extrem Other: Range of motion of right hip intact Course Vital Signs Vital signs: Vital Signs Pulse 86 01/25/23 13:46 Respiratory Rate 18 01/25/23 13:46 Blood Pressure 132/62 01/25/23 13:46 Pulse Oximetry 96 01/25/23 13:46 Temperature Source Oral 01/25/23 13:46 Pulse 86 01/25/23 13:46 Respiratory Rate 18 01/25/23 13:46 Respiratory Effort Normal 01/25/23 13:50 Blood Pressure 132/62 01/25/23 13:46 Blood Pressure Position Supine 01/25/23 13:46 Pulse Oximetry 96 01/25/23 13:46 Oxygen Delivery Method Room Air 01/25/23 13:46 Oxygen Flow Rate 0 01/25/23 13:46 Pain Level 9 01/25/23 13:46
[2023-01-25] MEDS: predniSONE 20 MG TAB 40 MG PO (15:38)
== END 2023-01-25 16:03 | disposition home or self-care (01) ==
PROVIDERS: Emergency Provider Physician Assistant; PCP Family Medicine
DX: M54.16 Radiculopathy, lumbar region (principal)
CPT/HCPCS: 99283; 72110; 73502; 99284; J7512

== ENCOUNTER → 2023-06-27 00:27 | Outpatient (CLI) | payer MEDICARE, SELFPAY ==
--- NOTE | 2023-06-27 | DI.NM_ITS ---
APPROVED REPORT Exam: Exercise Treadmill Patient Location: Out-Patient Room/Bed: Stress Nurse: Julissa Luo RN Ordering Provider:TAI GRANT, Contact Number: [phone] BMI: 24.37 Baseline Rhythm: Atrial Fibrillation Comment: Occasional PVC's Indications: BROWNING Medical History Medical History: GERD, bradycardia, CVA, AV regurgitation, stroke, anxiety, HTN Cardiac Medications: Pravastatin, pantoprazole, nitro, aspirin, atenolol, chlorthalidone Allergies: Penicillins Cardiac Risk Factors: HTN Previous Cardiac Procedures: None Pretest Chest Pain Characteristics: None Exercise History: Physically active Physical Disabilities: None Lung Sounds: Clear to auscultation Heart Sounds: Irregular Stress Test Details Test: Exercise stress testing was performed using a Yassine protocol. Nuclear Acquisition: Rest Tc-99m/Stress Tc-99m 1 day Rest Isotope: Tc-99m Sestamibi. Dose: 10.0 Date: 06/27/2023 Injection Time: 0930 Stress Isotope: Tc-99m Sestamibi. Dose: 31.0 Date: 06/27/2023 Injection Time: 1107 HR Resting HR Supine: 63 bpm Max Heart Rate (APMHR): 141.484531 bpm Resting HR Standin bpm Target HR (85% APMHR): 119.788924 bpm Max HR Achieved: 132 bpm % of APMHR: 93.62 Recovery HR: 85 bpm HR response to stress: Normal HR response to stress BP Resting BP Supine: 158/58 mmHg Resting BP Standin/85 mmHg Max BP: 150/62 mmHg Recovery BP: 148/64 mmHg BP response to stress: Blunted blood pressure response to stress. ECG Resting ECG: Atrial Fibrillation Ectopy: Occasional PVC's Stress ECG: Atrial Fibrillation ST Change: Downsloping ST depression Lead(s): inferior leads Stage: 1, [address] Deviation: 1-2 mm Arrhythmia: Occasional PVC's Recovery ECG: Atrial Fibrillation Recovery ST Change: Downsloping ST depression Lead(s): inferior leads Recovery ST Deviation: 1-2 mm Recovery Arrhythmia: Occasional PVC's Comment: ST depressions recovers by the end of stage 3 of recovery. Clinical Reason for Termination: Fatigue, Dyspnea Stress Symptoms: Dyspnea, General Fatigue Exercise duration: 04 min41 sec Highest Stage Reached: Stage 2: 2.5 mph at 12% grade. Exercise capacity: 5.76 METs Angina Score: None Braga Treadmill Score: 1.0 Rate Pressure Product: Stress ECG Conclusion 1. The resting electrocardiogram showed atrial fibrillation, left ventricular hypertrophy with repola rization abnormalities 2. Patient exercised on the Yassine protocol and completed a workload of 5.76 METS 3. Normal heart rate and blood pressure response to exercise. Peak heart rate achieved was 94% of pr edicted for age 4. The electrocardiographic portion of the test did not demonstrate any evidence of myocardial ischem ia 5. See MPI report Braga Treadmill Score is 1.0 which is Moderate risk. Stress Test Summary STAGE Time (mins) Speed (mph) Grade (%) HR BP SpO2 SYMPTOMS METS Supine 63 158/58 98 Standing 72 124/85 1 3 1.7 10 118 150/58 Moderate SOB 4.5 2 6 2.5 12 103 Moderate SOB, general fatigue 7 1 min recovery 103 150/56 96 SOB and fatigue resolving. 3 min recovery 93 140/80 6 min recovery 81 150/62 9 min recovery 85 148/64 97 All symptoms resolved. MPI Conclusion Myocardial perfusion is normal. There is no ischemia or evidence of prior infarction Ejection fraction is 67% with normal wall motion Radiologist Interpretation Radiologist agrees with Pier Master's Interpretation. Radiologist Interpretation by: Zhnae Torre MD Interpretation Date/Time: 06/27/2023 16:35:42
== END ==
PROVIDERS: PCP Family Medicine; Visit Provider Family Medicine
DX: R06.09 Other forms of dyspnea (principal)
CPT/HCPCS: 78452; 93016; 93018; 93017

== ENCOUNTER → 2023-06-30 00:18 | Outpatient (CLI) | payer MEDICARE, SELFPAY ==
--- NOTE | 2023-06-30 | DI.MAMMO_ITS ---
Exam(s) MAMMO SCREENING EXAM: MAMMO SCREENING CLINICAL HISTORY: SCREENING MAMMO FOR BREAST CANCER Z12.31 TECHNIQUE: Bilateral full field digital CC and MLO mammographic images were obtained with 3D tomosyn thesis and utilizing computer aided detection (CAD). COMPARISON: Available for comparison. FINDINGS: Masses/Architectural Distortion: The well-circumscribed nodule in the lower inner quadrant of the lef t breast is again seen and has shown slight decrease in size measuring 12 mm on the current examinati on compared to 15 mm on the prior examination. No new or suspicious nodules or areas of architectura l distortion are present. Microcalcifications: No suspicious pleomorphic-type are seen. Skin Thickening/Nipple Retraction: None. IMPRESSION: 1. No significant interval change with no specific features of malignancy noted. 2. Unless there is more urgent need, screening mammography is recommended, as per [place] [employer] guidelines. BI-RADS Category 2 - Benign Findings Breast Density - Category B - Scattered areas of fibroglandular density Breast density category C or D implies that the patient has dense breast tissue. Dense breast tissue is very common and is not abnormal but dense breast tissue can make it harder to find cancer on a ma mmogram. Also, dense breast tissue may increase their breast cancer risk. This information about the result of the mammogram report was provided to the patient to raise their awareness. Use this report when you speak with the patient about their risks for breast cancer, which includes their family hist ory. At that time, you may recommend for more screening tests (Ultrasound or MRI) as they might be us eful based on their risk. A negative radiographic report should not delay biopsy if a dominant or clinically suspicious mass is present. Up to ten percent of cancers are not identified on mammography. A negative report may reinforce clinical impression. Adenosis and dense breasts may obscure an underlying neoplasm. False positive reports average 6 to 10%. Patient will receive a letter notifying them of these results.
== END ==
PROVIDERS: PCP Family Medicine; Visit Provider Family Medicine
DX: Z12.31 Encounter for screening mammogram for malignant neoplasm of breast (principal); N63.24 Unspecified lump in the left breast, lower inner quadrant
CPT/HCPCS: 77063; 77067

== ENCOUNTER → 2023-07-07 01:18 | Outpatient (CLI) | payer MEDICARE, SELFPAY ==
--- NOTE | 2023-07-07 | DI.MRI_ITS ---
Exam(s) MR LUMBAR SPINE WO EXAM: MR LUMBAR SPINE WO CLINICAL HISTORY: RT SCIATICA, M54.31,BACK PAIN. TECHNIQUE: Multiplanar multisequence MRI of the Lumbar spine was performed. COMPARISON: CR XR LUMBAR SPINE COMPLETE from 01/25/2023 FINDINGS: Bones: The last intervertebral disc space is designated the L5/S1 level for the numbering purpose of this ex amination. The vertebral body heights are well maintained. Alignment: Severe biconvex scoliosis. The marrow signal characteristics are unremarkable. Cord: The conus tip ends at the T12 level. It is of normal size and signal intensity. T12-L1: No focal disc herniation is present. No central spinal canal stenosis.No neural foraminal st enosis. L1-2: Prominent left-sided osteophytes. No focal disc herniation is present. No central spinal ca nal stenosis. Mild left neural foraminal stenosis. L2-3: No focal disc herniation is present. Left-sided facet degenerative changes. No central spinal canal stenosis.No neural foraminal stenosis. L3-4: Right-sided disc space narrowing. Endplate osteophytes.Right lateral disc protrusion. Severe bilateral neural foraminal narrowing. Mild central canal stenosis. L4-5:Prominent endplate osteophytes eccentric toward the right disc space narrowing, eccentric toward the right. Broad-based disc bulging. Mild right neural foraminal narrowing. Facet degenerative ch anges greater on the right. No focal disc herniation is present. No central spinal canal stenosis. L5-S1: Severe narrowing of the disc space on the right. Prominent red sided osteophytes. Facet dege nerative changes, prominent on the right. Moderate to severe right neural foraminal narrowing.. No central spinal canal stenosis.No neural foraminal stenosis. The visualized SI joints and sacrum are well maintained. Soft tissues: The paraspinal soft tissues are unremarkable. IMPRESSION: Multilevel asymmetric degenerative disc space narrowing and prominent endplate osteophytes. Signific ant scoliosis. Neural foraminal narrowing greatest at L3-4 and on the right at L5-S1. Small right-sided disc protrusion and mild central canal stenosis at L3-4. DATA REPOSITORY:
== END ==
PROVIDERS: PCP Family Medicine; Visit Provider Family Medicine
DX: M99.63 Osseous and subluxation stenosis of intervertebral foramina of lumbar region (principal); M48.062 Spinal stenosis, lumbar region with neurogenic claudication
CPT/HCPCS: 72148

== ENCOUNTER → 2023-08-22 10:05 | Outpatient (BNVA) | payer MEDICARE, SELFPAY | PROVIDERS: PCP Family Medicine; Visit Provider Internal Medicine Cardiovascular Disease | DX: I48.21 Permanent atrial fibrillation (principal); Z79.01 Long term (current) use of anticoagulants; Z86.73 Personal history of transient ischemic attack (TIA), and cerebral infarction without residual deficits; I35.1 Nonrheumatic aortic (valve) insufficiency; I34.0 Nonrheumatic mitral (valve) insufficiency; I10 Essential (primary) hypertension | CPT/HCPCS: 99214 ==

== ENCOUNTER 2024-03-18 18:52 | Outpatient (REF) | payer MEDICARE, SELFPAY ==
[2024-03-18 18:33] LABS: HCT 39.7 % (36.0-46.0); HGB 12.4 g/dL (11.2-15.7); MCH 28.7 pg (27.0-33.0); MCHC 31.2 % (32.0-36.0); MCV 92 fL (80-95); MPV 10.2 fL (8.0-11.0); Platelet Count 214 10^3/uL (130-400); RBC 4.32 10^6/uL (3.93-5.22); RDW 13.5 % (11.7-14.6); RDW-SD 45.5 fL; WBC 6.88 10^3/uL (4.4-10.8)
[2024-03-18 18:43] LABS: BUN 14 mg/dL (7-18); Calcium 8.8 mg/dL (8.5-10.1); Chloride 105 mmol/L (98-107); Estimated GFR 56.95 (mL/min/1.73m2); Glucose 90 mg/dL (74-106); Potassium 3.4 mmol/L (3.5-5.1); Sodium 145 mmol/L (136-145)
[2024-03-18 19:10] LABS: Ferritin 127 ng/mL (8-252)
== END 2024-03-18 18:53 | disposition home or self-care (01) ==
LOC: NCHCN 18:52
PROVIDERS: PCP Family Medicine; Visit Provider Family Medicine
DX: D64.9 Anemia, unspecified (principal); N18.9 Chronic kidney disease, unspecified
CPT/HCPCS: 80048; 85027; 82728

== ENCOUNTER 2024-08-14 00:49 | Outpatient (CLI) | payer MEDICARE, SELFPAY ==
--- NOTE | 2024-08-14 14:30 | DI.US_ITS ---
APPROVED REPORT EXAM: Comprehensive 2D, Doppler, and color-flow Echocardiogram Patient Location: Out-Patient Settlement Agent: Evie Pastor RDCS (AE) Indications: Check AI, MR, Atrial Fibrillation, Other Information Study Quality: Adequate Conclusion Normal left ventricular wall thickness and chamber size. Ejection fraction is 60%. Wall motion is n ormal Normal right ventricular size and function Both atria are mildly enlarged Aortic valve is trileaflet and minimally thickened with trace to mild regurgitation Normal mitral valve with mild to moderate regurgitation Mild tricuspid regurgitation. Estimated right ventricular systolic pressure is 28 mmHg Wall motion Left Ventricle The left ventricle is normal size. The left ventricular systolic function is normal. The left ventric ular ejection fraction is within the normal range. There is normal left ventricular wall thickness. T here is normal LV segmental wall motion. There is no ventricular septal defect visualized. LVEF is 60 %. Right Ventricle The right ventricle is normal size. The right ventricular systolic function is normal. Atria Left atrium is mildly dilated. Right atrium is mildly dilated. The interatrial septum is intact with no evidence for an atrial septal defect. Aortic Valve The aortic valve is minimally thickened Aortic valve is trileaflet. There is no aortic valvular steno sis. Trace to mild aortic regurgitation. Mitral Valve The mitral valve is normal in structure. No evidence of mitral valve stenosis. Mild to moderate mitr al regurgitation. Tricuspid Valve The tricuspid valve is normal in structure. There is no tricuspid valve stenosis. Mild tricuspid regu rgitation. The RVSP is 28.4 mmHg. Pulmonic Valve The pulmonary valve is normal in structure. There is no pulmonic valvular stenosis. Trace pulmonic re gurgitation. Great Vessels The aortic root is normal in size. The ascending aorta is normal in size. Aortic arch is not well vis ualized. IVC is normal in size and collapses >50% with inspiration. Pericardium There is no pericardial effusion. 2D Dimensions IVSD d PLAX 0.80 cm F: 0.6-1.0 Ao Root d 2.64 cm F: 2.7 - 3.3 LVPW d PLAX 0.80 cm F: 0.6 - 1.0 Ao Asc Diam d 2.72 cm F: 2.3 - 3.1 LVID d PLAX 4.43 cm F: 3.8 - 5.2 LVDs 3.20 cm F: 2.2 - 3.5 LV EF Teichholz 55.6 % FS 28.82 % LV EDV (Teich) 89.0 mL LV ESV (Teich) 39.5 mL M-Mode TAPSE 1.25 cm (M/F) >1.7 Auto EF LV EDV A4C 56.1 mL LV EDV A2C 74.9 mL LV EDV BP 65.4 mL LV ESV A4C 26.1 mL LV ESV A2C 35.4 mL LV ESV BP 30.1 mL LVEF(%) A4C 53.6 % LVEF(%) A2C 52.7 % LVEF(%) BP 54.0 % LV SV A4C 30.1 ml LV SV A2C 39.5 ml LV SV BP 35.3 ml LV CO A4C 1.7 L/min LV CO A2C 2.1 L/min LV CO BP 1.9 L/min HR A4C 56.25 BPM HR A2C 54.14 BPM LV EDV Index (BP) LA Volume LA Length A4C 5.7 cm LA Length A2C 5.7 cm LA Area A4C s 19.67 cm2 LA Area A2C s 19.54 cm2 LA Vol A4C A-L 57.40 mL LA Vol A2C A-L 56.52 mL LA Vol Biplane A-L 57.0 mL LA Vol/BSA A4C A-L LA Vol/BSA A2C A-L LA Vol/BSA BP A-L 36.3 mL/m2 LA Vol A4C MOD 53.0 mL LA Vol A2C MOD 52.1 mL LA Vol BP MOD 52.2 mL RA Volume RA Area A4C 13.9 cm2 RA ESV A4C (A-L) 32.7mL RA Vol/BSA A4C A-L RA Length A4C 5.0 cm RA ESV A4C (MOD) 30.6mL LV Diastology MV E' medial 0.102 (>0.07 m/s) MV E Vmax 0.89 (0.4-1.3 m/s) MV E' lateral 0.115 (>0.1 m/s) Aortic Valve AoV Vmax 1.27 m/s LVOT Vmax 0.88 m/s AoV Peak Grad 39.3 mmHg LVOT Peak Grad 3.1 mmHg AoV Area (Vmax) 1.88 cm2 LVOT VTI 0.194 m AoV VTI 0.261 m LVOT Mean Grad 1.7 mmHg AoV Mean Bj. 0.88 m/s LVOT SV 52.50 mL AoV Mean Grad 3.5 mmHg LVOT Diam s 1.85 cm AoV Area (VTI) 2.01 cm2 AV Regurg Peak Gr. 6.42 mmHg Velocity Ratio 0.69 AR Decel [place] 2.4m/sec2 AR DT 1806 msec AR PHT 524 msec AR Vmax 4.25 m/s Mitral Valve MV Vmax TIPS 1.01 m/s MV Mean Grad 1.7 (<2mmHg) MV Area PHT 5.40 cm2 MV VTI 0.198 m Pulmonary Valve PV Vmax 1.00 (0.5-1.5 m/s) RVOT Vmax 0.91 m/s PV Peak Grad 4.0 mmHg RVOT Peak Gr. 3.3 mmHg PV Mean Bj 0.69 m/s RVOT VTI 0.203 m PV Mean Grad 2.1 mmHg RVOT Mean Gr. 1.8 mmHg Tricuspid Valve RA Pressure 3.00 mmHg TR Vmax 2.52 m/s TV S' 0.12 m/s TR Peak Grad 25.4 mmHg RVSP (TR) 28.4 mmHg
== END 2024-08-14 01:09 ==
LOC: DI 00:49
PROVIDERS: PCP Family Medicine; Visit Provider Internal Medicine Cardiovascular Disease
DX: I48.91 Unspecified atrial fibrillation (principal); I35.1 Nonrheumatic aortic (valve) insufficiency; I34.0 Nonrheumatic mitral (valve) insufficiency
CPT/HCPCS: 93306

== ENCOUNTER → 2024-08-20 13:45 | Outpatient (BNVA) | payer MEDICARE, SELFPAY | PROVIDERS: PCP Family Medicine; Visit Provider Internal Medicine Cardiovascular Disease | DX: I48.21 Permanent atrial fibrillation (principal) | CPT/HCPCS: 99213 ==

== ENCOUNTER 2025-01-31 12:24 | Outpatient (REF) | payer MEDICARE, SELFPAY ==
[2025-01-31 15:15] LABS: HCT 38.1 % (36.0-46.0); HGB 11.8 g/dL (11.2-15.7); MCH 28.3 pg (27.0-33.0); MCV 91 fL (80-95); MPV 9.9 fL (8.0-11.0); Platelet Count 226 10^3/uL (130-400); RBC 4.17 10^6/uL (3.93-5.22); RDW 14.3 % (11.7-14.6); RDW-SD 47.8 fL; WBC 4.66 10^3/uL (4.4-10.8)
[2025-01-31 15:26] LABS: Anion Gap 8.9 mmol/L (3-11); BUN 15 mg/dL (7-18); CO2 30.1 mmol/L (21.0-32.0); Calcium 9.4 mg/dL (8.5-10.1); Chloride 106 mmol/L (98-107); Estimated GFR 56.95 (mL/min/1.73m2); Glucose 101 mg/dL (74-106); Potassium 3.9 mmol/L (3.5-5.1); Sodium 145 mmol/L (136-145)
== END 2025-01-31 12:25 | disposition home or self-care (01) ==
LOC: NCHCN 12:24
PROVIDERS: PCP Family Medicine; Visit Provider Family Medicine
DX: N18.9 Chronic kidney disease, unspecified (principal)
CPT/HCPCS: 80048; 85027

== ENCOUNTER 2025-05-28 14:38 | Outpatient (CLI) | payer MEDICARE, SELFPAY ==
--- NOTE | 2025-05-28 | DI.MAMMO_ITS ---
Exam(s) MAMMO SCREENING EXAM: MAMMO SCREENING CLINICAL HISTORY: SCREENING MAMMO Z12.31 TECHNIQUE: Mammograms were interpreted according to the usual protocol including computer analysis with CAD system, tomosynthesis and C-view imaging. COMPARISON: No exams were available for comparison FINDINGS: The breasts are composed of scattered fibroglandular densities, Breast Density category B. No suspicious masses or suspicious microcalcifications are seen. There has been continued decrease in size of the previously noted nodule in the lower inner quadrant of the left breast. No skin thickening or abnormal axillary lymph nodes are seen. IMPRESSION: BI-RADS Category 2 - Benign Findings Yearly screening mammography is recommended. Breast Density - Category B - There are scattered areas of fibroglandular density. Breast density Category C or D implies that the patient has dense breast tissue. Dense breast tissue can make it harder to find cancer on a mammogram. Dense breast tissue is also associated with an increased risk of breast cancer. This information about the result of the mammogram report was provided to the patient to raise their awareness. Use this report when you speak with the patient about their risks for breast cancer, which includes their family history. At that time, you may recommend additional screening tests (Ultrasound or MRI) as these tests may add significant information. A negative radiographic report should not delay biopsy if a dominant or clinically suspicious mass is present. Up to ten percent of cancers are not identified on mammography. A negative report may reinforce clinical impression. Adenosis and dense breasts may obscure an underlying neoplasm. False positive reports average 6 to 10%. Patient will receive a letter notifying them of these results.
== END 2025-05-28 14:58 ==
LOC: DI 14:38
PROVIDERS: PCP Family Medicine; Visit Provider Family Medicine
DX: Z12.31 Encounter for screening mammogram for malignant neoplasm of breast (principal); R92.323 Mammographic fibroglandular density, bilateral breasts
CPT/HCPCS: 77063; 77067

== ENCOUNTER 2025-08-19 07:50 | Outpatient (CLI) | payer MEDICARE, SELFPAY ==
--- NOTE | 2025-08-19 07:45 | RT.EKG_ITS ---
APPROVED REPORT Exam: Resting ECG Reason for Exam: afib Patient Location: O HR:78 bpm ECG Measurements Heart Rate 78 AXIS DE [id number] P [id number] QRSd 80 QRS 26 QT 410 T 11 QTc 468 Conclusion Atrial fibrillation.. Poor R wave progression Diffuse ST-T abnormalities
== END 2025-08-19 07:51 | disposition home or self-care (01) ==
LOC: DI.CARD 07:51
PROVIDERS: PCP Family Medicine; Visit Provider Internal Medicine Cardiovascular Disease
DX: R00.1 Bradycardia, unspecified (principal); I48.21 Permanent atrial fibrillation
CPT/HCPCS: 93010

== ENCOUNTER → 2025-08-19 13:25 | Outpatient (BNVA) | payer MEDICARE, SELFPAY | PROVIDERS: PCP Family Medicine; Visit Provider Internal Medicine Cardiovascular Disease | DX: I48.21 Permanent atrial fibrillation (principal); I35.1 Nonrheumatic aortic (valve) insufficiency; R00.1 Bradycardia, unspecified; Z79.01 Long term (current) use of anticoagulants | CPT/HCPCS: 99213; 93005 ==